=== PATIENT | female | born 1960 | race Caucasian/White ===

== ENCOUNTER 2016-07-17 07:23 | Inpatient (IN) ==
[2016-07-17] MEDS ORDERED: Ipratropium/Albuterol Neb 3 ML ONE (07:54)
[2016-07-17] MEDS ORDERED: Ipratropium/Albuterol Neb 3 ML IH ONE (07:55)
[2016-07-17 08:08] LABS: Basophils % 0.8 %; Eosinophils # 0.1 K/mcL (0.0-0.6); Hematocrit 41.3 % (35.3-44.9); Immature Granulocytes % 0.4 % (0-4); Lymphocytes # 1.1 K/mcL (0.6-4.6); Lymphocytes % 20.5 %; Mean Corpuscular HGB Conc 31.5 g/dL (31.6-35.5); Mean Corpuscular Volume 82.6 fL (83.0-100.0); Mean Platelet Volume 10.8 fL (9.4-12.4); Monocytes # 0.4 K/mcL (0.0-1.3); Monocytes % 8.4 %; Neutrophils # 3.6 K/mcL (1.6-8.9); Platelet Count 114 K/mcL (140-400); Red Cell Distribution Width 15.8 % (11.5-14.5); Segmented Neutrophils % 68.9 %
[2016-07-17] MEDS ORDERED: *HR* LORazepam 1 MG TABLET PO ONE (08:15)
--- NOTE | 2016-07-17 08:17 | Emergency Department Note ---
Disposition Clinical Impression: Acute exacerbation of chronic obstructive airways disease Disposition: Admitted As Inpatient Condition: Fair Prescriptions: LORazepam [Ativan] 1 mg PO TID PRN #6 tablet PRN Reason: Anxiety Referrals: Jona Back CNP [Primary Care Provider] - Forms: ED Satisfaction Letter Time of Disposition: 09:13 SOB HPI - General Chief Complaint: ED Shortness of Breath/Dyspnea Stated Complaint: short of breath Time Seen by Provider: 07/17/16 08:15 Source: patient Limitations: no limitations Nursing Notes Reviewed: Yes Vital Signs Reviewed: Yes - History of Present Illness 48-year-old female brought into the ED per EMS with progressive worsening of shortness of breath cough over the past week. This been ongoing for the past week. She has chronic COPD. She was given a breathing treatment in route which made her feel better. No chest pain. - Related Data Home Medications Medication Instructions Recorded Confirmed Albuterol Neb [Proventil Neb] 2.5 mg IH BID 03/31/15 07/17/16 Aspirin 325 mg PO DAILY 03/31/15 07/17/16 Buspirone [Buspar] 5 mg PO TID 03/31/15 07/17/16 Dicyclomine [Bentyl] 10 mg PO QID 03/31/15 07/17/16 Docusate [Colace] 100 mg PO DAILY 03/31/15 07/17/16 Multivitamin/Iron/Folic Acid 1 each PO DAILY 03/31/15 07/17/16 [Cerovite Advanced Form Tab] Sertraline [Zoloft] 100 mg PO BID 03/31/15 07/17/16 Simvastatin [Zocor] 10 mg PO HS 03/31/15 07/17/16 Tizanidine [Zanaflex] 4 mg PO Q8HR 03/31/15 07/17/16 Cholestyramine/Aspartame 4 gm PO DAILY 11/02/15 07/17/16 [Cholestyramine Light Packet] Ondansetron HCl [Zofran] 8 mg PO Q12H PRN 11/02/15 07/17/16 Pregabalin [Lyrica] 100 mg PO BID 11/02/15 07/17/16 Hydrocodone/Acetaminophen [[place] 1 each PO BID 11/30/15 07/17/16 5-325 Tablet] Acetaminophen [8 Hour] 650 mg PO Q6HR PRN 05/14/16 07/17/16 Esomeprazole Magnesium [Nexium] 40 mg PO DAILY 05/14/16 07/17/16 Lidocaine Patch [Lidoderm 5% patch] 1 each TP HS 05/14/16 07/17/16 Losartan Potassium [Cozaar] 100 mg PO DAILY 05/14/16 07/17/16 Metoprolol XL (24 HR) Succ [Toprol 25 mg PO DAILY 05/14/16 07/17/16 XL] Nitroglycerin [Nitrostat] 0.4 mg SL PRN PRN 05/14/16 07/17/16 Previous Rx's Medication Instructions Recorded LORazepam [Ativan] 1 mg PO TID PRN #6 tablet 07/17/16 Allergies Allergy/AdvReac Type Severity Reaction Status Date / Time Iodinated Contrast Media - Allergy Hives Verified 07/17/16 07:27 Oral and [Iodinated Contrast Media - IV Dye] Sulfa (Sulfonamide Allergy Hives Verified 07/17/16 07:27 Antibiotics) tetanus and diphtheria Allergy Hives Verified 07/17/16 07:27 toxoids [Tetanus&Diphtheria Toxoid] All systems ED: reviewed and negative except as stated. Constitutional: Denies: fever, chills, weakness, weight change ENT ED: Denies: ear pain, throat pain, dental pain, hearing loss, epistaxis, congestion, dysphagia Cardiovascular: Reports: dyspnea on exertion. Denies: chest pain, palpitations , edema, syncope Respiratory: Reports: cough, wheezes. Denies: dyspnea, hemoptysis, stridor Gastrointestinal: Denies: abdominal pain, nausea, vomiting, diarrhea, constipation, hematemesis, melena, hematochezia Genitourinary: Denies: dysuria, frequency, hematuria, discharge Musculoskeletal: Denies: back pain, neck pain, arthralgia, myalgia Integumentary: Denies: rash, abrasion, lesions Neurological: Denies: headache, weakness, numbness, paresthesias, confusion, abnormal gait, vertigo Past Medical History - Past Medical History Medical history: Reports: asthma, COPD, diabetes, GERD, hyperlipidemia, hypertension, other Surgical history: Reports: cholecystectomy, hysterectomy, knee replacement Psychiatric history: Reports: anxiety, depression FUNDER history: Reports: no FUNDER history - Social History Smoking Status: Never smoker Smokeless Tobacco Status: No Alcohol use: Reports: none Drug use: Reports: none Physical Exam - General Limitations: no limitations General appearance: alert, in no apparent distress - ENT ENT exam: normal exam, normal oropharynx, mucous membranes moist - Chest Chest inspection: Present: normal inspection, symmetric chest wall rise - Respiratory Respiratory exam: Present: wheezes - Abdominal Exam Abdominal exam: Present: soft, Non-Tender. Absent: tenderness, distention, guarding, rebound, rigidity - Extremities Exam Extremities exam: Present: normal inspection, full ROM. Absent: tenderness, pedal edema Course Vital Signs O2 Sat by Pulse Oximetry 91 L 07/17/16 07:25 Temperature 97.1 F L 07/17/16 07:34 Pulse Rate 72 07/17/16 08:32 Respiratory Rate 88 07/17/16 08:32 Blood Pressure 111/81 07/17/16 08:32 O2 Sat by Pulse Oximetry 88 L 07/17/16 08:32 Oxygen Delivery Oxygen Delivery Nasal Cannula Shortness of Breath/Dyspnea - [facility] Narrative Medical decision making narrative: copd plan admission - Lab Data Result diagrams: 07/17/16 07:50 07/17/16 07:50 Lab Results 07/17/16 07/17/16 07/17/16 Range/Units 07:50 07:50 07:50 WBC 5.2 (4.3-11.1) K/mcL RBC 5.00 H (3.82-4.97) M/mcL Hgb 13.0 (11.5-15.4) g/dL Hct 41.3 (35.3-44.9) % MCV 82.6 L (83.0-100.0) fL MCH 26.0 L (28.0-33.3) pg MCHC 31.5 L (31.6-35.5) g/dL RDW 15.8 H (11.5-14.5) % Plt Count 114 L (140-400) K/mcL MPV 10.8 (9.4-12.4) fL Immature Gran % 0.4 (0-4) % Seg Neutrophils % 68.9 % Lymphocytes % 20.5 % Monocytes % 8.4 % Eosinophils % 1.0 % Basophils % 0.8 % Neutrophils # 3.6 (1.6-8.9) K/mcL Lymphocytes # 1.1 (0.6-4.6) K/mcL Monocytes # 0.4 (0.0-1.3) K/mcL Eosinophils # 0.1 (0.0-0.6) K/mcL Basophils # 0.0 (0.0-0.2) K/mcL Sodium 142 (136-145) mEq/L Potassium 3.7 (3.5-4.5) mEq/L Chloride 105 (98-109) mEq/L Carbon Dioxide 26 (19-29) mEq/L BUN 15 (7-20) mg/dL Creatinine 0.78 (0.57-1.11) mg/dL Est GFR ( Amer) > 60 (> 60) Est GFR (Non-Af Amer) > 60 (> 60) BUN/Creatinine Ratio 19 (6-26) Glucose 124 H (70-99) mg/dL Calculated Osmolality 296 (280-300) Calcium 8.7 (8.6-10.8) mg/dL Troponin I 0.03 (0-0.03) ng/mL
[2016-07-17 08:26] LABS: BUN/Creatinine Ratio 19 (6-26); Blood Urea Nitrogen 15 mg/dL (7-20); Calcium 8.7 mg/dL (8.6-10.8); Carbon Dioxide 26 mEq/L (19-29); Chloride 105 mEq/L (98-109); Glucose 124 mg/dL (70-99); Osmolality,Calculated 296 (280-300); Potassium 3.7 mEq/L (3.5-4.5); Sodium 142 mEq/L (136-145); eGFR For African Americans > 60 (> 60); eGFR For Non-African Americans > 60 (> 60)
[2016-07-17] MEDS ORDERED: Acetaminophen 325 MG TABLET PO PRN (09:10)
--- NOTE | 2016-07-17 11:29 | Electrocardiograph Report ---
[facility] Test Date: 2016-07-17 Pat Name: Manuel Guzman Department: 2001 Room: 112 Gender: F Benzol Operator: Tlc : 1960 Requested By: Shaye Emmanuel Order Number: [id number] Reading MD: Micaela Beltran Measurements Intervals [place] Rate: 72 P: 56 OK: 166 QRS: 6 QRSD: 97 T: 56 QT: 393 QTc: 417 Interpretive Statements SINUS RHYTHM Electronically Signed On 07-17-16 11:28:45 EST by Micaela Beltran
[2016-07-17] MEDS: Levofloxacin 500 MG/100 ML 500 MG/100 ML BAG IVPB SCH (12:00)
[2016-07-17] MEDS: MethylPREDNISolone 40 MG/ML VIAL IVP SCH ×2 (15:19→23:13)
[2016-07-17 16:00] LABS: Bilirubin,Urine Negative (Negative); Blood,Urine Negative (Negative); Clarity,Urine Clear (Clear); Color,Urine Yellow (Yellow); Glucose,Urine (UA) Normal (Normal); Ketones,Urine Negative (Negative); Leukocyte Esterase,Urine Negative (Negative); Nitrite,Urine Negative (Negative); Protein,Urine 30 mg/dL (Neg-Trace); Specific Gravity,Urine >= 1.030 (1.010-1.025); Urobilinogen,Urine Normal (Normal)
[2016-07-17 16:16] LABS: WBC,Urine 0-3 per hpf (0-3)
[2016-07-17] MEDS ORDERED: Dextrose Gel 15 GM PO PRN ×2 (16:45)
[2016-07-17] MEDS ORDERED: *HR* Dextrose 50 % in Water (Syg) 50 ML SYRINGE IVP PRN (16:45)
[2016-07-17] MEDS ORDERED: D5% in Water 1,000 ML IV PRN (16:45)
[2016-07-17] MEDS: Insulin LISPRO 300 UNITS/3 ML VIAL SQ SCH ×2 (17:28→20:44)
[2016-07-17] MEDS ORDERED: *HR* HYDROcodone/Acet 5/325 mg TABLET PO SCH (21:00)
--- NOTE | 2016-07-17 21:27 | Internal Med History&Physical ---
Date of Encounter: 07/17/16 Time of Encounter: 22:02 Assessment and Plan (1) Acute exacerbation of chronic obstructive airways disease Current visit: Yes Status: Acute sHe is admitted for an acute exacerbation has smoke exposure in the home she is not a smoker. sHe also has sarcoidosis. She was hypoxic in the emergency room she is requiring 4 L for continue oxygen wean as tolerated. She is on Levaquin she is on albuterol nebs and Solu-Medrol 80 mg IV every 8 hours. We will continue to follow her she is not stable for discharge her oxygen saturation has to be improved and her breathing has improved. tHey tried To get her home in the emergency room with DuoNeb's and the Solu-Medrol but she was not stable for discharge due to her hypoxia. (2) Chronic back pain greater than 3 months duration Current visit: No Status: Acute She is on Lyrica and Zanaflex [place] at home we will continue to follow. (3) DVT prophylaxis Current visit: No Status: Acute sHe is on Lovenox for this (4) Hyperlipidemia Current visit: No Status: Acute Continue her home simvastatin. Qualifiers: Hyperlipidemia type: mixed hyperlipidemia Qualified Code(s): E78.2 - Mixed hyperlipidemia (5) Hypothyroidism Current visit: No Status: Acute She has not been on medication for this we will check a TSH in the a.m. this is on her old medical: History Qualifiers: Hypothyroidism type: acquired Qualified Code(s): E03.9 - Hypothyroidism, unspecified (6) Depression Current visit: No Status: Chronic Continue her home medications of BuSpar and Zoloft Qualifiers: Depression Type: other depression Qualified Code(s): F32.89 - Other specified depressive episodes (7) Diabetes mellitus type 2, diet-controlled Current visit: No Status: Chronic This is on her old chart will check hemoglobin A1c she is getting sliding scale and Accu-Cheks. (8) GERD (gastroesophageal reflux disease) Current visit: No Status: Chronic We will continue her home PPI. 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 Qualifiers: Irritable bowel syndrome type: with diarrhea Qualified Code(s): K58.0 - Irritable bowel syndrome with diarrhea Internal Medicine - H&P: HPI Chief complaint: can't breathe Admitted From: Home History of present illness: Ms. Guzman is a 56 year old female Past medical history of COPD and lung sarcoidosis present to the emergency room by squad after she was short of breath at home. sHe was given several duo nebs and Solu-Medrol with minimal improvement she still remained hypoxic requiring 4 L of oxygen per nasal cannula to keep her saturations in the 90s. Was not stable to go home she is admitted for further evaluation and treatment of her COPD. she started feeling sick on Saturday. It started with a cough and progressed to shortness of breath and wheezing. She has been having chills she does not have a known fever. She has been having night sweats she has been coughing up yellow sputum. She just got over having pneumonia last month. She was at home with her who is a smoker. He does smoke in the house. Her appetite has not been great but she has been drinking well. She is also complaining of some dysuria. Her urine has been sent for culture. Currently she is resting in the bed and comfortable she does have audible wheezing. Past Med Surg Social Fam HX - Past Medical History Source: patient Medical history: asthma, COPD, diabetes (with diabetic polyneuropathy), GERD, glaucoma, hyperlipidemia, hypertension, thyroid disease (hypothyroid), other ( sarcoidosis, RLS, fibromyalagia, lumbar spondylosis, chronic pain syndrome) Psychiatric history: anxiety, depression - Past Surgical History Surgical History: cholecystectomy (1996), hysterectomy (1994), knee replacement (right 2013, left 08/23/14), other (eye for glaucoma left 2010, dental extraction , eye lid 2010, EGD 11/10/15, colonoscopy polyps 2006, 2010) - Social History Smoking Status: Never smoker Smokeless Tobacco Status: No Alcohol use: none Drug use: none - Family History Mother Living Status: Still Living Hx Family Cardiac Disorders: Yes ("Heart problems", carotid artery disease) Hx Family Respiratory Disorders: Yes Hx Family Reproductive Disorders: Yes (ovarian cyst) Father Living Status: Age at : 67 Hx Family Cardiac Disorders: Yes (Some type of heart condition or CAD, CVA) Brother Hx Family Endocrine Disorder: Yes (dm2) Hx Family Neuromuscular Disorders: Yes (cva) Paternal Grandmother Living Status: Hx Family Cancer: Yes (eye) Maternal Grandfather Living Status: Hx Family Neuromuscular Disorders: Yes (cva) Internal Medicine - H&P: Meds Albuterol Neb [Proventil Neb] 2.5 mg IH BID 03/31/15 [History] Aspirin 325 mg PO DAILY 03/31/15 [History] Buspirone [Buspar] 5 mg PO TID 03/31/15 [History] Dicyclomine [Bentyl] 10 mg PO QID 03/31/15 [History] Docusate [Colace] 100 mg PO DAILY 03/31/15 [History] Multivitamin/Iron/Folic Acid [Cerovite Advanced Form Tab] 1 each PO DAILY [History] Sertraline [Zoloft] 100 mg PO BID 03/31/15 [History] Simvastatin [Zocor] 10 mg PO HS 03/31/15 [History] Tizanidine [Zanaflex] 4 mg PO Q8HR 03/31/15 [History] Cholestyramine/Aspartame [Cholestyramine Light Packet] 4 gm PO DAILY 11/02/15 [ History] Ondansetron HCl [Zofran] 8 mg PO Q12H PRN 11/02/15 [History] Pregabalin [Lyrica] 100 mg PO BID 11/02/15 [History] Acetaminophen [8 Hour] 650 mg PO Q6HR PRN 05/14/16 [History] Esomeprazole Magnesium [Nexium] 40 mg PO DAILY 05/14/16 [History] Lidocaine Patch [Lidoderm 5% patch] 1 each TP HS 05/14/16 [History] Losartan Potassium [Cozaar] 100 mg PO DAILY 05/14/16 [History] Metoprolol XL (24 HR) Succ [Toprol XL] 25 mg PO DAILY 05/14/16 [History] Nitroglycerin [Nitrostat] 0.4 mg SL PRN PRN 05/14/16 [History] Albuterol Neb [Proventil Neb] 2.5 mg IH Q4HR 07/17/16 [History] Furosemide [Lasix] 80 mg PO DAILY 07/17/16 [History] HYDROcodone/Acet 10/325 mg [[place] 10-325 mg] 1 tab PO BID PRN 07/17/16 [History] LORazepam [Ativan] 1 mg PO TID PRN #6 tablet 07/17/16 [Rx] Potassium Chloride [Klor-Con 10] 10 meq PO DAILY 07/17/16 [History] Allergies Iodinated Contrast Media - Oral and [Iodinated Contrast Media - IV Dye] Allergy (Verified 07/17/16 07:27) Hives Sulfa (Sulfonamide Antibiotics) Allergy (Verified 07/17/16 07:27) Hives tetanus and diphtheria toxoids [Tetanus&Diphtheria Toxoid] Allergy (Verified 07:27) Hives All Systems PM: A 10-system review of systems was performed and is negative for pertinent findings except as documented above in the HPI. - Constitutional Constitutional: chills, fatigue, night sweats, no fever(s) - EENT Eyes: loss of vision (She was supposed to have surgery on her right eye today.) Nose, mouth and throat: nasal discharge, post-nasal drip - Cardiovascular Cardiovascular ROS IM: dyspnea, no chest pain, no edema, no lightheadedness, no palpitations, no syncope - Respiratory Respiratory: cough, dyspnea, wheezing, chest congestion, excessive phlegm production (Yellow in color) - Gastrointestinal Gastrointestinal: diarrhea (This is chronic for her and has not changed), nausea , vomiting (She threw up once this morning and has not had any emesis since), no constipation, no hematochezia, no melena - Genitourinary Genitourinary: dysuria, urinary frequency - Musculoskeletal Musculoskeletal ROS IM: arthralgias (Chronic), myalgias (Chronic) - Integumentary Integumentary IM: no pruritus, no rash - Neurological Neurological ROS: headache(s) (She has a history of migraines), numbness - Constitutional Vitals: Temp Pulse Resp BP Pulse Ox 98.7 F 71 18 138/78 95 07/17/16 18:58 07/17/16 18:58 07/17/16 18:58 07/17/16 18:58 07/17/16 20:34 General appearance: Present: A&O X 3, no acute distress - Head Head exam: Present: atraumatic, normocephalic - Neck Neck exam general surgery: Present: normal inspection, supple, trachea midline. Absent: lymphadenopathy, tenderness, thyromegaly - Respiratory Respiratory exam: Present: decreased breath sounds, prolonged expiratory phase, wheezes. Absent: accessory muscle use - Cardiovascular Cardiovascular exam: Present: RRR, +S1, +S2 - GI/Abdominal GI/Abdominal exam: Present: normal bowel sounds, soft, no peritoneal signs. Absent: distended, guarding, tenderness - Extremities Exam Extremities exam: Present: normal capillary refill, warm. Absent: pedal edema - Skin Skin exam: Present: dry, warm. Absent: rash Internal Med - H&P Results - Labs CBC & Chem 7: 07/17/16 07:50 07/17/16 07:50 Labs: Urine 07/17/16 Range/Units 15:50 Urine Color Yellow (Yellow) Urine Clarity Clear (Clear) Urine pH 6.0 (5.0-8.0) pH Units Ur Specific [place] >= 1.030 H (1.010-1.025) Urine Protein 30 H (Neg-Trace) mg/dL Urine Glucose (UA) Normal (Normal) mg/dL
[2016-07-17] MEDS ORDERED: Albuterol 2.5 MG/3 ML NEBULIZER IH PRN (22:29)
[2016-07-17] MEDS: Ondansetron ODT 4 MG TAB.RAPDIS SL PRN (23:20)
[2016-07-18 05:35] LABS: Basophils % 0.2 %; Hematocrit 42.2 % (35.3-44.9); Hemoglobin 13.5 g/dL (11.5-15.4); Immature Granulocytes % 1.8 % (0-4); Lymphocytes # 0.6 K/mcL (0.6-4.6); Lymphocytes % 11.3 %; Mean Corpuscular Volume 81.2 fL (83.0-100.0); Mean Platelet Volume 10.7 fL (9.4-12.4); Monocytes # 0.2 K/mcL (0.0-1.3); Monocytes % 2.7 %; Neutrophils # 4.6 K/mcL (1.6-8.9); Platelet Count 134 K/mcL (140-400); Red Cell Distribution Width 15.2 % (11.5-14.5)
[2016-07-18 05:43] LABS: BUN/Creatinine Ratio 22 (6-26); Blood Urea Nitrogen 17 mg/dL (7-20); Calcium 9.2 mg/dL (8.6-10.8); Carbon Dioxide 24 mEq/L (19-29); Chloride 108 mEq/L (98-109); Glucose 167 mg/dL (70-99); Osmolality,Calculated 305 (280-300); Potassium 3.9 mEq/L (3.5-4.5); Sodium 145 mEq/L (136-145); eGFR For African Americans > 60 (> 60); eGFR For Non-African Americans > 60 (> 60)
[2016-07-18] MEDS: Albuterol 2.5 MG/3 ML NEBULIZER IH SCH ×2 (05:51→08:59)
[2016-07-18] MEDS: *HR* Enoxaparin 40 MG/0.4 ML SYRINGE SQ SCH (05:51)
[2016-07-18] MEDS: *HR* HYDROcodone/Acet 10/325 mg TABLET PO PRN ×2 (05:52→20:45)
[2016-07-18] MEDS: Aspirin 325 MG TABLET PO SCH (08:10)
[2016-07-18] MEDS: Metoprolol XL (24 HR) Succ 25 MG TAB.ER.24H PO SCH (08:10)
[2016-07-18] MEDS: Furosemide 40 MG TABLET PO SCH (08:10)
[2016-07-18] MEDS: MethylPREDNISolone 40 MG/ML VIAL IVP SCH ×2 (08:11→15:13)
[2016-07-18] MEDS: Insulin LISPRO 300 UNITS/3 ML VIAL SQ SCH ×4 (08:13→20:35)
[2016-07-18] MEDS: Levofloxacin 500 MG/100 ML 500 MG/100 ML BAG IVPB SCH (08:59)
[2016-07-18 10:53] LABS: Hemoglobin A1C 6.2 %
[2016-07-18] MEDS: Ondansetron ODT 4 MG TAB.RAPDIS SL PRN ×2 (10:56→17:34)
--- NOTE | 2016-07-18 13:13 | Internal Med Progress Note ---
Date of Encounter: 07/18/16 Time of Encounter: 13:43 - Assessment and plan (1) Acute exacerbation of chronic obstructive airways disease Current Visit: Yes Status: Acute Assessment and plan: will continue with the nebs, solumedrol, levaquin and oxygen. she is still having the high oxygen requirements (2) Chronic back pain greater than 3 months duration Current Visit: No Status: Acute Assessment and plan: will continue her home medication (3) DVT prophylaxis Current Visit: No Status: Acute Assessment and plan: lovenox (4) Hyperlipidemia Current Visit: No Status: Acute Assessment and plan: continue home medication Qualifiers: Hyperlipidemia type: mixed hyperlipidemia Qualified Code(s): E78.2 - Mixed hyperlipidemia (5) Hypothyroidism Current Visit: No Status: Acute Assessment and plan: she is not on medication and her tsh was normal Qualifiers: Hypothyroidism type: acquired Qualified Code(s): E03.9 - Hypothyroidism, unspecified (6) Depression Current Visit: No Status: Chronic Assessment and plan: continue home medication. stable Qualifiers: Depression Type: other depression Qualified Code(s): F32.89 - Other specified depressive episodes (7) Diabetes mellitus type 2, diet-controlled Current Visit: No Status: Chronic Assessment and plan: ssi and accuchecks. 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 she is still sob, not her usual self. pain is her normal. still with nausea, no emesis. - Constitutional Vitals: Temp Pulse Resp BP Pulse Ox 98.1 F 65 16 126/52 92 L 07/18/16 11:00 07/18/16 11:00 07/18/16 11:00 07/18/16 11:00 07/18/16 11:00 General appearance: Present: A&O X 3, no acute distress - Head Head exam: Present: atraumatic, normocephalic - Neck Neck exam general surgery: Present: supple, trachea midline. Absent: lymphadenopathy, tenderness - Respiratory Respiratory exam: Present: decreased breath sounds, prolonged expiratory phase, wheezes - Cardiovascular Cardiovascular exam: Present: RRR, +S1, +S2 - GI/Abdominal GI/Abdominal exam: Present: normal bowel sounds, soft, no peritoneal signs. Absent: guarding, tenderness - Extremities Exam Extremities exam: Present: normal capillary refill, warm. Absent: pedal edema - Skin Skin exam: Present: diaphoretic, warm. Absent: rash Internal Medicine: Result - Labs CBC & Chem 7: 07/18/16 05:15 07/18/16 05:15 Labs: Short CBC 07/18/16 Range/Units 05:15 WBC 5.5 (4.3-11.1) K/mcL Hgb 13.5 (11.5-15.4) g/dL Hct 42.2 (35.3-44.9) % Plt Count 134 L (140-400) K/mcL Neutrophils # 4.6 (1.6-8.9) K/mcL BMP 07/18/16 05:15 Sodium 145 Potassium 3.9 Chloride 108 Carbon Dioxide 24 BUN 17 Creatinine 0.76 Glucose 167 H Calcium 9.2 Urine 07/17/16 Range/Units 15:50 Urine Color Yellow (Yellow) Urine Clarity Clear (Clear) Urine pH 6.0 (5.0-8.0) pH Units Ur Specific [place] >= 1.030 H (1.010-1.025) Urine Protein 30 H (Neg-Trace) mg/dL Urine Glucose (UA) Normal (Normal) mg/dL Consult Discharge Plan - Plan Referrals: Jona Back CNP [Primary Care Provider] -
[2016-07-18] MEDS ORDERED: Albuterol 2.5 MG/3 ML NEBULIZER IH PRN (13:47)
[2016-07-18] MEDS: Ipratropium/Albuterol Neb 3 ML IH SCH ×3 (15:13→20:46)
[2016-07-19] MEDS: MethylPREDNISolone 40 MG/ML VIAL IVP SCH ×4 (00:05→23:11)
[2016-07-19] MEDS: Ipratropium/Albuterol Neb 3 ML IH SCH ×4 (04:52→23:10)
[2016-07-19] MEDS: *HR* Enoxaparin 40 MG/0.4 ML SYRINGE SQ SCH (05:58)
--- NOTE | 2016-07-19 08:29 | Internal Med Progress Note ---
Date of Encounter: 07/19/16 Time of Encounter: 08:28 - Assessment and plan (1) Acute exacerbation of chronic obstructive airways disease Current Visit: Yes Status: Acute Assessment and plan: will continue with the nebs, solumedrol, levaquin and oxygen. she is still having the high oxygen requirements. will have her try to wean the oxygen today. will likely still need several more days stay. changed to an admission yesterday. will likely need to go home on oxygen. It has been arranged but she will need to be requalified. (2) Chronic back pain greater than 3 months duration Current Visit: No Status: Acute Assessment and plan: will continue her home medication. it is at her baseline (3) DVT prophylaxis Current Visit: No Status: Acute Assessment and plan: lovenox. she is supposed to get up for a shower today (4) Hyperlipidemia Current Visit: No Status: Acute Assessment and plan: continue home medication Qualifiers: Hyperlipidemia type: mixed hyperlipidemia Qualified Code(s): E78.2 - Mixed hyperlipidemia (5) Hypothyroidism Current Visit: No Status: Acute Assessment and plan: she is not on medication and her tsh was normal. she is not hypothyroid Qualifiers: Hypothyroidism type: acquired Qualified Code(s): E03.9 - Hypothyroidism, unspecified (6) Depression Current Visit: No Status: Chronic Assessment and plan: continue home medication. stable Qualifiers: Depression Type: other depression Qualified Code(s): F32.89 - Other specified depressive episodes (7) Diabetes mellitus type 2, diet-controlled Current Visit: No Status: Chronic Assessment and plan: ssi and accuchecks. her hga1c was in range. she was not on medication prior to admission (8) GERD (gastroesophageal reflux disease) Current Visit: No Status: Chronic Assessment and plan: continue home medication. she had some nausea yesterday. we decreased the dose of the zofran to increase the frequency of it and it seems to be helping this am. 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 she often has diarrhea. she is suffering from constipation this visit. she took colace last night and will get another this am. Qualifiers: Irritable bowel syndrome type: with diarrhea Qualified Code(s): K58.0 - Irritable bowel syndrome with diarrhea - Subjective Interval history: she continues to require 3-4 l to keep her oxygen sats up. she is still sob, not her usual self. pain is her normal for her. still with nausea, but better today. ate a small amount of breakfast, no emesis. still no stool she took colace last night no result. will try again today. she is very tired. - Constitutional Vitals: Temp Pulse Resp BP Pulse Ox 98.5 F 71 18 158/71 94 L 07/19/16 07:22 07/19/16 07:22 07/19/16 07:22 07/19/16 07:22 07/19/16 07:22 General appearance: Present: A&O X 3, no acute distress - Head Head exam: Present: atraumatic, normocephalic - Neck Neck exam general surgery: Present: supple, trachea midline. Absent: lymphadenopathy, tenderness - Respiratory Respiratory exam: Present: decreased breath sounds, prolonged expiratory phase, wheezes - Cardiovascular Cardiovascular exam: Present: RRR, +S1, +S2 - GI/Abdominal GI/Abdominal exam: Present: normal bowel sounds, soft, no peritoneal signs. Absent: distended, guarding, tenderness - Extremities Exam Extremities exam: Present: normal capillary refill, warm. Absent: pedal edema - Skin Skin exam: Present: dry, warm. Absent: rash Internal Medicine: Result - Labs CBC & Chem 7: 07/18/16 05:15 07/18/16 05:15 Consult Discharge Plan - Plan Referrals: Jona Back CNP [Primary Care Provider] -
[2016-07-19] MEDS: *HR* HYDROcodone/Acet 10/325 mg TABLET PO PRN ×2 (08:43→23:10)
[2016-07-19] MEDS: Metoprolol XL (24 HR) Succ 25 MG TAB.ER.24H PO SCH (08:43)
[2016-07-19] MEDS: Ondansetron ODT 4 MG TAB.RAPDIS SL PRN ×2 (08:44→23:28)
[2016-07-19] MEDS: Aspirin 325 MG TABLET PO SCH (08:44)
[2016-07-19] MEDS: Levofloxacin 500 MG/100 ML 500 MG/100 ML BAG IVPB SCH (08:44)
[2016-07-19] MEDS: Furosemide 40 MG TABLET PO SCH (08:44)
[2016-07-19] MEDS: Insulin LISPRO 300 UNITS/3 ML VIAL SQ SCH ×4 (08:45→23:10)
[2016-07-20] MEDS: Ipratropium/Albuterol Neb 3 ML IH SCH ×4 (05:20→22:04)
[2016-07-20] MEDS: *HR* Enoxaparin 40 MG/0.4 ML SYRINGE SQ SCH (05:20)
[2016-07-20 05:43] LABS: Basophils % 0.2 %; Hematocrit 39.8 % (35.3-44.9); Hemoglobin 12.6 g/dL (11.5-15.4); Immature Granulocytes % 1.3 % (0-4); Lymphocytes # 0.9 K/mcL (0.6-4.6); Lymphocytes % 15.1 %; Mean Corpuscular HGB Conc 31.7 g/dL (31.6-35.5); Mean Corpuscular Hemoglobin 25.6 pg (28.0-33.3); Mean Corpuscular Volume 80.9 fL (83.0-100.0); Mean Platelet Volume 10.8 fL (9.4-12.4); Monocytes # 0.3 K/mcL (0.0-1.3); Monocytes % 4.8 %; Neutrophils # 4.7 K/mcL (1.6-8.9); Platelet Count 148 K/mcL (140-400); Red Blood Count 4.92 M/mcL (3.82-4.97); Red Cell Distribution Width 15.5 % (11.5-14.5); Segmented Neutrophils % 78.6 %
[2016-07-20 05:57] LABS: BUN/Creatinine Ratio 34 (6-26); Blood Urea Nitrogen 28 mg/dL (7-20); Calcium 9.1 mg/dL (8.6-10.8); Carbon Dioxide 30 mEq/L (19-29); Chloride 104 mEq/L (98-109); Glucose 151 mg/dL (70-99); Osmolality,Calculated 308 (280-300); Potassium 3.8 mEq/L (3.5-4.5); Sodium 145 mEq/L (136-145); eGFR For African Americans > 60 (> 60); eGFR For Non-African Americans > 60 (> 60)
--- NOTE | 2016-07-20 06:53 | Internal Med Progress Note ---
Date of Encounter: 07/20/16 Time of Encounter: 06:47 - Assessment and plan (1) Acute exacerbation of chronic obstructive airways disease Current Visit: Yes Status: Acute Assessment and plan: She is still requiring oxygen at 2 L to maintain saturations at 92%. She still is getting dyspneic with minimal exertion. Continue with oxygen, steroids and try to increase activity level. (2) IBS (irritable bowel syndrome) Current Visit: Yes Status: Acute Assessment and plan: No new complaints. She said she had nausea and required Zofran at bedtime and this is a frequent occurrence. Qualifiers: Irritable bowel syndrome type: with diarrhea Qualified Code(s): K58.0 - Irritable bowel syndrome with diarrhea (3) Chronic back pain greater than 3 months duration Current Visit: No Status: Acute Assessment and plan: She had no complaints of back pain. (4) Diabetes mellitus type 2, diet-controlled Current Visit: No Status: Chronic Assessment and plan: Will continue to monitor her blood sugars. Her glycohemoglobin was 6.2%. Sugars elevated due to her steroids. Typically she has diet controlled. (5) GERD (gastroesophageal reflux disease) Current Visit: No Status: Chronic Assessment and plan: Continue with her chronic medication. No new symptoms. Qualifiers: Esophagitis presence: esophagitis presence not specified Qualified Code(s) : K21.9 - Gastro-esophageal reflux disease without esophagitis (6) Hypertension Current Visit: No Status: Chronic Assessment and plan: Blood pressures are mildly increase intermittently. We will continue to monitor. Continue her current medication. Qualifiers: Hypertension type: essential hypertension Qualified Code(s): I10 - Essential (primary) hypertension (7) DVT prophylaxis Current Visit: No Status: Acute Assessment and plan: Continue with Lovenox for DVT prophylaxis and increase her activity. - Subjective Interval history: Patient states she is still coughing, but improved and it is not productive. She still gets short of breath when walking or in the shower and recuperating after the shower. She denies any cardiac type chest pain. Her bowels have moved and no abdominal pain. No tenderness or swelling and lower extremities. She is able to walk about 10 feet to the toilet but she becomes dyspneic doing so. - Constitutional Vitals: Temp Pulse Resp BP Pulse Ox 98.7 F 70 16 147/65 92 L 07/20/16 04:00 07/20/16 04:00 07/20/16 04:00 07/20/16 04:00 07/20/16 04:00 General appearance: Present: A&O X 3, no acute distress - Respiratory Additional comments: Diminished breath sounds and has end expiratory wheezes. No respiratory distress. - Cardiovascular Cardiovascular exam: Present: RRR, +S1, +S2. Absent: systolic murmur - GI/Abdominal GI/Abdominal exam: Present: soft. Absent: mass, tenderness - Extremities Exam Extremities exam: Absent: calf tenderness, pedal edema, tenderness Internal Medicine: Result - Labs CBC & Chem 7: 07/20/16 05:05 07/20/16 05:05 Labs: Short CBC 07/20/16 Range/Units 05:05 WBC 6.0 (4.3-11.1) K/mcL Hgb 12.6 (11.5-15.4) g/dL Hct 39.8 (35.3-44.9) % Plt Count 148 (140-400) K/mcL Neutrophils # 4.7 (1.6-8.9) K/mcL BMP 07/20/16 05:05 Sodium 145 Potassium 3.8 Chloride 104 Carbon Dioxide 30 H BUN 28 H D Creatinine 0.82 Glucose 151 H Calcium 9.1 Labs have been reviewed. Mildly elevated glucose from the steroids, glycohemoglobin is 6.2%. She takes no medication. May need to consider sliding scale insulin. Consult Discharge Plan - Plan Referrals: Jona Back CNP [Primary Care Provider] -
[2016-07-20] MEDS: MethylPREDNISolone 40 MG/ML VIAL IVP SCH ×2 (09:12→16:53)
[2016-07-20] MEDS: Aspirin 325 MG TABLET PO SCH (09:12)
[2016-07-20] MEDS: *HR* HYDROcodone/Acet 10/325 mg TABLET PO PRN ×2 (09:12→22:03)
[2016-07-20] MEDS: Levofloxacin 500 MG/100 ML 500 MG/100 ML BAG IVPB SCH (09:13)
[2016-07-20] MEDS: Metoprolol XL (24 HR) Succ 25 MG TAB.ER.24H PO SCH (09:13)
[2016-07-20] MEDS: Furosemide 40 MG TABLET PO SCH (09:13)
[2016-07-20] MEDS: Insulin LISPRO 300 UNITS/3 ML VIAL SQ SCH ×4 (09:14→22:03)
[2016-07-20] MEDS: Ondansetron ODT 4 MG TAB.RAPDIS SL PRN (22:02)
[2016-07-21] MEDS: MethylPREDNISolone 40 MG/ML VIAL IVP SCH ×2 (00:34→09:25)
[2016-07-21] MEDS: Ipratropium/Albuterol Neb 3 ML IH SCH ×4 (04:06→20:56)
[2016-07-21] MEDS: *HR* Enoxaparin 40 MG/0.4 ML SYRINGE SQ SCH (04:07)
[2016-07-21] MEDS: Ondansetron ODT 4 MG TAB.RAPDIS SL PRN ×3 (09:23→20:56)
[2016-07-21] MEDS: Metoprolol XL (24 HR) Succ 25 MG TAB.ER.24H PO SCH (09:23)
[2016-07-21] MEDS: Furosemide 40 MG TABLET PO SCH (09:24)
[2016-07-21] MEDS: Insulin LISPRO 300 UNITS/3 ML VIAL SQ SCH ×4 (09:25→20:56)
[2016-07-21] MEDS: Aspirin 325 MG TABLET PO SCH (09:25)
--- NOTE | 2016-07-21 14:39 | Internal Med Progress Note ---
Date of Encounter: 07/21/16 Time of Encounter: 14:34 - Assessment and plan (1) Acute exacerbation of chronic obstructive airways disease Current Visit: Yes Status: Acute Assessment and plan: She is improving from her acute exacerbation of chronic COPD/acute respiratory failure. We have been able to wean her oxygen from 4 L down to 1 L. I will decrease her Solu-Medrol. Continue with their nebulizer treatments. Try to increase your activity level and see how her respiratory symptoms do. (2) IBS (irritable bowel syndrome) Current Visit: Yes Status: Acute Assessment and plan: History of irritable bowel syndrome takes numerous medications. Some were cut back on admission, now she is having nausea. I am not sure if this is from irritable bowel or not. She does not have an acute abdomen. She has no abnormal findings on examination. Could she be having withdrawal from the Lyrica? I will restart her usual medications including cholestyramine and Bentyl and see what happens. Qualifiers: Irritable bowel syndrome type: with diarrhea Qualified Code(s): K58.0 - Irritable bowel syndrome with diarrhea (3) Chronic back pain greater than 3 months duration Current Visit: No Status: Acute Assessment and plan: She has chronic back pain. It is hard to gauge how much pain she is having compared to her baseline. Her Lidoderm patch and Lyrica were held. I will restart those and see how she does. (4) Diabetes mellitus type 2, diet-controlled Current Visit: No Status: Chronic Assessment and plan: Sugars are under reasonable control despite the IV steroid use. Her glycohemoglobin is good. We will continue to monitor. (5) GERD (gastroesophageal reflux disease) Current Visit: No Status: Chronic Assessment and plan: Seems to be under reasonable control unless this is the source of her nausea. Will continue PPI and we have restarted her irritable bowel medications. Qualifiers: Esophagitis presence: esophagitis presence not specified Qualified Code(s) : K21.9 - Gastro-esophageal reflux disease without esophagitis (6) Hypertension Current Visit: No Status: Chronic Assessment and plan: Blood pressure is under reasonable control. We will continue to monitor. Qualifiers: Hypertension type: essential hypertension Qualified Code(s): I10 - Essential (primary) hypertension (7) Morbid obesity with BMI of 40.0-44.9, adult Current Visit: Yes Status: Acute Assessment and plan: She is morbid obesity with a BMI of 42. This is likely of exogenous etiology. She is unlikely to be able to exercise this away. This likely contributes to some of her lassitude and respiratory symptoms. (8) DVT prophylaxis Current Visit: No Status: Acute - Subjective Interval history: Patient states that she slept well last night and also cat naps. She denies any cardiac type chest pain. She told me she feels "tired" and nauseated. She denies any sputum production. She thinks her breathing is better. The nurses report that without oxygen her saturations are in the mid to high 80s, with 1 L she is in the 90s. She complains of nausea. She points to the mid-abdominal area. She has had no vomiting. Does not correlate it with her meals, medications, position etc. She did not have much if any lunch today. According to the chart, she has not been getting cholestyramine nor Bentyl that she takes it home. Possibly that is why she is having some G.I. symptoms. At first I asked how her pain control was, and she said it was about the same as at home. Then when I told her that Lidoderm patch and Lyrica were not on her inpatient med list she thought she needed those back again. I wonder if she may be having some nausea from withdrawal from the Lyrica? Sometimes it is hard to know what she is thinking. She said she was tired and not feeling well and nauseated, and then in the next breath she is asking if she can go home tomorrow. It is sometimes hard to figure out her symptoms - Constitutional Vitals: Temp Pulse Resp BP Pulse Ox 97.9 F 64 16 145/84 94 L 07/21/16 11:37 07/21/16 11:37 07/21/16 11:37 07/21/16 11:37 07/21/16 11:37 General appearance: Present: A&O X 3, no acute distress, obese - Respiratory Additional comments: Mild end expiratory wheezes in all lung islas. No crackles. No respiratory distress. She can lie flat and have no breathing problems. - GI/Abdominal GI/Abdominal exam: Present: normal bowel sounds, soft, no peritoneal signs. Absent: firm, guarding, pulsatile mass, rebound, rigid, splenomegaly, tenderness - Extremities Exam Extremities exam: Absent: calf tenderness, pedal edema, tenderness Internal Medicine: Result - Labs CBC & Chem 7: 07/20/16 05:05 07/20/16 05:05 Consult Discharge Plan - Plan Referrals: Jona Back CNP [Primary Care Provider] -
[2016-07-21] MEDS: Pregabalin 75 MG CAPSULE PO SCH ×2 (16:52→20:55)
[2016-07-21] MEDS: *HR* HYDROcodone/Acet 10/325 mg TABLET PO PRN (20:56)
[2016-07-22] MEDS: *HR* Enoxaparin 40 MG/0.4 ML SYRINGE SQ SCH (05:31)
[2016-07-22] MEDS: Ipratropium/Albuterol Neb 3 ML IH SCH ×2 (05:32→08:39)
[2016-07-22] MEDS: Ondansetron ODT 4 MG TAB.RAPDIS SL PRN ×2 (06:51→11:18)
[2016-07-22] MEDS ORDERED: Cholestyramine 4 GM POWD.PACK PO SCH (07:00)
[2016-07-22] MEDS: Metoprolol XL (24 HR) Succ 25 MG TAB.ER.24H PO SCH (08:37)
[2016-07-22] MEDS: Furosemide 40 MG TABLET PO SCH (08:37)
[2016-07-22] MEDS: Pregabalin 75 MG CAPSULE PO SCH (08:38)
[2016-07-22] MEDS: Aspirin 325 MG TABLET PO SCH (08:38)
[2016-07-22] MEDS: Insulin LISPRO 300 UNITS/3 ML VIAL SQ SCH ×2 (08:39→12:20)
[2016-07-22] MEDS: *HR* HYDROcodone/Acet 10/325 mg TABLET PO PRN (11:18)
[2016-07-22 12:14] VITALS: BP 130/82
--- NOTE | 2016-07-22 13:58 | Internal Med Progress Note ---
Date of Encounter: 07/22/16 Time of Encounter: 13:55 - Assessment and plan (1) Acute exacerbation of chronic obstructive airways disease Current Visit: Yes Status: Acute Assessment and plan: She is feeling better, but saturations dropped while on room air when out of bed /walking and she became dizzy and had to return via wheelchair. Her lungs sound better today though. Will continue with the nebulizer treatments, will continue IV steroids taper, oxygen PRN. I have requested evaluation for swing bed. (2) IBS (irritable bowel syndrome) Current Visit: Yes Status: Acute Assessment and plan: She thinks her stomach is doing better. Her exam is normal. Qualifiers: Irritable bowel syndrome type: with diarrhea Qualified Code(s): K58.0 - Irritable bowel syndrome with diarrhea (3) Chronic back pain greater than 3 months duration Current Visit: No Status: Acute Assessment and plan: She feels better having restarted the Lidoderm patch and Lyrica (4) Diabetes mellitus type 2, diet-controlled Current Visit: No Status: Chronic Assessment and plan: Minimally elevated glucose because of her IV steroids. (5) GERD (gastroesophageal reflux disease) Current Visit: No Status: Chronic Qualifiers: Esophagitis presence: esophagitis presence not specified Qualified Code(s) : K21.9 - Gastro-esophageal reflux disease without esophagitis (6) Hypertension Current Visit: No Status: Chronic Assessment and plan: Blood pressure adequately controlled. Qualifiers: Hypertension type: essential hypertension Qualified Code(s): I10 - Essential (primary) hypertension (7) Morbid obesity with BMI of 40.0-44.9, adult Current Visit: Yes Status: Acute (8) DVT prophylaxis Current Visit: No Status: Acute - Subjective Interval history: Patient states that she was feeling really good today and wanted to try to go home. She had taken a walk earlier today down to the lobby and back and did fairly well, with oxygen. We took her off of the oxygen in bed and she was 94% . I reevaluated her about an hour later and when she had been out of bed without oxygen saturation dropped 84%, she developed a headache and dizziness and had to be brought back to the room in a wheelchair. She feels better now with oxygen in place and sats are now in the mid-90s again. Prior to this, she said she was feeling good. She denies any new chest pain, she states she always gets an ache in the left side of her chest which is stable. She said she was getting some green sputum production now. No fever or chills. Her abdomen feels better with her chronic medications restarted and the use of Zofran. She thinks her pain is under better control with restarting her Lyrica and her Lidoderm. She denies any calf pain or swelling. - Constitutional Vitals: Temp Pulse Resp BP Pulse Ox 97.6 F 64 18 130/82 93 L 07/22/16 12:00 07/22/16 12:00 07/22/16 12:00 07/22/16 12:07/22/16 12:00 General appearance: Present: A&O X 3, no acute distress, obese - Respiratory Additional comments: Slightly diminished breath sounds but clear today. No wheezing heard. Last treatment was about 4 hours ago. - Cardiovascular Cardiovascular exam: Present: RRR, +S1, +S2. Absent: systolic murmur - GI/Abdominal GI/Abdominal exam: Present: soft, no peritoneal signs. Absent: tenderness - Extremities Exam Extremities exam: Absent: calf tenderness, pedal edema Internal Medicine: Result - Labs CBC & Chem 7: 07/20/16 05:05 07/20/16 05:05 Consult Discharge Plan - Plan Referrals: Jona Back CNP [Primary Care Provider] -
--- NOTE | 2016-07-22 15:36 | Discharge Summary ---
Date of Encounter: 07/22/16 Time of Encounter: 15:33 - Discharge Diagnosis (1) Acute exacerbation of chronic obstructive airways disease Priority: Primary Status: Acute Comments: She was admitted with exacerbation of COPD, hypoxia that could not be improved in the ER. She was placed on Levaquin, aggressive aerosol treatments, IV steroids. She was required 4 L per nasal cannula and is now weaned down to 1/2 to 1 L per nasal cannula. We tried to wean her to room air today, but when she was out of bed her saturations dropp84%, she became dizzy and had to be brought back to her room via wheelchair. She improved/recuperated with oxygen per nasal cannula. At that point we decided she would be continued hospitalization/shelter care and she was transferred to a swing bed. Current medications were continued. (2) IBS (irritable bowel syndrome) Priority: Secondary Status: Acute Comments: She had acute flareup of her abdominal symptoms with nausea and cramping. These were improved after restarting Bentyl and cholestyramine. Occasionally she will have some right-sided abdominal discomfort, not unusual for her. She is also had nausea is required Zofran. There is been no vomiting. Her abdominal examination today was normal. Qualifiers: Irritable bowel syndrome type: with diarrhea Qualified Code(s): K58.0 - Irritable bowel syndrome with diarrhea (3) Chronic back pain greater than 3 months duration Priority: Secondary Status: Chronic Comments: She has a chronic history of back pain. I restarted her Lidoderm patch and Lyrica and she states that has been helpful. We will continue the same. (4) Diabetes mellitus type 2, diet-controlled Priority: Secondary Status: Chronic Comments: Her sugars have been a bit elevated with the IV steroids, there are now improving. She did not need extra coverage. (5) GERD (gastroesophageal reflux disease) Priority: Secondary Status: Chronic Qualifiers: Esophagitis presence: esophagitis presence not specified Qualified Code(s) : K21.9 - Gastro-esophageal reflux disease without esophagitis (6) Hypertension Priority: Secondary Status: Chronic Comments: Her blood pressure is under good control currently, no change in her medication. Qualifiers: Hypertension type: essential hypertension Qualified Code(s): I10 - Essential (primary) hypertension (7) Morbid obesity with BMI of 40.0-44.9, adult Priority: Secondary Status: Acute (8) DVT prophylaxis Priority: Secondary Status: Acute - Discharge Medications Home Medications: Aspirin 325 mg PO DAILY 03/31/15 [History] Buspirone [Buspar] 5 mg PO TID 03/31/15 [History] Dicyclomine [Bentyl] 10 mg PO QID 03/31/15 [History] Docusate [Colace] 100 mg PO DAILY PRN 03/31/15 [History] Cholestyramine/Aspartame [Cholestyramine Light Packet] 4 gm PO DAILY 11/02/15 [ History] Ondansetron HCl [Zofran] 4 mg SL Q4HR PRN 11/02/15 [History] Pregabalin [Lyrica] 150 mg PO BID 11/02/15 [History] Acetaminophen [8 Hour] 650 mg PO Q6HR PRN 05/14/16 [History] Esomeprazole Magnesium [Nexium] 40 mg PO DAILY 05/14/16 [History] Lidocaine Patch [Lidoderm 5% patch] 1 each TP DAILY 05/14/16 [History] Losartan Potassium [Cozaar] 100 mg PO DAILY 05/14/16 [History] Metoprolol XL (24 HR) Succ [Toprol Xl] 25 mg PO DAILY 05/14/16 [History] Albuterol Neb [Proventil Neb] 2.5 mg IH Q2HR PRN 07/17/16 [History] Furosemide [Lasix] 80 mg PO DAILY 07/17/16 [History] HYDROcodone/Acet 10/325 mg [Sachse 10-325 mg] 1 tab PO BID PRN 07/17/16 [History] Potassium Chloride [Klor-Con 10] 10 meq PO DAILY 07/17/16 [History] Albuterol Neb [Proventil Neb] 2.5 mg IH Q2H PRN #0 inhsol 07/22/16 [Rx] Cholestyramine 4 gm PO 0700 powd.pack 07/22/16 [Rx] Dextrose 50 % in Water (Syg) [Dextrose 50% (Syg)] 25 ml IVP AD PRN #0 syringe [Rx] Dextrose Gel [Gluctose] 15 gm PO ONCE PRN #0 gel..gram. 07/22/16 [Rx] Dextrose Gel [Gluctose] 30 gm PO ONCE PRN #0 gel..gram. 07/22/16 [Rx] Dicyclomine [Bentyl] 10 mg PO QID capsule 07/22/16 [Rx] Docusate [Colace] 100 mg PO BID PRN 07/22/16 [History] Docusate [Colace] 100 mg PO BID PRN #0 capsule 07/22/16 [Rx] Furosemide [Lasix] 80 mg PO DAILY tablet 07/22/16 [Rx] Glucagon, Human Recombinant [Glucagen] 1 mg IM ONCE PRN #0 vial 07/22/16 [Rx] GuaiFENesin/Dextromethorphan [Robitussin/Dm] 10 ml PO Q6HR PRN 07/22/16 [History ] GuaiFENesin/Dextromethorphan [Robitussin/Dm] 10 ml PO Q6HR PRN #0 udc 07/22/16 [ Rx] HYDROcodone/Acet 10/325 mg [Sachse 10-325 mg] 1 each PO BID PRN #0 tablet [Rx] Insulin LISPRO [HumaLOG] 0 units SQ HS vial 07/22/16 [Rx] Insulin LISPRO [HumaLOG] 0 units SQ TIDAC vial 07/22/16 [Rx] Ipratropium/Albuterol Neb [Duoneb] 3 ml IH Q6HR 07/22/16 [History] Ipratropium/Albuterol Neb [Duoneb] 3 ml IH [id number] inhsol 07/22/16 [Rx] Levofloxacin [Levaquin] 500 mg PO DAILY tablet 07/22/16 [Rx] Lidocaine Patch [Lidoderm 5% patch] 1 each TP DAILY adh..patch 07/22/16 [Rx] MethylPREDNISolone [Solu-MEDROL] 80 mg IVP DAILY vial 07/22/16 [Rx] MethylPREDNISolone [Solu-MEDROL] 80 mg IVP Q12HR vial 07/22/16 [Rx] MethylPREDNISolone [Solu-MEDROL] 80 mg IVP Q8HR vial 07/22/16 [Rx] Ondansetron ODT [Zofran ODT] 4 mg SL Q4HR PRN #0 tab.rapdis 07/22/16 [Rx] Potassium Chloride 10 meq PO DAILY tab.er.prt 07/22/16 [Rx] Pregabalin [Lyrica] 150 mg PO BID capsule 07/22/16 [Rx] Allergies/Adverse Reactions: Allergies Iodinated Contrast Media - Oral and [Iodinated Contrast Media - IV Dye] Allergy (Verified 07/17/16 07:27) Hives Sulfa (Sulfonamide Antibiotics) Allergy (Verified 07/17/16 07:27) Hives tetanus and diphtheria toxoids [Tetanus&Diphtheria Toxoid] Allergy (Verified 07:27) Hives Date of admission: 07/18/16 18:17 Primary care physician: Jona Back CNP Discharging clinician: Kael Liu Anticipated date of discharge: 07/22/16 - Patient Status Disposition: Transfer Hospital Swing Bed Condition: Fair Functional capacity at discharge: independent ambulation Overall status at discharge: patient is not back to baseline - Discharge Instructions Follow Up With: Jona Back CNP [Primary Care Provider] - - Diet and Activity Activity: increase activity as tolerated Diet: diabetic diet Interval History: Patient was seen earlier today. Please see the progress note. After decision made that the patient could not go home, swing bed evaluation was made. She is eligible for swing bed and will be transferred today. Hospital course: Ms. Guzman is a 56 year old female emitted with exacerbation of COPD. Please see the above diagnoses and hospital course. - Time Spent with Patient Total time spent providing and/or coordinating discharge services: - Constitutional Vitals: Temp Pulse Resp BP Pulse Ox 97.6 F 64 18 130/82 93 L 07/22/16 12:00 07/22/16 12:00 07/22/16 12:00 07/22/16 12:00 07/22/16 12:00 General appearance: Present: A&O X 3, no acute distress, obese - Respiratory Additional comments: Diminished but clear breath sounds. No respiratory distress. - Cardiovascular Cardiovascular exam: Present: RRR, +S1, +S2. Absent: systolic murmur - GI/Abdominal GI/Abdominal exam: Present: soft. Absent: tenderness - Extremities Exam Extremities exam: Absent: calf tenderness, pedal edema, tenderness, warm
== END 2016-07-22 15:18 | disposition other institution (70) ==
LOC: INPGRE 07:23 → EMEROOGRE 07:23 → INPGRE 09:19
PROVIDERS: ADMIT Family Medicine; ATTEND Family Medicine

== ENCOUNTER 2016-07-22 15:27 | Inpatient (IN) ==
[2016-07-22] MEDS ORDERED: Ipratropium/Albuterol Neb 3 ML IH SCH (16:00)
[2016-07-22] MEDS ORDERED: Albuterol 2.5 MG/3 ML NEBULIZER IH PRN (16:17)
[2016-07-22] MEDS ORDERED: Acetaminophen 325 MG TABLET PO PRN (16:17)
[2016-07-22] MEDS ORDERED: Ondansetron ODT 4 MG TAB.RAPDIS SL PRN (16:19)
[2016-07-22] MEDS ORDERED: Dextrose Gel 15 GM PO PRN ×2 (16:27)
[2016-07-22] MEDS ORDERED: *HR* Dextrose 50 % in Water (Syg) 50 ML SYRINGE IVP PRN (16:27)
[2016-07-22] MEDS ORDERED: D5% in Water 1,000 ML IV PRN (16:27)
[2016-07-22] MEDS: *HR* HYDROcodone/Acet 10/325 mg TABLET PO PRN ×2 (16:48→23:07)
[2016-07-22] MEDS: Insulin LISPRO 300 UNITS/3 ML VIAL SQ SCH (16:54)
[2016-07-22] MEDS: Pregabalin 75 MG CAPSULE PO SCH (21:46)
[2016-07-22] MEDS: Ipratropium/Albuterol Neb 3 ML IH SCH (21:46)
[2016-07-23] MEDS: Ipratropium/Albuterol Neb 3 ML IH SCH ×2 (04:59→09:55)
[2016-07-23] MEDS: *HR* HYDROcodone/Acet 10/325 mg TABLET PO PRN (05:08)
[2016-07-23 06:31] LABS: Basophils % 0.1 %; Eosinophils % 0.1 %; Hematocrit 42.5 % (35.3-44.9); Hemoglobin 13.2 g/dL (11.5-15.4); Immature Granulocytes % 1.3 % (0-4); Lymphocytes # 2.5 K/mcL (0.6-4.6); Lymphocytes % 29.4 %; Mean Corpuscular HGB Conc 31.1 g/dL (31.6-35.5); Mean Corpuscular Hemoglobin 25.4 pg (28.0-33.3); Mean Corpuscular Volume 81.7 fL (83.0-100.0); Mean Platelet Volume 10.2 fL (9.4-12.4); Monocytes # 0.6 K/mcL (0.0-1.3); Monocytes % 6.7 %; Neutrophils # 5.4 K/mcL (1.6-8.9); Platelet Count 141 K/mcL (140-400); Red Cell Distribution Width 15.5 % (11.5-14.5); Segmented Neutrophils % 62.4 %
[2016-07-23 06:33] LABS: INR 1.1; Prothrombin Time 12.4 Seconds (9.4-12.1)
[2016-07-23] MEDS ORDERED: *HR* Enoxaparin 40 MG/0.4 ML SYRINGE SQ SCH (07:00)
[2016-07-23] MEDS ORDERED: Cholestyramine 4 GM POWD.PACK PO SCH (07:00)
[2016-07-23] MEDS ORDERED: Aspirin 325 MG TABLET PO SCH (09:00)
[2016-07-23] MEDS ORDERED: Metoprolol XL (24 HR) Succ 25 MG TAB.ER.24H PO SCH (09:00)
[2016-07-23] MEDS ORDERED: Furosemide 40 MG TABLET PO SCH (09:00)
--- NOTE | 2016-07-23 09:11 | Discharge Summary ---
Date of Encounter: 07/23/16 Time of Encounter: 08:20 - Discharge Diagnosis (1) Acute exacerbation of chronic obstructive airways disease Priority: Primary Status: Acute Comments: she presented from home by squad for acute sob. she was admitted for hypoxia that initially required 4 l to keep her sats up. she was placed on duonebs. solumedrol, oxygen. eventually she was weaned down to 1 liter but she could not ambulate in the [place] without getting winded and needing to be wheeled back to her room. she will be sent home on oxygen and prednisone and nebs. she was d/c home in a stable condition (2) DVT prophylaxis Priority: Secondary Status: Acute Comments: lovenox (3) Hyperlipidemia Priority: Secondary Status: Acute Comments: stable on home medication Qualifiers: Hyperlipidemia type: mixed hyperlipidemia Qualified Code(s): E78.2 - Mixed hyperlipidemia (4) IBS (irritable bowel syndrome) Priority: Secondary Status: Acute Comments: she often has diarrhea but was more constipated here. her home medications were continued Qualifiers: Irritable bowel syndrome type: with diarrhea Qualified Code(s): K58.0 - Irritable bowel syndrome with diarrhea (5) Chronic back pain greater than 3 months duration Priority: Secondary Status: Chronic Comments: her home medication except the lidocaine patch were continued (6) Depression Priority: Secondary Status: Chronic Comments: stable on home medication Qualifiers: Depression Type: dysthymia Qualified Code(s): F34.1 - Dysthymic disorder (7) Diabetes mellitus type 2, diet-controlled Priority: Secondary Status: Chronic Comments: her hga1c was in range. she did get ssi here with some elevated sugars with the steroids will have her watch her diet as an outpt (8) GERD (gastroesophageal reflux disease) Priority: Secondary Status: Chronic Comments: she was on her ppi Qualifiers: Esophagitis presence: esophagitis presence not specified Qualified Code(s) : K21.9 - Gastro-esophageal reflux disease without esophagitis (9) Hypertension Priority: Secondary Status: Chronic Comments: stable on her home medications. occ it did get elevated Qualifiers: Hypertension type: essential hypertension Qualified Code(s): I10 - Essential (primary) hypertension (10) Sarcoidosis of lung Priority: Secondary Status: Chronic - Discharge Medications Prescriptions: PredniSONE [Deltasone] 20 mg PO DAILY #26 tablet Home Medications: Aspirin 325 mg PO DAILY 03/31/15 [History] Buspirone [Buspar] 5 mg PO TID 03/31/15 [History] Dicyclomine [Bentyl] 10 mg PO QID 03/31/15 [History] Docusate [Colace] 100 mg PO DAILY PRN 03/31/15 [History] Cholestyramine/Aspartame [Cholestyramine Light Packet] 4 gm PO DAILY 11/02/15 [ History] Ondansetron HCl [Zofran] 4 mg SL Q4HR PRN 11/02/15 [History] Pregabalin [Lyrica] 150 mg PO BID 11/02/15 [History] Acetaminophen [8 Hour] 650 mg PO Q6HR PRN 05/14/16 [History] Esomeprazole Magnesium [Nexium] 40 mg PO DAILY 05/14/16 [History] Lidocaine Patch [Lidoderm 5% patch] 1 each TP DAILY 05/14/16 [History] Losartan Potassium [Cozaar] 100 mg PO DAILY 05/14/16 [History] Metoprolol XL (24 HR) Succ [Toprol Xl] 25 mg PO DAILY 05/14/16 [History] Albuterol Neb [Proventil Neb] 2.5 mg IH Q2HR PRN 07/17/16 [History] Furosemide [Lasix] 80 mg PO DAILY 07/17/16 [History] HYDROcodone/Acet 10/325 mg [[place] 10-325 mg] 1 tab PO BID PRN 07/17/16 [History] Potassium Chloride [Klor-Con 10] 10 meq PO DAILY 07/17/16 [History] Albuterol Neb [Proventil Neb] 2.5 mg IH Q2H PRN #0 inhsol 07/22/16 [Rx] Cholestyramine 4 gm PO 0700 powd.pack 07/22/16 [Rx] Dicyclomine [Bentyl] 10 mg PO QID capsule 07/22/16 [Rx] Docusate [Colace] 100 mg PO BID PRN 07/22/16 [History] Docusate [Colace] 100 mg PO BID PRN #0 capsule 07/22/16 [Rx] Furosemide [Lasix] 80 mg PO DAILY tablet 07/22/16 [Rx] HYDROcodone/Acet 10/325 mg [[place] 10-325 mg] 1 each PO BID PRN #0 tablet [Rx] Ipratropium/Albuterol Neb [Duoneb] 3 ml IH Q6HR 07/22/16 [History] Ipratropium/Albuterol Neb [Duoneb] 3 ml IH [id number] inhsol 07/22/16 [Rx] Lidocaine Patch [Lidoderm 5% patch] 1 each TP DAILY adh..patch 07/22/16 [Rx] Ondansetron ODT [Zofran ODT] 4 mg SL Q4HR PRN #0 tab.rapdis 07/22/16 [Rx] Potassium Chloride 10 meq PO DAILY tab.er.prt 07/22/16 [Rx] Pregabalin [Lyrica] 150 mg PO BID capsule 07/22/16 [Rx] Ipratropium/Albuterol Neb [Duoneb] 3 ml IH [id number] inhsol 07/23/16 [Rx] PredniSONE [Deltasone] 20 mg PO DAILY #26 tablet 07/23/16 [Rx] Allergies/Adverse Reactions: Allergies Iodinated Contrast Media - Oral and [Iodinated Contrast Media - IV Dye] Allergy (Verified 07/17/16 07:27) Hives Sulfa (Sulfonamide Antibiotics) Allergy (Verified 07/17/16 07:27) Hives tetanus and diphtheria toxoids [Tetanus&Diphtheria Toxoid] Allergy (Verified 07:27) Hives Date of admission: 07/22/16 15:32 Primary care physician: Jona Back CNP Anticipated date of discharge: 07/23/16 - Patient Status Disposition: Home, Self-Care Condition: Good Functional capacity at discharge: independent ambulation Overall status at discharge: patient is progressing back to baseline - Discharge Instructions Instructions: Pneumonia (DC) Follow Up With: Jona Back CNP [Primary Care Provider] - 07/31/16 1:30 pm - Diet and Activity Activity: increase activity as tolerated, wear oxygen at all times Diet: diabetic diet, low fat, low cholesterol, low salt diet Interval History: she presented from home with sob. she was hypoxic in the ER needing 4 l to maintain her oxygen sat. she was given solumedrol, nebs, oxygen and levaquin after a week were still not able to get her off oxygen but she was down to 1 l. she was sent home with the oxygen. she was stable. she did have some elevated sugars with the soulumedrol that did require ssi. i will not send her home on medication for as her hga1c was in range. she is too watch her diet and be active. her htn, ibs depression were stable on her home medication for the stay Hospital course: Ms. Guzman is a 56 year old female - Time Spent with Patient Total time spent providing and/or coordinating discharge services: - Constitutional Vitals: Temp Pulse Resp BP Pulse Ox 97.2 F L 62 16 155/70 94 L 07/23/16 04:00 07/23/16 04:00 07/23/16 04:00 07/23/16 04:00 07/23/16 04:00 General appearance: Present: A&O X 3, no acute distress - Head Head exam: Present: atraumatic, normocephalic - Respiratory Respiratory exam: Present: CTAB - Cardiovascular Cardiovascular exam: Present: RRR, +S1, +S2 - GI/Abdominal GI/Abdominal exam: Present: normal bowel sounds, soft, no peritoneal signs. Absent: guarding, rebound, tenderness - Extremities Exam Extremities exam: Present: normal capillary refill, warm. Absent: pedal edema - Skin Skin exam: Present: dry, warm. Absent: rash
[2016-07-23] MEDS: Pregabalin 75 MG CAPSULE PO SCH (09:54)
[2016-07-23] MEDS: Insulin LISPRO 300 UNITS/3 ML VIAL SQ SCH ×2 (09:55→12:19)
[2016-07-23 12:02] VITALS: BP 136/91
== END 2016-07-23 16:30 | disposition home or self-care (01) | DRG 948 ==
LOC: INPGRE 15:32
PROVIDERS: ADMIT Family Medicine; ATTEND Family Medicine

== ENCOUNTER 2018-03-26 03:38 | Inpatient (IN) ==
[2018-03-26] MEDS ORDERED: 0.9 % Sodium Chloride 1,000 ML IVC ONE (03:55)
[2018-03-26] MEDS ORDERED: Ipratropium/Albuterol Neb 3 ML IH ONE (03:55)
[2018-03-26] MEDS ORDERED: methylPREDNISolone 125 MG/2 ML VIAL IVP ONE (03:55)
[2018-03-26] MEDS ORDERED: Ketorolac 30 MG/ML VIAL IVP ONE (03:56)
--- NOTE | 2018-03-26 04:00 | Emergency Department Note ---
Disposition Clinical Impression: COPD with exacerbation Chest pain Qualifiers: Chest pain type: unspecified Qualified Code(s): R07.9 - Chest pain, unspecified Disposition: Admitted As Inpatient Condition: Fair SOB HPI - General Chief Complaint: ED Shortness of Breath/Dyspnea Stated Complaint: sob Source: patient, EMS Mode of arrival: EMS Limitations: no limitations Nursing Notes Reviewed: Yes Vital Signs Reviewed: Yes - History of Present Illness Patient presents to the ED via EMS complaining of chest pain, nausea, vomiting and shortness of breath. She states the chest pain and dyspnea started approximately 1 hour prior to arrival when she was getting ready for bed. She describes her pain as substernal in location and states it radiates to her left arm. She reports that it is a 10 out of 10. She also reports feeling short of breath and wheezing. She is nauseous and has had 4 episodes of emesis. She reports chills and diarrhea as well as a cold with productive cough and congestion. She was in the ER 2 days ago for nausea and vomiting and crampy abdominal pain for 3 days and was diagnosed with gastroenteritis. She was prescribed Zofran which she has been taking without relief. Regarding her shortness of breath patient has a history of COPD, asthma and sarcoidosis. She has been on home oxygen at 2 L/m for 3 years. As for her chest pain she states that she did have an episode of similar pain a year ago. She was admitted to the hospital and reports a heart catheterization that was normal and did not require any stent placement. She has never had a heart attack. They did diagnose her CHF at that time as well as angina. Per EMS patient had diffuse wheezing and she was started on a neb treatment in route to the ED. She was also given 325 mg of aspirin. Patient took 2 nitroglycerin at home before EMS arrival with no change in her pain. She denies any leg swelling. No numbness, tingling or weakness. - Related Data Home Medications Medication Instructions Recorded Confirmed Buspirone [Buspar] 5 mg PO BID 03/31/15 03/26/18 Esomeprazole Magnesium [Nexium] 40 mg PO BID 05/14/16 03/26/18 Potassium Chloride [Klor-Con 10] 10 meq PO BID 07/17/16 03/26/18 Isosorbide MONOnitrate (24 HR) 15 mg PO DAILY 08/21/16 03/26/18 [Imdur] Losartan Potassium [Cozaar] 50 mg PO DAILY 08/21/16 03/26/18 Sertraline [Zoloft] 100 mg PO BID 08/21/16 03/26/18 Simvastatin [Zocor] 10 mg PO HS 08/21/16 03/26/18 Tizanidine HCl 4 mg PO TID PRN 08/21/16 03/26/18 Albuterol Neb [Proventil Neb] 2.5 mg IH Q4H PRN 10/29/16 03/26/18 Oxygen 2 l NS AD 10/29/16 03/26/18 HYDROcodone/Acet 10/325 mg [[place] 1 tab PO BID PRN 07/25/17 03/26/18 10-325 mg] Dicyclomine [Bentyl] 10 mg PO BID 10/01/17 03/26/18 Docusate Sodium [Dok] 100 mg PO BID PRN 10/01/17 03/26/18 Budesonide/Formoterol 160/4.5 2 puff IH BIDR 01/20/18 03/26/18 [Symbicort 160/4.5] Nitroglycerin [Nitrostat] 0.4 mg SL PRN PRN 01/20/18 03/26/18 Albuterol Sulfate [Albuterol 2 puff IH Q4H PRN 02/05/18 03/26/18 Inhaler] Bumetanide [Bumex] 0.5 mg PO DAILY 02/05/18 03/26/18 Ipratropium/Albuterol Neb [Duoneb] 3 ml IH QID 02/05/18 03/26/18 Metoprolol Succinate [Toprol Xl] 25 mg PO DAILY 02/05/18 03/26/18 Multivitamin/Iron/Folic Acid 1 each PO BID 02/05/18 03/26/18 [Cerovite Advanced Form Tab] Previous Rx's Medication Instructions Recorded Pregabalin [Lyrica] 150 mg PO BID capsule 07/22/16 Allergies Allergy/AdvReac Type Severity Reaction Status Date / Time Iodinated Contrast- Oral and Allergy Hives Verified 03/26/18 03:46 IV Dye [Iodinated Contrast Media - IV Dye] Sulfa (Sulfonamide Allergy Hives Verified 03/26/18 03:46 Antibiotics) tetanus and diphtheria Allergy Hives Verified 03/26/18 03:46 toxoids [Tetanus&Diphtheria Toxoid] Constitutional: Reports: chills. Denies: fever, weakness, weight change Eyes: Denies: eye pain, eye discharge, vision change ENT ED: Reports: congestion. Denies: ear pain, throat pain, dental pain, hearing loss, epistaxis, dysphagia Cardiovascular: Reports: chest pain. Denies: palpitations, dyspnea on exertion , edema, syncope Respiratory: Reports: cough, dyspnea, wheezes. Denies: hemoptysis, stridor Gastrointestinal: Reports: abdominal pain, nausea, vomiting, diarrhea Genitourinary: Denies: dysuria, frequency, hematuria, discharge Musculoskeletal: Denies: back pain, neck pain, arthralgia, myalgia Integumentary: Denies: rash, abrasion, lesions Neurological: Denies: headache, weakness, numbness, paresthesias, confusion, abnormal gait, vertigo Psychiatric: Denies: anxiety, depression, suicidal thoughts, homicidal thoughts , auditory hallucinations, visual hallucinations Endocrine: Denies: fatigue Hematological/Lymphatic: Denies: easy bleeding, easy bruising Allergic/Immunologic: Denies: facial swelling, urticaria Past Medical History - Past Medical History Medical history: Reports: arthritis, asthma, COPD, CVA, diabetes, fibromyalgia, GERD, glaucoma, hyperlipidemia, hypertension, renal disease, thyroid disease, other Surgical history: Reports: cholecystectomy (1996), knee replacement (right 2013 , left 08/23/14), orthopedic, other (09/21/15 left knee arthroscopymedial meniscus) , ZHENG/BSO (1994), other (left glaucoma 2010, dental extraction, eye lid 2010, EGD 11/10/15, colonoscopy polyps 2006,2010, cath o stent 08/2016) Psychiatric history: Reports: anxiety, depression MANAGEMENT ADVISOR history: Reports: no MANAGEMENT ADVISOR history - Social History Smoking Status: Never smoker Smokeless Tobacco Status: No Alcohol use: Reports: none Drug use: Reports: none Physical Exam - General Limitations: no limitations General appearance: alert, in no apparent distress - Head Head exam: atraumatic, normocephalic, normal inspection - Eye Eye exam: Present: normal appearance, PERRL, EOMI - ENT ENT exam: normal exam, normal oropharynx, mucous membranes moist - Neck Neck exam: Present: normal inspection, full ROM, trachea midline - Chest Chest inspection: Present: normal inspection, symmetric chest wall rise, tenderness (over entire anterior chest wall) - Expanded Respiratory Exam Location: wheezes: Left, Right, Upper, Lower (scattered), rhonchi: Left, Right, Upper, Lower (scattered) - Cardiovascular Cardiovascular exam: Present: regular rate, normal rhythm, normal heart sounds - Abdominal Exam Abdominal exam: Present: soft, tenderness, normal bowel sounds. Absent: distention, guarding, rebound, rigidity Abdominal tenderness: Present: diffuse, mild - Extremities Exam Extremities exam: Present: normal inspection, full ROM. Absent: tenderness, pedal edema - Back Exam Back exam: Present: normal inspection, full ROM. Absent: tenderness, CVA tenderness (R), CVA tenderness (L) - Neurological Exam Neurological exam: Present: alert, oriented X3 - Psychiatric Psychiatric exam: Present: normal affect, normal mood - Skin Skin exam: Present: warm, dry, intact, normal color Course Course Narrative: Patient presents to the ED with chest pain, shortness of breath, abdominal pain , nausea and vomiting. GI symptoms been going on for a few days with the recent diagnosis of gastroenteritis. Chest pain or shortness of breath or new with history of COPD, CHF and sarcoidosis. On arrival patient is hypertensive but afebrile and nontoxic in appearance. She still has diffuse wheezing and rhonchi with no treatment progress. Will obtain EKG, chest x-ray and lab work. We will give an additional nebulizer treatment and steroids. We will give Toradol for pain. Symptoms may be related to her CHF, COPD, angina or possibility of pneumonia or other viral illness. Review of records shows that she had x-ray of the chest and abdomen when she was here 2 days ago for her GI symptoms which were unremarkable. Laboratory studies also did not show any acute abnormalities at that time. - Reevaluation(s) Reevaluation #1: On reassessment patient has improved aeration but is still wheezing. She states she does still feel short of breath and is still having discomfort in her chest. Will continue with an additional nebulizer treatment. She states her cold symptoms started 5 days ago at the same time as her GI symptoms. The chest pain and shortness of breath just started early this morning. States she gets sick like this typically once a year and it usually develops into pneumonia. She complains of feeling generally weak and achy as well. She has asked multiple times if she is going to need to stay in the hospital. Time: 04:37 Reevaluation #2: Chest discomfort and shortness of breath are improving. Patient still has scattered wheezing on exam. Chest x-ray does not show any pulmonary edema, pneumonia or other acute abnormalities. Laboratory studies showed no leukocytosis. Fluctuates a normal other than a mildly low potassium at 3.3, likely due to her vomiting. She just gave a urine sample and these results are not yet available. Given patient's overall clinical picture will check flu swab as another cause for her multiple symptoms. Time: 05:19 Reevaluation #3: Flu swab is negative. Urinalysis does show evidence of a possible UTI. Will start on Levaquin to cover both UTI and her COPD exacerbation. Given her chest pain and shortness of breath I have low suspicion for cardiac pathology but at the very least patient is having a COPD exacerbation. I feel that she would benefit from a brief hospitalization and continued treatment. Discussed this plan with the patient and she is in agreement. Will contact Dr. Liu. Time: 06:02 Additional Reevaluation(s): 634 - I spoke to Dr. Liu who has agreed to accept the patient. Vital Signs Temperature 98.7 F 03/26/18 03:40 Pulse Rate 75 03/26/18 03:40 Respiratory Rate 24 03/26/18 03:40 Blood Pressure 160/96 03/26/18 03:40 O2 Sat by Pulse Oximetry 99 03/26/18 03:40 Temperature 98.7 F 03/26/18 03:40 Pulse Rate 80 03/26/18 05:57 Respiratory Rate 24 03/26/18 03:40 Blood Pressure 157/61 03/26/18 05:57 O2 Sat by Pulse Oximetry 92 03/26/18 05:57 Oxygen Delivery Oxygen Delivery Nasal Cannula Shortness of Breath/Dyspnea - Differential Diagnosis Likely: acute exacerbation of chronic obstructive airways disease, congestive heart failure, pneumonia, asthma with exacerbation - Medical Records Medical records reviewed: Yes I reviewed the patient's medical records. - Lab Data Lab results reviewed: Yes I reviewed the patient's lab results. Result diagrams: 03/26/18 04:20 03/26/18 04:20 Lab Results 03/26/18 03/26/18 03/26/18 Range/Units 04:20 04:20 04:20 WBC 10.5 (4.3-11.1) K/mcL RBC 5.21 H (3.82-4.97) M/mcL Hgb 13.8 (11.5-15.4) g/dL Hct 43.1 (35.3-44.9) % MCV 82.7 L (83.0-100.0) fL MCH 26.5 L (28.0-33.3) pg MCHC 32.0 (31.6-35.5) g/dL RDW 15.0 H (11.5-14.5) % Plt Count 153 (140-400) K/mcL MPV 10.3 (9.4-12.4) fL Immature Gran % 0.5 (0-4) % Seg Neutrophils % 73.0 % Lymphocytes % 18.7 % Monocytes % 7.3 % Eosinophils % 0.3 % Basophils % 0.2 % Neutrophils # 7.6 (1.6-8.9) K/mcL Lymphocytes # 2.0 (0.6-4.6) K/mcL Monocytes # 0.8 (0.0-1.3) K/mcL Eosinophils # 0.0 (0.0-0.6) K/mcL Basophils # 0.0 (0.0-0.2) K/mcL Sodium 141 (136-145) mEq/L Potassium 3.3 L (3.5-5.1) mEq/L Chloride 106 (98-107) mEq/L Carbon Dioxide 27 (23-29) mEq/L BUN 22 H (6-20) mg/dL Creatinine 0.88 (0.60-1.20) mg/dL Est GFR ( Amer) > 60 (> 60) Est GFR (Non-Af Amer) > 60 (> 60) BUN/Creatinine Ratio 25 (6-26) Glucose 118 H (70-105) mg/dL Calculated Osmolality 296 (280-300) Lactic Acid 1.5 (0.5-2.2) mmol/L Calcium 9.0 (8.6-10.3) mg/dL Total Bilirubin (0.3-1.0) mg/dL Direct Bilirubin (0.0-0.2) mg/dL Indirect Bilirubin (0.0-1.2) mg/dL AST (13-39) Units/L ALT (7-52) Units/L Alkaline Phosphatase (34-104) Units/L Troponin I < 0.03 (< 0.04) ng/mL B-Natriuretic Peptide (Less than 100) pg/mL Serum Total Protein (6.4-8.9) g/dL Albumin (3.5-5.7) g/dL Globulin (2.4-3.5) g/dL Albumin/Globulin Ratio (1.1-2.2) Urine Color (Yellow) Urine Clarity (Clear) Urine pH (5.0-8.0) pH Units Ur Specific [place] (1.010-1.025) Urine Protein (Neg-Trace) mg/dL Urine Glucose (UA) (Normal) mg/dL Urine Ketones (Negative) mg/dL Urine Blood (Negative) Urine Nitrite (Negative) Urine Bilirubin (Negative) Urine Urobilinogen (Normal) mg/dL Ur Leukocyte Esterase (Negative) Urine Microscopic RBC (0-3) per hpf Urine Microscopic WBC (0-3) per hpf Ur Squamous Epith Cells (None-Few) per lpf Urine Bacteria (None-Few) per hpf Ur Culture Indicated? (NO) 03/26/18 03/26/18 03/26/18 Range/Units 04:20 04:20 05:05 WBC (4.3-11.1) K/mcL RBC (3.82-4.97) M/mcL Hgb (11.5-15.4) g/dL Hct (35.3-44.9) % MCV (83.0-100.0) fL MCH (28.0-33.3) pg MCHC (31.6-35.5) g/dL RDW (11.5-14.5) % Plt Count (140-400) K/mcL MPV (9.4-12.4) fL Immature Gran % (0-4) % Seg Neutrophils % % Lymphocytes % % Monocytes % % Eosinophils % % Basophils % % Neutrophils # (1.6-8.9) K/mcL Lymphocytes # (0.6-4.6) K/mcL Monocytes # (0.0-1.3) K/mcL Eosinophils # (0.0-0.6) K/mcL Basophils # (0.0-0.2) K/mcL Sodium (136-145) mEq/L Potassium (3.5-5.1) mEq/L Chloride (98-107) mEq/L Carbon Dioxide (23-29) mEq/L BUN (6-20) mg/dL Creatinine (0.60-1.20) mg/dL Est GFR ( Amer) (> 60) Est GFR (Non-Af Amer) (> 60) BUN/Creatinine Ratio (6-26) Glucose (70-105) mg/dL Calculated Osmolality (280-300) Lactic Acid (0.5-2.2) mmol/L Calcium (8.6-10.3) mg/dL Total Bilirubin 0.2 L (0.3-1.0) mg/dL Direct Bilirubin 0.0 (0.0-0.2) mg/dL Indirect Bilirubin 0.2 (0.0-1.2) mg/dL AST 11 L (13-39) Units/L ALT 13 (7-52) Units/L Alkaline Phosphatase 82 (34-104) Units/L Troponin I (< 0.04) ng/mL B-Natriuretic Peptide 68 (Less than 100) pg/mL Serum Total Protein 6.8 (6.4-8.9) g/dL Albumin 4.0 (3.5-5.7) g/dL Globulin 2.8 (2.4-3.5) g/dL Albumin/Globulin Ratio 1.4 (1.1-2.2) Urine Color Yellow (Yellow) Urine Clarity Slightly Cloudy A (Clear) Urine pH 6.0 (5.0-8.0) pH Units Ur Specific [place] 1.015 (1.010-1.025) Urine Protein Negative (Neg-Trace) mg/dL Urine Glucose (UA) Normal (Normal) mg/dL Urine Ketones Negative (Negative) mg/dL Urine Blood Small H (Negative) Urine Nitrite Negative (Negative) Urine Bilirubin Negative (Negative) Urine Urobilinogen Normal (Normal) mg/dL Ur Leukocyte Esterase Trace H (Negative) Urine Microscopic RBC 3-5 H (0-3) per hpf Urine Microscopic WBC 0-3 (0-3) per hpf Ur Squamous Epith Cells Few (None-Few) per lpf Urine Bacteria Few (None-Few) per hpf Ur Culture Indicated? YES A (NO) - Radiology Data Radiology results reviewed: Yes I reviewed the patient's radiology results. ITS Impressions Chest X-Ray 03/26/18 03:55 IMPRESSION: No acute disease. D/ / Edwin Neely MD / Edwin Neely MD Interpreting Provider: Edwin Neely MD - EKG Data EKG attestation: Yes I reviewed and interpreted this EKG. EKG shows normal: Reports: sinus rhythm Rate: Reports: normal Rhythm: Reports: NSR [place]/QRS: Reports: normal Interpretation: Reports: no acute changes, normal EKG
[2018-03-26 04:30] LABS: Basophils % 0.2 %; Eosinophils % 0.3 %; Hematocrit 43.1 % (35.3-44.9); Hemoglobin 13.8 g/dL (11.5-15.4); Immature Granulocytes % 0.5 % (0-4); Lymphocytes % 18.7 %; Mean Corpuscular Hemoglobin 26.5 pg (28.0-33.3); Mean Corpuscular Volume 82.7 fL (83.0-100.0); Mean Platelet Volume 10.3 fL (9.4-12.4); Monocytes # 0.8 K/mcL (0.0-1.3); Monocytes % 7.3 %; Neutrophils # 7.6 K/mcL (1.6-8.9); Platelet Count 153 K/mcL (140-400); Red Blood Count 5.21 M/mcL (3.82-4.97)
[2018-03-26 04:42] LABS: Troponin I < 0.03 ng/mL (< 0.04)
[2018-03-26 04:43] LABS: BUN/Creatinine Ratio 25 (6-26); Blood Urea Nitrogen 22 mg/dL (6-20); Carbon Dioxide 27 mEq/L (23-29); Chloride 106 mEq/L (98-107); Glucose 118 mg/dL (70-105); Osmolality,Calculated 296 (280-300); Potassium 3.3 mEq/L (3.5-5.1); Sodium 141 mEq/L (136-145); eGFR For Non-African Americans > 60 (> 60)
[2018-03-26 04:44] LABS: Albumin/Globulin Ratio 1.4 (1.1-2.2); Bilirubin,Indirect 0.2 mg/dL (0.0-1.2); Bilirubin,Total 0.2 mg/dL (0.3-1.0); Globulin 2.8 g/dL (2.4-3.5); Total Protein 6.8 g/dL (6.4-8.9)
[2018-03-26 05:10] LABS: Bilirubin,Urine Negative (Negative); Blood,Urine Small (Negative); Clarity,Urine Slightly Cloudy (Clear); Glucose,Urine (UA) Normal (Normal); Ketones,Urine Negative (Negative); Leukocyte Esterase,Urine Trace (Negative); Nitrite,Urine Negative (Negative); Protein,Urine Negative (Neg-Trace); Specific Gravity,Urine 1.015 (1.010-1.025); Urobilinogen,Urine Normal (Normal)
[2018-03-26 05:11] LABS: Color,Urine Yellow (Yellow)
[2018-03-26 05:12] LABS: Bacteria,Urine Few per hpf (None-Few); Squamous Epithelial Cell,Urine Few per lpf (None-Few); WBC,Urine 0-3 per hpf (0-3)
[2018-03-26] MEDS ORDERED: Ondansetron 4 MG/2 ML VIAL IVP ONE (05:20)
[2018-03-26] MEDS ORDERED: Levofloxacin 750 MG/150 ML 750 MG/150 ML BAG IVPB ONE (05:22)
[2018-03-26] MEDS ORDERED: *HR* HYDROcodone/Acet 10/325 mg TABLET PO ONE (05:55)
[2018-03-26] MEDS ORDERED: Naloxone 0.4 MG/ML INJ IVP PRN ×2 (06:37→07:28)
[2018-03-26] MEDS ORDERED: *HR* Dextrose 50 % in Water (Syg) 50 ML SYRINGE IVP PRN ×2 (06:42→07:28)
[2018-03-26] MEDS ORDERED: D5% in Water 1,000 ML IVC PRN ×2 (06:42→07:28)
[2018-03-26] MEDS ORDERED: Dextrose Gel 15 GM/37.5 ML TUBE PO PRN ×4 (06:42→07:28)
[2018-03-26] MEDS ORDERED: Nitroglycerin 0.4 MG TAB.SUBL SL PRN (07:28)
[2018-03-26] MEDS ORDERED: Insulin LISPRO 300 UNITS/3 ML VIAL SQ SCH ×2 (07:30→21:00)
[2018-03-26] MEDS: Bumetanide 1 MG TABLET PO SCH (08:41)
[2018-03-26] MEDS: Pregabalin 75 MG CAPSULE PO SCH ×2 (08:41→19:59)
[2018-03-26] MEDS: Isosorbide MONOnitrate (24 HR) 30 MG TAB.ER.24H PO SCH (08:42)
[2018-03-26] MEDS: *HR* HYDROcodone/Acet 10/325 mg TABLET PO PRN ×2 (08:42→16:57)
[2018-03-26] MEDS: Metoprolol XL (24 HR) Succ 25 MG TAB.ER.24H PO SCH (08:42)
[2018-03-26] MEDS: Multivit/Ca/Min/Fe/FA 1 TAB TABLET PO SCH ×2 (08:44→19:58)
[2018-03-26] MEDS: Insulin LISPRO 300 UNITS/3 ML VIAL SQ SCH ×4 (08:55→20:00)
--- NOTE | 2018-03-26 09:03 | Internal Med History&Physical ---
Date of Encounter: 03/28/18 Time of Encounter: 09:00 Assessment and Plan (1) Acute exacerbation of chronic obstructive airways disease Current visit: Yes Status: Acute Acute exacerbation of chronic oxygen dependent COPD and asthma. She failed treatment in the emergency room today. She was in the emergency room a few days ago with illness as well. I recommend that she be admitted to the hospital and have intravenous steroids, aggressive nebulizer treatment, oxygen per nasal cannula, bedside commode and supportive care. She should also avoid cigarette smoke exposure at home in the future. The present, do not feel that she has pneumonia. I suspect her "chest pain" with more respiratory than cardiac. The ER physician has ordered Levaquin for possible pulmonary infection in addition to possible UTI. We will continue that for now. Having been in the ER twice this week, now acute exacerbation of COPD requiring IV fluids and steroids and aggressive treatment, I suspect she is going to be here at least 2 midnights or more. I recommended that she be admitted. (2) Chest pain Current visit: Yes Status: Acute Left-sided stabbing chest pain and left arm pain. Currently she appears to be quite comfortable. I suspect this was more ulnar in chest wall than cardiac. Troponin, EKG, monitor creatinine been reassuring. She has had a known 30 normal heart catheterization just a year ago. I need to review her office records regarding tongue lining stitcher stating that she has history of congestive heart failure and using Bumex. Her last echocardiogram showed 60-65% ejection fraction. Qualifiers: Chest pain type: unspecified Qualified Code(s): R07.9 - Chest pain, unspecified (3) Gastroenteritis Current visit: Yes Status: Acute She has been in the ER twice now with acute gastroenteritis nausea and vomiting. Currently things are quieted down and I suspect at the tail end of that problem. She has started to eat some food today. I believe she would benefit from continued IV fluids. (4) Diabetes mellitus type 2, diet-controlled Current visit: No Status: Chronic Currently diet controlled diabetes. We will do diabetic diet. Anticipate sugars to go up with IV steroids but will follow. Her last glycohemoglobin was normal. (5) Chronic back pain greater than 3 months duration Current visit: No Status: Chronic Chronic lumbar disc disease and myofascial pain. Followed by Dr. Spaulding. We will continue her current regimen of [place] 10/325 twice a day and Lyrica twice a day. (6) Hypertension Current visit: No Status: Chronic Chronic hypertension. On admission her pressures were elevated, now improving. We will follow. Continue her current medical regimen. Qualifiers: Hypertension type: essential hypertension Qualified Code(s): I10 - Essential (primary) hypertension (7) Depression Current visit: No Status: Chronic History depression, recently exacerbated with the of her mother. She is tearful today. We will continue with her antidepressant. She is not suicidal. 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 No specific intervention at this point. (9) Hypokalemia Current visit: Yes Status: Acute Mild hypokalemia likely due to her acute gastroenteritis. I think she would benefit from IV fluids including potassium. (10) DVT prophylaxis Current visit: Yes Status: Acute We will start Lovenox as she is at risk of DVT because of being at bed rest at home. Internal Medicine - H&P: HPI Chief complaint: I had chest pain and now shortness of breath Admitted From: Emergency Dept Plans for Post Hospital Care: Home History of present illness: Ms. Guzman is a 57 year old female with known history of multiple medical problems including oxygen dependent COPD, asthma, sarcoidosis, chronic lumbar degenerative disc disease was admitted from the emergency room with exacerbation of COPD. She first became ill last Saturday, 5 days ago with nausea and vomiting and diarrhea. I continued to the weekend. On Saturday she went to the emergency room and was treated for "acute gastroenteritis" and was given IV fluids and symptomatically she felt better. She took her Zofran last night. However 3:00 in the morning "it hit me" with stabbing left-sided chest pain. She took 2 nitroglycerin without relief and called the life squad. She has had pain down the left arm as well. She states she has had a fever 100.4 and has had chills. Last episode of vomiting was last night. She has had no more diarrhea since Saturday. In the emergency room she was evaluated and had diffuse wheezing that did not clear with 2 nebulizer treatments. Her cardiac workup was negative including EKG, troponin, chest x-ray etc. Since admission she states her biggest symptom is being wheezing and shortness of breath. She states she gets very dyspneic and weak walking a few feet to the bathroom with assistance. She does not smoke, but her smokes 2-3 packs of cigarettes per day and he smokes indoors. She has constant exposure to that. She had a cardiac catheter August 2016 which showed minimal disease and not needing intervention. However, she says that her tongue lining stitcher has been treating her for CHF and she is on a diuretic. Past Med Surg Social Fam HX - Past Medical History Medical history: arthritis, asthma, COPD, diabetes (Diet controlled diabetes), fibromyalgia, GERD, glaucoma, hyperlipidemia, hypertension, renal disease, thyroid disease, other (Sarcoidosis affecting eyes and lungs. 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 Chronic back pain. Glaucoma. IBS, Psychiatric history: anxiety, depression - Past Surgical History Surgical History: cholecystectomy (1996), knee replacement (right 2013, left 08/23), orthopedic, other (09/21/15 left knee arthroscopymedial meniscus), ZHENG/BSO (1994), other (left glaucoma 2010, dental extraction, eye lid 2010, EGD 11/10/15 , colonoscopy polyps 2006,2010, cath o stent 08/2016) Additional surgical history: left eye surgery, dental extraction, coronary cath- no stents - Social History Smoking Status: Never smoker Smokeless Tobacco Status: No Alcohol use: none Drug use: none - Family History Brother Adopted: No Family Member Ethnicity: Non- Living Status: Still Living Cause of : in her 80s with cardiovascular and respiratory problems Hx Family Cardiac Disorders: Yes Hx Family Respiratory Disorders: Yes Hx Family Cancer: No Hx Family GI Disorders: No Hx Family Endocrine Disorder: Yes (dm2) Hx Family Neuromuscular Disorders: Yes (cva) Paternal Grandmother Living Status: Hx Family Cancer: Yes (eye) Maternal Grandfather Living Status: Hx Family Neuromuscular Disorders: Yes (cva) Mother Living Status: Hx Family Cardiac Disorders: Yes ("Heart problems", carotid artery disease) Hx Family Respiratory Disorders: Yes Hx Family GI Disorders: Yes (GERD) Father Adopted: No Living Status: Hx Family Cardiac Disorders: Yes (Some type of heart condition or CAD, CVA) Internal Medicine - H&P: Meds Buspirone [Buspar] 5 mg PO TID 03/31/15 [History] Esomeprazole Magnesium [Nexium] 40 mg PO HS 05/14/16 [History] Potassium Chloride [Klor-Con 10] 10 meq PO BID 07/17/16 [History] Pregabalin [Lyrica] 150 mg PO BID capsule 07/22/16 [Rx] Isosorbide MONOnitrate (24 HR) [Imdur] 15 mg PO DAILY 08/21/16 [History] Losartan Potassium [Cozaar] 50 mg PO DAILY 08/21/16 [History] Sertraline [Zoloft] 100 mg PO BID 08/21/16 [History] Simvastatin [Zocor] 10 mg PO HS 08/21/16 [History] Tizanidine HCl 4 mg PO TID PRN 08/21/16 [History] Albuterol Neb [Proventil Neb] 2.5 mg IH Q4H PRN 10/29/16 [History] Oxygen 2 l NS AD 10/29/16 [History] HYDROcodone/Acet 10/325 mg [[place] 10-325 mg] 1 tab PO BID PRN 07/25/17 [History] Dicyclomine [Bentyl] 10 mg PO TID 10/01/17 [History] Docusate Sodium [Dok] 100 mg PO BID PRN 10/01/17 [History] Budesonide/Formoterol 160/4.5 [Symbicort 160/4.5] 2 puff IH BIDR 01/20/18 [ History] Nitroglycerin [Nitrostat] 0.4 mg SL PRN PRN 01/20/18 [History] Albuterol Sulfate [Albuterol Inhaler] 2 puff IH Q4H PRN 02/05/18 [History] Bumetanide [Bumex] 0.5 mg PO DAILY 02/05/18 [History] Ipratropium/Albuterol Neb [Duoneb] 3 ml IH QID 02/05/18 [History] Metoprolol Succinate [Toprol Xl] 25 mg PO DAILY 02/05/18 [History] Multivitamin/Iron/Folic Acid [Cerovite Advanced Form Tab] 1 each PO DAILY [History] 3 Allergy/AdvReac Type Severity Reaction Status Date / Time Iodinated Contrast- Oral and Allergy Hives Verified 03/26/18 03:46 IV Dye [Iodinated Contrast Media - IV Dye] Sulfa (Sulfonamide Allergy Hives Verified 03/26/18 03:46 Antibiotics) tetanus and diphtheria Allergy Hives Verified 03/26/18 03:46 toxoids [Tetanus&Diphtheria Toxoid] - Constitutional Constitutional: fever(s) (Temperature up to 100.4), lethargy, malaise, weakness - EENT Eyes: no change in vision Ears: ear pain (Right-sided ear pain. No drainage) Nose, mouth and throat: sore throat, no neck mass, no neck pain, no sinus pain - Cardiovascular Cardiovascular ROS IM: as per HPI, chest pain, diaphoresis, dyspnea, dyspnea on exertion, no edema, no irregular heart rhythm, no palpitations, no syncope - Respiratory Respiratory: cough (Dry cough), dyspnea, dyspnea on exertion, wheezing, pain on inspiration, pain with cough, no hemoptysis, no chest congestion - Gastrointestinal Gastrointestinal: nausea, vomiting (Vomiting has subsided since last night), no hematemesis, no hematochezia - Genitourinary Genitourinary: dysuria, no hematuria - Musculoskeletal Musculoskeletal ROS IM: muscle weakness (Generalized muscle weakness, difficulties walking to and from the bathroom) Additional comments: Patient has a history of lumbar degenerative disc disease and myofascial pain. She is undergone injections as well as nerve ablation by Dr. Spaulding. She takes [place] 10/325 twice a day and Lyrica 150 mg twice a day per Nneka Parker. Currently the pain is localizing to the low back area. - Neurological Neurological ROS: weakness (Generalized weakness and difficulty walking.), no focal weakness, no frequent falls, no radicular pain - Psychiatric Psychiatric: depression (She is tearful as she remembers the of her mother here at the hospital a few months ago. She states she misses her mother greatly) - Constitutional Vitals: Temp Pulse Resp BP Pulse Ox 99.2 F 82 18 157/76 91 03/26/18 06:37 03/26/18 06:37 03/26/18 07:01 03/26/18 07:01 03/26/18 06:37 General appearance: Present: mild distress (She has mild hoarseness. She was dyspneic getting in and out of bed. She has perspiration noted throughout.), A& O X 3, morbidly obese, answers questions appropriately - ENT ENT exam: Present: normal oropharynx, TM's normal bilaterally - Neck Neck exam general surgery: Present: tenderness (Mildly tender in the anterior neck area without masses or meningeal signs). Absent: lymphadenopathy, thyromegaly - Respiratory Additional comments: Diffuse scattered wheezes in all lung islas and moderately tight. No air hunger. Able to speak in full sentences. A few scattered crackles heard throughout. - Cardiovascular Cardiovascular exam: Present: RRR, +S1, +S2, systolic murmur (1 to 2/6 systolic murmur heard best at the left sternal border) - GI/Abdominal Additional comments: Mild suprapubic tenderness. No guarding or rebound or rigidity. No obvious masses. No pulsatile masses. - Extremities Exam Extremities exam: Present: normal capillary refill. Absent: calf tenderness, mottling, pedal edema, tenderness - Back Exam Additional comments: Mild to moderate tenderness in the low lumbar area. - Neurological Exam Neurological exam: Present: oriented X3, no focal deficits, strengths equal and symetr throughout - Psychiatric Psychiatric exam: Present: depressed (She became tearful when talking about her mother). Absent: suicidal ideation - Skin Skin exam: Absent: rash, urticaria Internal Med - H&P Results - Labs CBC & Chem 7: 03/27/18 06:49 03/27/18 06:49 Labs: Labs have been reviewed. Mild hypokalemia. Minimal hyperglycemia. White blood cell count is not elevated. - Diagnostic Studies Chest x-ray Additional comments: Chest x-ray showed no focal infiltrate or signs of CHF. - VTE Reasons for not Prescribing Prophylaxis: Treatment not Indicated - Low risk for VTE
[2018-03-26] MEDS ORDERED: Ondansetron ODT 4 MG TAB.RAPDIS SL STA (11:00)
[2018-03-26] MEDS: 0.9 % Sodium Chloride w KCl 20 MEQ/1,000 ML MLS IVC SCH ×2 (11:33→23:06)
[2018-03-26] MEDS: Budesonide/Formoterol 160/4.5 1 PUFF INH IH SCH ×2 (11:36→19:59)
[2018-03-26] MEDS: Ipratropium/Albuterol Neb 3 ML IH SCH ×3 (11:37→23:40)
[2018-03-26] MEDS: methylPREDNISolone 125 MG/2 ML VIAL IVP SCH ×2 (16:55→23:40)
[2018-03-27] MEDS: *HR* Enoxaparin 40 MG/0.4 ML SYRINGE SQ SCH (04:41)
[2018-03-27] MEDS: *HR* HYDROcodone/Acet 10/325 mg TABLET PO PRN ×2 (04:41→20:55)
[2018-03-27] MEDS: Ipratropium/Albuterol Neb 3 ML IH SCH ×3 (04:41→16:22)
[2018-03-27 06:59] LABS: Basophils % 0.3 %; Hematocrit 38.9 % (35.3-44.9); Hemoglobin 12.5 g/dL (11.5-15.4); Immature Granulocytes % 1.7 % (0-4); Lymphocytes # 0.7 K/mcL (0.6-4.6); Lymphocytes % 9.1 %; Mean Corpuscular HGB Conc 32.1 g/dL (31.6-35.5); Mean Corpuscular Hemoglobin 26.7 pg (28.0-33.3); Mean Corpuscular Volume 82.9 fL (83.0-100.0); Mean Platelet Volume 10.3 fL (9.4-12.4); Monocytes # 0.2 K/mcL (0.0-1.3); Monocytes % 2.6 %; Neutrophils # 6.5 K/mcL (1.6-8.9); Platelet Count 143 K/mcL (140-400); Red Blood Count 4.69 M/mcL (3.82-4.97); Segmented Neutrophils % 86.3 %
[2018-03-27 07:24] LABS: BUN/Creatinine Ratio 20 (6-26); Blood Urea Nitrogen 16 mg/dL (6-20); Calcium 8.9 mg/dL (8.6-10.3); Carbon Dioxide 27 mEq/L (23-29); Chloride 107 mEq/L (98-107); Glucose 166 mg/dL (70-105); Osmolality,Calculated 293 (280-300); Potassium 4.2 mEq/L (3.5-5.1); Sodium 139 mEq/L (136-145); eGFR For Non-African Americans > 60 (> 60)
[2018-03-27] MEDS: Multivit/Ca/Min/Fe/FA 1 TAB TABLET PO SCH ×2 (09:28→20:55)
[2018-03-27] MEDS: Bumetanide 1 MG TABLET PO SCH (09:34)
[2018-03-27] MEDS: Pregabalin 75 MG CAPSULE PO SCH ×2 (09:35→20:54)
[2018-03-27] MEDS: Isosorbide MONOnitrate (24 HR) 30 MG TAB.ER.24H PO SCH (09:35)
[2018-03-27] MEDS: Metoprolol XL (24 HR) Succ 25 MG TAB.ER.24H PO SCH (09:35)
[2018-03-27] MEDS: Levofloxacin 500 MG/100 ML 500 MG/100 ML BAG IVPB SCH (09:36)
[2018-03-27] MEDS: methylPREDNISolone 125 MG/2 ML VIAL IVP SCH ×2 (09:36→16:56)
[2018-03-27] MEDS: Budesonide/Formoterol 160/4.5 1 PUFF INH IH SCH ×2 (09:37→20:56)
[2018-03-27] MEDS: Insulin LISPRO 300 UNITS/3 ML VIAL SQ SCH ×4 (09:38→20:54)
[2018-03-27] MEDS: tiZANidine 4 MG TABLET PO PRN ×2 (09:40→16:56)
[2018-03-27] MEDS: 0.9 % Sodium Chloride w KCl 20 MEQ/1,000 ML MLS IVC SCH (10:05)
[2018-03-27] MEDS ORDERED: 0.9 % Sodium Chloride 1,000 ML IVC SCH (10:15)
--- NOTE | 2018-03-27 11:52 | Internal Med Progress Note ---
Date of Encounter: 03/28/18 Time of Encounter: 11:52 - Assessment and plan (1) Acute exacerbation of chronic obstructive airways disease Current Visit: Yes Status: Acute Assessment and plan: Her breathing seems to be easier today. Less wheezing. Still needs aggressive nebulizer treatments and IV steroids. She still feels short of breath with just going a few feet to the toilet. Currently she is on room air. IV encouraged her to try to increase her activity in the room or even walk in the hallway if stable to get an idea of her improvement and ADLs (2) Chest pain Current Visit: Yes Status: Acute Assessment and plan: Chest pain appears be noncardiac. Tried to reassure patient. Qualifiers: Chest pain type: unspecified Qualified Code(s): R07.9 - Chest pain, unspecified (3) Gastroenteritis Current Visit: Yes Status: Acute Assessment and plan: No GI symptoms currently. She states the Phenergan has been helpful. (4) Diabetes mellitus type 2, diet-controlled Current Visit: No Status: Chronic Assessment and plan: Sugars are under relatively good control. (5) Chronic back pain greater than 3 months duration Current Visit: No Status: Chronic Assessment and plan: She did not have complaints of back pain today. (6) Hypertension Current Visit: No Status: Chronic Assessment and plan: Blood pressure was moderately elevated this morning. Her losartan was increased. Qualifiers: Hypertension type: essential hypertension Qualified Code(s): I10 - Essential (primary) hypertension (7) Depression Current Visit: No Status: Chronic Qualifiers: Depression Type: dysthymia Qualified Code(s): F34.1 - Dysthymic disorder (8) Sarcoidosis Current Visit: No Status: Chronic (9) Hypokalemia Current Visit: Yes Status: Acute Assessment and plan: Hypokalemia is resolved. IV fluids will be discontinued (10) DVT prophylaxis Current Visit: Yes Status: Acute - Subjective Interval history: Patient thinks that she may be getting a bit better. She still gets short of breath easily. She is really not done or been able to do much more than go to the toilet and back. She has been weaned to room air today though. She denies any sputum production. No cardiac type chest pain. She does get some chest discomfort based on her positioning in bed. When asked, she said her bowels have not moved for a few days and we talked about options. - Constitutional Vitals: Temp Pulse Resp BP Pulse Ox 98.4 F 74 16 152/76 93 03/27/18 11:06 03/27/18 11:06 03/27/18 11:06 03/27/18 11:06 03/27/18 11:06 General appearance: Present: A&O X 3, morbidly obese, answers questions appropriately - Respiratory Additional comments: Lungs show diminished breath sounds and scattered and expiratory wheezes. - Cardiovascular Cardiovascular exam: Present: RRR, +S1, +S2 - GI/Abdominal GI/Abdominal exam: Present: soft. Absent: tenderness - Extremities Exam Extremities exam: Absent: calf tenderness, pedal edema, tenderness Internal Medicine: Result - Labs CBC & Chem 7: 03/27/18 06:49 03/27/18 06:49 Labs: Labs are stable or reassuring. Short CBC 03/27/18 Range/Units 06:49 WBC 7.6 (4.3-11.1) K/mcL Hgb 12.5 (11.5-15.4) g/dL Hct 38.9 (35.3-44.9) % Plt Count 143 (140-400) K/mcL Neutrophils # 6.5 (1.6-8.9) K/mcL BMP 03/27/18 06:49 Sodium 139 Potassium 4.2 Chloride 107 Carbon Dioxide 27 BUN 16 Creatinine 0.79 Glucose 166 H Calcium 8.9 - VTE Reasons for not Prescribing Prophylaxis: Treatment not Indicated - Low risk for VTE Consult Discharge Plan - Plan Referrals: Vaishali Zhu SYSTEM DEVELOPER ASSOCIATE MANAGER [Primary Care Provider] -
[2018-03-27 13:49] LABS: Estimated Average Glucose 146 mg/dl; Hemoglobin A1C 6.7 %
--- NOTE | 2018-03-27 14:26 | Electrocardiograph Report ---
[place] [id number] Test Date: 2018-03-26 Pat Name: Manuel Guzman Department: 2001 Room: 113 Gender: F Director Communications: Jose : 1960 Requested By: Cindy Hanna Order Number: [id number] Reading MD: Jovanna Bautista Measurements Intervals [place] Rate: 65 P: 133 [place]: 141 QRS: 181 QRSD: 94 T: 146 QT: 376 QTc: 388 Interpretive Statements ARM LEADS REVERSED [INVERTED P AND QRS IN I] SINUS RHYTHM Electronically Signed On 03-27-2018 14:24:37 EDT by Jovanna Bautista
--- NOTE | 2018-03-27 14:28 | Electrocardiograph Report ---
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
[2018-03-27] MEDS: Psyllium 1 PACKET POWD.PACK PO SCH ×2 (16:56→20:54)
[2018-03-28] MEDS: methylPREDNISolone 125 MG/2 ML VIAL IVP SCH ×2 (00:09→09:50)
[2018-03-28] MEDS: Ipratropium/Albuterol Neb 3 ML IH SCH ×5 (00:10→22:13)
[2018-03-28] MEDS: *HR* Enoxaparin 40 MG/0.4 ML SYRINGE SQ SCH (06:16)
--- NOTE | 2018-03-28 07:45 | Internal Med Progress Note ---
Date of Encounter: 03/28/18 Time of Encounter: 07:43 - Assessment and plan (1) Acute exacerbation of chronic obstructive airways disease Current Visit: Yes Status: Acute Assessment and plan: She still has enough and expiratory wheezing and diminished breath sounds toward continued IV Solu-Medrol but I will cut this back from every 8 hours to once a day. I would like to see how she does with less IV Solu-Medrol. There is a good possibility she may be stable enough to discharge to home tomorrow on tapering dose of prednisone. She is spending more time without her oxygen. (2) Chest pain Current Visit: Yes Status: Acute Assessment and plan: This is noncardiac chest pain. I tried to reassure her. She has had a previous catheter with minimal coronary changes. She has had normal EKGs and negative troponins. Qualifiers: Chest pain type: unspecified Qualified Code(s): R07.9 - Chest pain, unspecified (3) Gastroenteritis Current Visit: Yes Status: Resolved Assessment and plan: She no longer has acute gastroenteritis type symptoms at sent her to the emergency room the first time. In fact she has not had a bowel movement in the past few days and is now taking stool softener and Metamucil. (4) Diabetes mellitus type 2, diet-controlled Current Visit: No Status: Chronic Assessment and plan: She is "diet controlled diabetes". Her glycohemoglobin is only minimally elevated at 6.7%. I have not initiated any oral agents at this time. This can be followed as an outpatient as well. (5) Chronic back pain greater than 3 months duration Current Visit: No Status: Chronic Assessment and plan: She has not had any complaints of back pain recently, and I did not ask her about it as she always complains of pain if I ask her (6) Hypertension Current Visit: Yes Status: Chronic Assessment and plan: Her blood pressure stays moderately elevated. In addition to her beta carlene and ARB I am going to add low-dose amlodipine for better control particularly in light of her diabetes diagnosis. Qualifiers: Hypertension type: essential hypertension Qualified Code(s): I10 - Essential (primary) hypertension (7) Depression Current Visit: No Status: Chronic Qualifiers: Depression Type: dysthymia Qualified Code(s): F34.1 - Dysthymic disorder (8) Sarcoidosis Current Visit: No Status: Chronic (9) Hypokalemia Current Visit: Yes Status: Inactive (10) DVT prophylaxis Current Visit: Yes Status: Acute - Subjective Interval history: Patient thinks they she is getting better but not back to her baseline. She states she still gets short of breath. She denies any cardiac type chest pain, but she still has chest pain sometimes with coughing or deep breathing or and she rolls over in bed. It seems to be very positional. No sputum production. She denies any nausea or vomiting or diarrhea at this point. She has been getting food out of the vending machine, and occasionally she still asks for Phenergan. She has not had a bowel movement yet despite her stool softener and Metamucil. No abdominal pain. She has been able to go without her oxygen some of the time - Constitutional Vitals: Temp Pulse Resp BP Pulse Ox 98.6 F 59 18 174/83 91 03/28/18 04:36 03/28/18 04:36 03/28/18 04:36 03/28/18 04:36 03/28/18 04:36 General appearance: Present: A&O X 3, morbidly obese, answers questions appropriately - Respiratory Additional comments: End expiratory wheezes heard throughout. Diminished breath sounds throughout. - Cardiovascular Cardiovascular exam: Present: RRR, +S1, +S2, systolic murmur (2/6 systolic murmur) - GI/Abdominal GI/Abdominal exam: Present: soft. Absent: tenderness - Extremities Exam Extremities exam: Absent: calf tenderness, pedal edema Internal Medicine: Result - Labs CBC & Chem 7: 03/27/18 06:49 03/27/18 06:49 Labs: Lab work was reviewed yesterday. Glycohemoglobin has now come back at 6.7%. She is "diet controlled diabetes" - VTE Reasons for not Prescribing Prophylaxis: Treatment not Indicated - Low risk for VTE Consult Discharge Plan - Plan Referrals: Vaishali Zhu CNP [Primary Care Provider] -
[2018-03-28] MEDS: Insulin LISPRO 300 UNITS/3 ML VIAL SQ SCH ×4 (08:02→22:11)
[2018-03-28] MEDS: Metoprolol XL (24 HR) Succ 25 MG TAB.ER.24H PO SCH (09:02)
[2018-03-28] MEDS: Bumetanide 1 MG TABLET PO SCH (09:02)
[2018-03-28] MEDS: Levofloxacin 500 MG/100 ML 500 MG/100 ML BAG IVPB SCH (09:03)
[2018-03-28] MEDS: Multivit/Ca/Min/Fe/FA 1 TAB TABLET PO SCH ×2 (09:03→22:12)
[2018-03-28] MEDS: Psyllium 1 PACKET POWD.PACK PO SCH ×3 (09:03→22:12)
[2018-03-28] MEDS: Pregabalin 75 MG CAPSULE PO SCH ×2 (09:03→22:12)
[2018-03-28] MEDS: Isosorbide MONOnitrate (24 HR) 30 MG TAB.ER.24H PO SCH (09:03)
[2018-03-28] MEDS: amLODIPine 5 MG TABLET PO SCH (09:50)
[2018-03-28] MEDS: Budesonide/Formoterol 160/4.5 1 PUFF INH IH SCH ×2 (09:55→22:14)
[2018-03-28] MEDS: *HR* HYDROcodone/Acet 10/325 mg TABLET PO PRN ×2 (09:57→22:13)
[2018-03-28] MEDS: tiZANidine 4 MG TABLET PO PRN ×2 (15:15→23:54)
[2018-03-29] MEDS: *HR* Enoxaparin 40 MG/0.4 ML SYRINGE SQ SCH (06:18)
[2018-03-29] MEDS: Ipratropium/Albuterol Neb 3 ML IH SCH ×2 (06:18→10:00)
[2018-03-29] MEDS: *HR* HYDROcodone/Acet 10/325 mg TABLET PO PRN ×2 (06:18→10:22)
[2018-03-29] MEDS: Insulin LISPRO 300 UNITS/3 ML VIAL SQ SCH ×2 (07:53→12:10)
[2018-03-29] MEDS: Multivit/Ca/Min/Fe/FA 1 TAB TABLET PO SCH (09:58)
[2018-03-29] MEDS: Isosorbide MONOnitrate (24 HR) 30 MG TAB.ER.24H PO SCH (09:58)
[2018-03-29] MEDS: Bumetanide 1 MG TABLET PO SCH (09:59)
[2018-03-29] MEDS: amLODIPine 5 MG TABLET PO SCH (09:59)
[2018-03-29] MEDS: Pregabalin 75 MG CAPSULE PO SCH (09:59)
[2018-03-29] MEDS: Metoprolol XL (24 HR) Succ 25 MG TAB.ER.24H PO SCH (10:00)
[2018-03-29] MEDS: Budesonide/Formoterol 160/4.5 1 PUFF INH IH SCH (10:01)
[2018-03-29] MEDS: methylPREDNISolone 125 MG/2 ML VIAL IVP SCH (10:09)
[2018-03-29] MEDS: tiZANidine 4 MG TABLET PO PRN (10:22)
[2018-03-29] MEDS: Psyllium 1 PACKET POWD.PACK PO SCH (10:34)
[2018-03-29 11:55] VITALS: BP 111/69
--- NOTE | 2018-03-29 13:24 | Discharge Summary ---
- NOTES TO OUTPATIENT PROVIDER Notes to Outpatient Provider: Patient is onburst steroids and further steroids tp be managed by you. Date of Encounter: 03/29/18 Time of Encounter: 13:22 - Discharge Diagnosis (1) Asthma exacerbation with COPD (chronic obstructive pulmonary disease) Priority: Primary Status: Acute Comments: Patient is doing much better than a couple of days ago. She has only minimal weakness. Instructed to follow-up with primary care provider within 5-7 days. (2) Diabetes mellitus type 2, diet-controlled Priority: Secondary Status: Chronic Comments: This is been under reasonable control even with high-dose steroids. (3) Lumbar back pain Priority: Secondary Status: Chronic Comments: Per Dr. Liu this is an ongoing complaint and will follow up with primary provider. Qualifiers: Chronicity: chronic Back pain laterality: midline Sciatica presence: unspecified whether sciatica present Qualified Code(s): M54.5 - Low back pain ; G89.29 - Other chronic pain Hospital course: Ms. Guzman is a 57 year old female who was admitted with shortness of breath. She is multiply complaining of other problems and states that study is not a very good day. However, when she was told she go home she brightened up and was pleased to be able to go. She notes lower abdominal tenderness which she says is because of emesis several days ago. She has been moving bowels normally without diarrhea, even today. She denies melena or hematochezia. Low back pain is not really any different. Patient has no complaint of chest discomfort, dyspnea, orthopnea, palpitations, nausea or vomiting, constipation or diarrhea, other changes in bowel habits, difficulty with urination, rash or itching, or other new complaints, except as mentioned above. Review of systems is otherwise negative. I discussed management of her care with nursing staff. Discharge discussed with: patient - Time Spent with Patient Total time spent providing and/or coordinating discharge services: - Discharge Medications Prescriptions: PredniSONE [Deltasone] 40 mg PO DAILY #7 tablet Home Medications: Buspirone [Buspar] 5 mg PO TID 03/31/15 [History] Esomeprazole Magnesium [Nexium] 40 mg PO HS 05/14/16 [History] Potassium Chloride [Klor-Con 10] 10 meq PO BID 07/17/16 [History] Pregabalin [Lyrica] 150 mg PO BID capsule 07/22/16 [Rx] Isosorbide MONOnitrate (24 HR) [Imdur] 15 mg PO DAILY 08/21/16 [History] Losartan Potassium [Cozaar] 50 mg PO DAILY 08/21/16 [History] Sertraline [Zoloft] 100 mg PO BID 08/21/16 [History] Simvastatin [Zocor] 10 mg PO HS 08/21/16 [History] Tizanidine HCl 4 mg PO TID PRN 08/21/16 [History] Albuterol Neb [Proventil Neb] 2.5 mg IH Q4H PRN 10/29/16 [History] Oxygen 2 l NS AD 10/29/16 [History] HYDROcodone/Acet 10/325 mg [[place] 10-325 mg] 1 tab PO BID PRN 07/25/17 [History] Dicyclomine [Bentyl] 10 mg PO TID 10/01/17 [History] Docusate Sodium [Dok] 100 mg PO BID PRN 10/01/17 [History] Budesonide/Formoterol 160/4.5 [Symbicort 160/4.5] 2 puff IH BIDR 01/20/18 [ History] Nitroglycerin [Nitrostat] 0.4 mg SL PRN PRN 01/20/18 [History] Albuterol Sulfate [Albuterol Inhaler] 2 puff IH Q4H PRN 02/05/18 [History] Bumetanide [Bumex] 0.5 mg PO DAILY 02/05/18 [History] Ipratropium/Albuterol Neb [Duoneb] 3 ml IH QID 02/05/18 [History] Metoprolol Succinate [Toprol Xl] 25 mg PO DAILY 02/05/18 [History] Multivitamin/Iron/Folic Acid [Cerovite Advanced Form Tab] 1 each PO DAILY [History] PredniSONE [Deltasone] 40 mg PO DAILY #7 tablet 03/29/18 [Rx] Allergies/Adverse Reactions: 3 Allergy/AdvReac Type Severity Reaction Status Date / Time Iodinated Contrast- Oral and Allergy Hives Verified 03/26/18 03:46 IV Dye [Iodinated Contrast Media - IV Dye] Sulfa (Sulfonamide Allergy Hives Verified 03/26/18 03:46 Antibiotics) tetanus and diphtheria Allergy Hives Verified 03/26/18 03:46 toxoids [Tetanus&Diphtheria Toxoid] Date of admission: 03/26/18 10:21 Primary care physician: Vaisahli Zhu CNP Consults: 03/26/18 13:26 Consult to Nutrition [CONS] Routine Comment: Consulting Provider: NUTRITION Reason for Dietary Consult: MST Score Consult to Pastoral Services [CONS] Routine Comment: Discharging clinician: Hamzah Dillon Anticipated date of discharge: 03/29/18 - Constitutional Vitals: Temp Pulse Resp BP Pulse Ox 97.9 F 70 16 111/69 94 03/29/18 11:00 03/29/18 11:00 03/29/18 11:00 03/29/18 11:00 03/29/18 11:00 General appearance: Present: morbidly obese Exam: Examination: (Except as mentioned above): General: In no apparent distress. Alert and oriented 3. Nondiaphoretic. Head: Atraumatic and normocephalic. Respiratory: No use of accessory muscles. Lungs have scattered mild wheezes, throughout. Airflow is good. Cardiovascular: Regular rate and rhythm without murmur appreciated. Abdomen: Bowel sounds are normal. No hepatosplenomegaly mass or tenderness appreciated. Obese and therefore difficult to palpate deeply. Extremities: No cyanosis clubbing or edema. Skin: Warm and non-diaphoretic with no new lesions noted. - Patient Status Disposition: Home, Self-Care Condition: Fair Functional capacity at discharge: independent ambulation Overall status at discharge: patient is progressing back to baseline - Discharge Instructions Instructions: Chronic Obstructive Pulmonary Disease (DC) Follow Up With: Vaishali Zhu CNP [Primary Care Provider] - - Diet and Activity Activity: wear oxygen at night Diet: advance to your usual diet, diabetic diet - VTE Reasons for not Prescribing Prophylaxis: Treatment not Indicated - Low risk for VTE
== END 2018-03-29 16:30 | disposition home or self-care (01) | DRG 202 ==
LOC: INPGRE 03:38 → EMEROOGRE 03:38 → INPGRE 06:55
PROVIDERS: ADMIT Family Medicine; ATTEND Family Medicine

== ENCOUNTER 2018-09-09 16:23 | Observation (INO) ==
[2018-09-09] MEDS ORDERED: Ipratropium/Albuterol Neb 3 ML IH ONE ×2 (16:48)
[2018-09-09] MEDS ORDERED: Ondansetron ODT 4 MG TAB.RAPDIS SL ONE (17:39)
[2018-09-09] MEDS ORDERED: Ondansetron 4 MG/2 ML VIAL IVP ONE (18:32)
[2018-09-09] MEDS ORDERED: 0.9 % Sodium Chloride 1,000 ML IVC ONE (18:32)
--- NOTE | 2018-09-09 18:34 | Emergency Department Note ---
Disposition Clinical Impression: Viral infection Disposition: Admitted As Inpatient Condition: Fair Referrals: Vaishali Zhu CNP [Primary Care Provider] - Forms: ED Satisfaction Letter Time of Disposition: 18:34 URI/Sore Throat HPI - General Chief Complaint: ED Upper Respiratory Infection Stated Complaint: coughing, wheezing, chills, headache Time Seen by Provider: 09/09/18 16:35 Source: patient Limitations: no limitations Nursing Notes Reviewed: Yes Vital Signs Reviewed: Yes - History of Present Illness HPI Narrative: 3 days ago Miss Guzman had the relatively sudden onset of headache muscle aches and a cough with increased shortness of breath. She has been using her DuoNeb at home with only some relief. At her normal baseline she typically needs to use this once a day and her albuterol at least 3 times a day and if she does not she feels somewhat tight in the chest and short of breath. 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 She had 104 fever at the time of the onset of symptoms and 104 earlier this morning as well. She did take some Tylenol just before coming here today to the emergency department. She is also had some vomiting and has done so for times today most recently about an hour before coming to the ER today. She still feeling nauseated. Is worse her stools go she has frequent loose stools and this pattern has not changed for many years. No blood in the stool. She is not dizzy or lightheaded. She has had a runny nose but no ear pain or throat pain. - Related Data Home Medications Medication Instructions Recorded Confirmed Buspirone [Buspar] 5 mg PO TID 03/31/15 09/09/18 Esomeprazole Magnesium [Nexium] 40 mg PO HS 05/14/16 09/09/18 Potassium Chloride [Klor-Con 10] 10 meq PO BIDWM 07/17/16 09/09/18 Isosorbide MONOnitrate (24 HR) 15 mg PO DAILY 08/21/16 09/09/18 [Imdur] Losartan Potassium [Cozaar] 50 mg PO DAILY 08/21/16 09/09/18 Sertraline [Zoloft] 100 mg PO BID 08/21/16 09/09/18 Simvastatin [Zocor] 10 mg PO HS 08/21/16 09/09/18 Albuterol Neb [Proventil Neb] 2.5 mg IH Q4H PRN 10/29/16 09/09/18 Oxygen 2 l NS AD 10/29/16 09/09/18 HYDROcodone/Acet 10/325 mg [[place] 1 tab PO BID PRN 07/25/17 09/09/18 10-325 mg] Dicyclomine [Bentyl] 10 mg PO QID 10/01/17 09/09/18 Docusate Sodium [Dok] 100 mg PO DAILY PRN 10/01/17 09/09/18 Budesonide/Formoterol 160/4.5 2 puff IH BIDR 01/20/18 09/09/18 [Symbicort 160/4.5] Nitroglycerin [Nitrostat] 0.4 mg SL PRN PRN 01/20/18 09/09/18 Albuterol Sulfate [Albuterol 2 puff IH Q4H PRN 02/05/18 09/09/18 Inhaler] Ipratropium/Albuterol Neb [Duoneb] 3 ml IH QID 02/05/18 09/09/18 Metoprolol Succinate [Toprol Xl] 25 mg PO DAILY 02/05/18 09/09/18 Cholecalciferol (Vitamin D3) 50,000 unit PO QWEEK 04/28/18 09/09/18 [Vitamin D] Furosemide [Lasix] 40 mg PO DAILY 04/28/18 09/09/18 Montelukast [Singulair] 10 mg PO HS 04/28/18 09/09/18 Ondansetron [Zofran] 8 mg PO BID 04/28/18 09/09/18 Ranitidine HCl [Acid Animal Care Assistant] 150 mg PO DAILY 04/28/18 09/09/18 Bumetanide 0.5 mg PO DAILY 05/28/18 09/09/18 Multivitamin/Iron/Folic Acid 1 each PO DAILY 05/28/18 09/09/18 [Cerovite Advanced Form Tab] Cyclobenzaprine [Flexeril] 10 mg PO DAILY 09/09/18 09/09/18 Previous Rx's Medication Instructions Recorded Pregabalin [Lyrica] 150 mg PO BID capsule 07/22/16 Promethazine [Phenergan] 25 mg PO Q6HR PRN #12 tablet 06/05/18 Nitrofurantoin (BID) [Macrobid] 100 mg PO BID #10 capsule 06/25/18 Allergies Allergy/AdvReac Type Severity Reaction Status Date / Time Iodinated Contrast- Oral and Allergy Hives Verified 09/09/18 20:10 IV Dye [Iodinated Contrast Media - IV Dye] Sulfa (Sulfonamide Allergy Hives Verified 09/09/18 20:10 Antibiotics) tetanus and diphtheria Allergy Hives Verified 09/09/18 20:10 toxoids [Tetanus&Diphtheria Toxoid] Constitutional: Reports: fever Eyes: Reports: eye pain (On direct questioning eyes hurt to move them around). Denies: vision change ENT ED: Reports: congestion. Denies: ear pain, throat pain Cardiovascular: Reports: dyspnea on exertion. Denies: chest pain Respiratory: Reports: cough. Denies: sputum production Gastrointestinal: Reports: nausea, vomiting, diarrhea Genitourinary: Reports: other (Decreased frequency of urination the last couple of days) Musculoskeletal: Reports: myalgia Integumentary: Denies: rash Neurological: Reports: headache Endocrine: Reports: fatigue URI PMH - Past Medical History Medical history: Reports: arthritis, asthma, COPD, DVT, diabetes, fibromyalgia, GERD, glaucoma, hyperlipidemia, hypertension, migraine, renal disease, thyroid disease, other Surgical history: Reports: cholecystectomy, hysterectomy, knee replacement, or thopedic, other, ZHENG/BSO, other Psychiatric history: Reports: anxiety, ADHD, bipolar, depression STOCK CONTROLLER history: Reports: no STOCK CONTROLLER history - Social History Smoking Status: 2nd Hand Smoke Exposure Alcohol use: Reports: none Drug use: Reports: none Physical Exam - General Limitations: no limitations General appearance: alert, in no apparent distress - Head Head exam: atraumatic, normocephalic - Eye Eye exam: Present: normal appearance. Absent: scleral icterus - ENT ENT exam: normal oropharynx, mucous membranes dry, TM's normal bilaterally - Neck Neck exam: Present: normal inspection. Absent: lymphadenopathy - Chest Chest inspection: Present: normal inspection, symmetric chest wall rise - Respiratory Respiratory exam: Present: wheezes (Bilateral symmetric and expiratory wheezes with fair air exchange), other (Able to speak in full sentences). Absent: respiratory distress, accessory muscle use - Cardiovascular Cardiovascular exam: Present: regular rate, normal rhythm, normal heart sounds - Abdominal Exam Abdominal exam: Present: soft, Non-Tender - Extremities Exam Extremities exam: Present: normal inspection. Absent: pedal edema - Neurological Exam Neurological exam: Present: alert - Psychiatric Psychiatric exam: Present: normal affect, normal mood - Skin Skin exam: Present: warm, dry Course Vital Signs Temperature 98.1 F 09/09/18 16:28 Pulse Rate 93 09/09/18 16:28 Respiratory Rate 18 09/09/18 16:28 Blood Pressure 183/92 09/09/18 16:28 O2 Sat by Pulse Oximetry 92 09/09/18 16:28 Temperature 98.2 F 09/09/18 21:17 Pulse Rate 75 09/09/18 21:17 Respiratory Rate 17 09/09/18 21:17 Blood Pressure 163/82 09/09/18 21:17 O2 Sat by Pulse Oximetry 92 09/09/18 21:17 Oxygen Delivery Oxygen Delivery Room Air Upper Respiratory Infection - MDM Narrative Medical decision making narrative: Influenza. Ms. Guzman describes a fairly typical case onset 3 days ago. Her asthma is already very poorly controlled you before the onset of this respiratory infection. After 2 DuoNeb she reported mild symptomatic relief. On repeat exam wheezes still are present bilaterally and expiratory. Pulse ox room air 94%. She appears well but does tell me that she continues to be nauseated and has had very little by mouth intake. 4 mg sublingual Zofran and 30 minutes later she tells me that she continues to be nauseated and does not have confidence that she will be able to drink a lot of fluids when she gets home which I do believe is very important for fighting off this infection. At this point decision was made to admit based on decreased by mouth intake secondary to vomiting and persistent nausea. I spoke with her family doctor that a proximally 7 PM and presented the case. She accepted admission. Ms. Guzman is in stable condition as she is transferred to the floor. Even though she is 3 days out she is a high risk patient with a clinical diagnosis of influenza. She was given empiric Tamiflu. We will also use Solu-Medrol but it reduced doses so that we do not immunocompromised her but hopefully will get the benefit for her reactive airways. Nausea vomiting as above. IV fluids IV Zofran clear liquid diet advanced as tolerated Hypokalemia. Probably secondary to vomiting. Terry coreas as an inpatient. - Lab Data Lab results reviewed: Yes I reviewed the patient's lab results. Result diagrams: 09/09/18 18:40 09/09/18 18:40 Lab Results 09/09/18 09/09/18 09/09/18 Range/Units 18:40 18:40 20:05 WBC 7.9 (4.3-11.1) K/mcL RBC 5.38 H (3.82-4.97) M/mcL Hgb 14.5 (11.5-15.4) g/dL Hct 45.6 H (35.3-44.9) % MCV 84.8 (83.0-100.0) fL MCH 27.0 L (28.0-33.3) pg MCHC 31.8 (31.6-35.5) g/dL RDW 15.4 H (11.5-14.5) % Plt Count 150 (140-400) K/mcL MPV 10.9 (9.4-12.4) fL Immature Gran % 0.4 (0-4) % Seg Neutrophils % 73.3 % Lymphocytes % 18.1 % Monocytes % 6.3 % Eosinophils % 1.3 % Basophils % 0.6 % Neutrophils # 5.8 (1.6-8.9) K/mcL Lymphocytes # 1.4 (0.6-4.6) K/mcL Monocytes # 0.5 (0.0-1.3) K/mcL Eosinophils # 0.1 (0.0-0.6) K/mcL Basophils # 0.1 (0.0-0.2) K/mcL PT 11.7 (9.4-12.1) Seconds INR 1.0 APTT 37.5 H (26.0-36.0) Seconds Sodium 142 (136-145) mEq/L Potassium 3.2 L (3.5-5.1) mEq/L Chloride 104 (98-107) mEq/L Carbon Dioxide 30 H (23-29) mEq/L BUN 12 (8-23) mg/dL Creatinine 0.82 (0.60-1.20) mg/dL Est GFR ( Amer) > 60 (> 60) Est GFR (Non-Af Amer) > 60 (> 60) BUN/Creatinine Ratio 15 (6-26) Glucose 148 H (70-105) mg/dL Calculated Osmolality 297 (280-300) Calcium 9.0 (8.6-10.3) mg/dL Magnesium 1.8 (1.6-2.6) mg/dL Total Bilirubin 0.3 (0.3-1.0) mg/dL AST 13 (13-39) Units/L ALT 13 (7-52) Units/L Alkaline Phosphatase 94 (34-104) Units/L Creatine Kinase 36 (30-223) Units/L Serum Total Protein 7.1 (6.4-8.9) g/dL Albumin 4.2 (3.5-5.7) g/dL Globulin 2.9 (2.4-3.5) g/dL Albumin/Globulin Ratio 1.4 (1.1-2.2) - Radiology Data Radiology results reviewed: Yes I reviewed the patient's radiology results.
[2018-09-09 18:47] LABS: Basophils # 0.1 K/mcL (0.0-0.2); Basophils % 0.6 %; Eosinophils # 0.1 K/mcL (0.0-0.6); Eosinophils % 1.3 %; Hematocrit 45.6 % (35.3-44.9); Hemoglobin 14.5 g/dL (11.5-15.4); Immature Granulocytes % 0.4 % (0-4); Lymphocytes # 1.4 K/mcL (0.6-4.6); Lymphocytes % 18.1 %; Mean Corpuscular HGB Conc 31.8 g/dL (31.6-35.5); Mean Corpuscular Volume 84.8 fL (83.0-100.0); Mean Platelet Volume 10.9 fL (9.4-12.4); Monocytes # 0.5 K/mcL (0.0-1.3); Monocytes % 6.3 %; Neutrophils # 5.8 K/mcL (1.6-8.9); Platelet Count 150 K/mcL (140-400); Red Blood Count 5.38 M/mcL (3.82-4.97); Red Cell Distribution Width 15.4 % (11.5-14.5); Segmented Neutrophils % 73.3 %
[2018-09-09 19:00] LABS: Alanine Aminotransferase 13 Units/L (7-52); Albumin 4.2 g/dL (3.5-5.7); Albumin/Globulin Ratio 1.4 (1.1-2.2); Alkaline Phosphatase 94 Units/L (34-104); Aspartate Amino Transferase 13 Units/L (13-39); BUN/Creatinine Ratio 15 (6-26); Bilirubin,Total 0.3 mg/dL (0.3-1.0); Blood Urea Nitrogen 12 mg/dL (8-23); Carbon Dioxide 30 mEq/L (23-29); Chloride 104 mEq/L (98-107); Creatine Kinase 36 Units/L (30-223); Globulin 2.9 g/dL (2.4-3.5); Glucose 148 mg/dL (70-105); Magnesium 1.8 mg/dL (1.6-2.6); Osmolality,Calculated 297 (280-300); Potassium 3.2 mEq/L (3.5-5.1); Sodium 142 mEq/L (136-145); Total Protein 7.1 g/dL (6.4-8.9); eGFR For Non-African Americans > 60 (> 60)
[2018-09-09] MEDS ORDERED: MethylPREDNISolone 40 MG/ML VIAL IVP ONE (19:39)
[2018-09-09 20:13] LABS: Prothrombin Time 11.7 Seconds (9.4-12.1)
[2018-09-09 20:15] LABS: Activated Partial Thrombo Time 37.5 Seconds (26.0-36.0)
--- NOTE | 2018-09-09 20:52 | Internal Med History&Physical ---
Date of Encounter: 09/09/18 Time of Encounter: 21:47 Assessment and Plan (1) Acute exacerbation of chronic obstructive airways disease Current visit: Yes Status: Acute She was in the ER where she received Solu-Medrol duo nebs. She had an influenza swab that was negative. But symptoms were felt consistent with an influenza- like illness so she was also given Tamiflu as well. She does have long-standing COPD she is on oxygen at home she was satting 97% on room air here. But she does have oxygen at home will put her in overnight for obs (2) DVT prophylaxis Current visit: Yes Status: Acute Lovenox and ambulation (3) Influenza-like illness Current visit: Yes Status: Acute (4) Depression Current visit: Yes Status: Chronic Will continue her home medication that does play a role in her health significantly. During times of stress she does not do as well. Qualifiers: Depression Type: unspecified Qualified Code(s): F32.9 - Major depressive disorder, single episode, unspecified (5) Diabetes mellitus type 2, diet-controlled Current visit: Yes Status: Chronic Accu-Cheks and home medicine. This will likely be elevated due to Solu-Medrol will do sliding scale medium. (6) GERD (gastroesophageal reflux disease) Current visit: Yes Status: Chronic Will continue a PPI on her. Qualifiers: Esophagitis presence: esophagitis presence not specified Qualified Code(s): K21.9 - Gastro-esophageal reflux disease without esophagitis (7) Hyperlipidemia Current visit: Yes Status: Chronic Will continue home medication Qualifiers: Hyperlipidemia type: mixed hyperlipidemia Qualified Code(s): E78.2 - Mixed hyperlipidemia (8) Hypertension Current visit: Yes Status: Chronic Her blood pressure was elevated in the ER we will continue home medication and keep an eye on that medication may need to be adjusted. Qualifiers: Hypertension type: essential hypertension Qualified Code(s): I10 - Essential (primary) hypertension (9) Hypothyroidism Current visit: Yes Status: Chronic Will continue home medication Qualifiers: Hypothyroidism type: acquired Qualified Code(s): E03.9 - Hypothyroidism, unspecified (10) IBS (irritable bowel syndrome) Current visit: No Status: Chronic Qualifiers: Irritable bowel syndrome type: unspecified Qualified Code(s): K58.9 - Irritable bowel syndrome without diarrhea (11) Lumbar back pain Current visit: No Status: Chronic Will continue her home medication on a when necessary not scheduled basis. She does take Fulton and Phenergan at home. And Flexeril and Lyrica Qualifiers: Chronicity: unspecified Back pain laterality: unspecified Sciatica presence: unspecified whether sciatica present Qualified Code(s): M54.5 - Low back pain (12) Emesis Current visit: Yes Status: Acute She has a history of nausea. She does take Phenergan on a regular basis. She did get 2 doses of Zofran in the ER. sHe still felt nauseated the ER started IV fluids on her. We will obs her and hopefully this emesis will not occur again she is currently hungry so we will go ahead and start clear diet as it is been over 6 a half hour since her last emesis. Qualifiers: Vomiting type: unspecified Vomiting Intractability: non-intractable Nausea presence: with nausea Qualified Code(s): R11.2 - Nausea with vomiting, unspecified Internal Medicine - H&P: HPI Chief complaint: cough,nausea Admitted From: Home History of present illness: Ms. Guzman is a 58 year old female Who presented to the emergency room with coughing wheezing and short of breath. She did receive Solu-Medrol she received a DuoNeb. She was satting 97% on room air here felt she was stable for discharge when she reported that she had had emesis several times of the day. She was given a dose of Zofran she still felt nauseated she was given a second dose of Zofran. She does have chronic nausea she takes promethazine at home. ER was concerned and started her on IV fluids. She does have a history of COPD with COPD exacerbations. Her felt her symptoms were consistent with influenza her flu swab was negative but they did go ahead and start Tamiflu on her since her symptoms were consistent with it. She says that she got sick 4 days ago. 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 Today she started throwing up she says she been throwing up all day has not stopped her last episode of emesis was 6-1/2 hours ago she did have some diarrhea all day last episode was 3 PM 6-1/2 hours ago. She currently is resting comfortable in the bed. She has not had any travel she has not had any ill contacts she does have significant secondhand smoke belligerence her smokes in the home. Her last nebulizer treatment was this morning her last dose of Fulton was last p.m. the last dose of Flexeril calling to her was last night as well. Past Med Surg Social Fam HX - Past Medical History Medical history: arthritis, asthma, COPD, DVT, diabetes, fibromyalgia, GERD, glaucoma, hyperlipidemia, hypertension, migraine, renal disease, thyroid disease (hypo), other (sarcoid,glaucoma,ibs, chronic back pain) Additional medical history: IBS, sarcoidosis Psychiatric history: anxiety, ADHD, depression - Past Surgical History Surgical History: cholecystectomy (1996), hysterectomy, knee replacement (right 2013, right #2 08/23/14), orthopedic, other, ZHENG/BSO, other (eye lid, dental, cath no stents,08/25/15 left knee arthroscopy, colonoscopy polyps 2006,2010, egd11/10/15) Additional surgical history: eye surgery, heart cath - Social History Smoking Status: 2nd Hand Smoke Exposure () Smokeless Tobacco Status: No Alcohol use: none Drug use: none - Family History Brother Adopted: No Family Member Ethnicity: Non- Living Status: Still Living Hx Family Cardiac Disorders: Yes Hx Family Respiratory Disorders: Yes Hx Family Cancer: No Hx Family GI Disorders: No Hx Family Endocrine Disorder: Yes (dm2) Hx Family Neuromuscular Disorders: Yes (cva) Paternal Grandmother Living Status: Hx Family Cancer: Yes (eye) Maternal Grandfather Living Status: Hx Family Neuromuscular Disorders: Yes (cva) Mother Living Status: Hx Family Cardiac Disorders: Yes ("Heart problems", carotid artery disease) Hx Family Respiratory Disorders: Yes Hx Family GI Disorders: Yes (GERD) Father Adopted: No Living Status: Hx Family Cardiac Disorders: Yes (Some type of heart condition or CAD, CVA) Internal Medicine - H&P: Meds Buspirone [Buspar] 5 mg PO TID 03/31/15 [History] Esomeprazole Magnesium [Nexium] 40 mg PO HS 05/14/16 [History] Potassium Chloride [Klor-Con 10] 10 meq PO BIDWM 07/17/16 [History] Pregabalin [Lyrica] 150 mg PO BID capsule 07/22/16 [Rx] Isosorbide MONOnitrate (24 HR) [Imdur] 15 mg PO DAILY 08/21/16 [History] Losartan Potassium [Cozaar] 50 mg PO DAILY 08/21/16 [History] Sertraline [Zoloft] 100 mg PO BID 08/21/16 [History] Simvastatin [Zocor] 10 mg PO HS 08/21/16 [History] Albuterol Neb [Proventil Neb] 2.5 mg IH Q4H PRN 10/29/16 [History] Oxygen 2 l NS AD 10/29/16 [History] HYDROcodone/Acet 10/325 mg [[place] 10-325 mg] 1 tab PO BID PRN 07/25/17 [History] Dicyclomine [Bentyl] 10 mg PO QID 10/01/17 [History] Docusate Sodium [Dok] 100 mg PO DAILY PRN 10/01/17 [History] Budesonide/Formoterol 160/4.5 [Symbicort 160/4.5] 2 puff IH BIDR 01/20/18 [History] Nitroglycerin [Nitrostat] 0.4 mg SL PRN PRN 01/20/18 [History] Albuterol Sulfate [Albuterol Inhaler] 2 puff IH Q4H PRN 02/05/18 [History] Ipratropium/Albuterol Neb [Duoneb] 3 ml IH QID 02/05/18 [History] Metoprolol Succinate [Toprol Xl] 25 mg PO DAILY 02/05/18 [History] Cholecalciferol (Vitamin D3) [Vitamin D] 50,000 unit PO QWEEK 04/28/18 [History] Furosemide [Lasix] 40 mg PO DAILY 04/28/18 [History] Montelukast [Singulair] 10 mg PO HS 04/28/18 [History] Ondansetron [Zofran] 8 mg PO BID 04/28/18 [History] Ranitidine HCl [Acid Messenger Floorperson] 150 mg PO DAILY 04/28/18 [History] Bumetanide 0.5 mg PO DAILY 05/28/18 [History] Multivitamin/Iron/Folic Acid [Cerovite Advanced Form Tab] 1 each PO DAILY 05/28/18 [History] Promethazine [Phenergan] 25 mg PO Q6HR PRN #12 tablet 06/05/18 [Rx] Nitrofurantoin (BID) [Macrobid] 100 mg PO BID #10 capsule 06/25/18 [Rx] Cyclobenzaprine [Flexeril] 10 mg PO DAILY 09/09/18 [History] Allergy/AdvReac Type Severity Reaction Status Date / Time Iodinated Contrast- Oral and Allergy Hives Verified 09/09/18 20:10 IV Dye [Iodinated Contrast Media - IV Dye] Sulfa (Sulfonamide Allergy Hives Verified 09/09/18 20:10 Antibiotics) tetanus and diphtheria Allergy Hives Verified 09/09/18 20:10 toxoids [Tetanus&Diphtheria Toxoid] All Systems PM: A 10-system review of systems was performed and is negative for pertinent findings except as documented above in the HPI. - Constitutional Constitutional: fatigue, malaise, weakness, no fever(s) (100.4) - EENT Eyes: no change in vision Nose, mouth and throat: nasal congestion, post-nasal drip, no hoarseness, no sore throat - Cardiovascular Cardiovascular ROS IM: dyspnea, lightheadedness, no chest pain, no edema, no palpitations, no syncope - Respiratory Respiratory: cough, dyspnea, wheezing, no hemoptysis - Gastrointestinal Gastrointestinal: cramping, diarrhea, nausea, vomiting, no abdominal pain, no constipation, no hematemesis, no hematochezia, no melena - Musculoskeletal Musculoskeletal ROS IM: back pain (Chronic), myalgias, no numbness, no stiffness - Integumentary Integumentary IM: no pruritus, no rash - Neurological Neurological ROS: no loss of vision - Endocrine Endocrine IM: fatigue - Constitutional Vitals: Temp Pulse Resp BP Pulse Ox 98.1 F 93 19 183/92 97 09/09/18 16:28 09/09/18 16:28 09/09/18 16:56 09/09/18 16:28 09/09/18 16:56 General appearance: Present: A&O X 3, pleasant, obese, answers questions appropriately. Absent: no acute distress - Head Head exam: Present: atraumatic, normocephalic - ENT ENT exam: Present: mucous membranes moist - Expanded ENT Exam Mouth exam: Present: moist Throat exam: Present: normal inspection - Respiratory Respiratory exam: Present: CTAB. Absent: accessory muscle use, respiratory distress, tachypnea - Cardiovascular Cardiovascular exam: Present: RRR, +S1, +S2 - GI/Abdominal GI/Abdominal exam: Present: normal bowel sounds, soft, no peritoneal signs. Absent: distended, guarding, hepatomegaly, mass (But obese limiting exam), rebound, splenomegaly, tenderness - Extremities Exam Extremities exam: Present: normal capillary refill, warm. Absent: pedal edema - Skin Skin exam: Present: dry, warm. Absent: rash Internal Med - H&P Results - Labs CBC & Chem 7: 09/09/18 18:40 09/09/18 18:40 Labs: Short CBC 09/09/18 Range/Units 18:40 WBC 7.9 (4.3-11.1) K/mcL Hgb 14.5 (11.5-15.4) g/dL Hct 45.6 H (35.3-44.9) % Plt Count 150 (140-400) K/mcL Neutrophils # 5.8 (1.6-8.9) K/mcL BMP 09/09/18 18:40 Sodium 142 Potassium 3.2 L Chloride 104 Carbon Dioxide 30 H BUN 12 Creatinine 0.82 Glucose 148 H Calcium 9.0 Liver Function 09/09/18 Range/Units 18:40 Total Bilirubin 0.3 (0.3-1.0) mg/dL AST 13 (13-39) Units/L ALT 13 (7-52) Units/L Alkaline Phosphatase 94 (34-104) Units/L Albumin 4.2 (3.5-5.7) g/dL - Impressions ITS Impressions Chest X-Ray 09/09/18 18:32 IMPRESSION: No acute abnormality identified. D/ / Srinivasa Edmond MD / Srinivasa Edmond MD Interpreting Provider: Srinivasa Edmond MD
[2018-09-09] MEDS ORDERED: Ipratropium/Albuterol Neb 3 ML IH PRN (20:53)
[2018-09-09] MEDS ORDERED: Naloxone 0.4 MG/ML INJ IVP PRN (20:53)
[2018-09-09] MEDS ORDERED: D5% in Water 1,000 ML IVC PRN ×2 (21:40→23:08)
[2018-09-09] MEDS ORDERED: *HR* Dextrose 50 % in Water (Syg) 50 ML SYRINGE IVP PRN ×2 (21:40→23:08)
[2018-09-09] MEDS ORDERED: Dextrose Gel 15 GM/37.5 ML TUBE PO PRN ×4 (21:40→23:08)
[2018-09-09] MEDS ORDERED: Insulin LISPRO 300 UNITS/3 ML VIAL SQ SCH (21:45)
[2018-09-09] MEDS: 0.9 % Sodium Chloride 1,000 ML IVC SCH (22:54)
[2018-09-09] MEDS: MethylPREDNISolone 40 MG/ML VIAL IVP SCH (22:59)
[2018-09-09] MEDS ORDERED: NON-FORMULARY MEDICATION 1 EACH EACH (Oxygen [Oxygen] 2 L) NS SCH (23:08)
[2018-09-09] MEDS: Ondansetron 4 MG/2 ML VIAL IVP SCH (23:11)
[2018-09-09] MEDS: *HR* HYDROcodone/Acet 10/325 mg TABLET PO PRN (23:44)
[2018-09-09] MEDS: Pregabalin 75 MG CAPSULE PO SCH (23:44)
[2018-09-09] MEDS: Nitrofurantoin (BID) 100 MG CAPSULE PO SCH (23:44)
[2018-09-10 00:30] LABS: Bilirubin,Urine Negative (Negative); Blood,Urine Trace-intact (Negative); Clarity,Urine Slightly Cloudy (Clear); Glucose,Urine (UA) Normal (Normal); Ketones,Urine Negative (Negative); Leukocyte Esterase,Urine Negative (Negative); Nitrite,Urine Negative (Negative); Protein,Urine Negative (Neg-Trace); Urobilinogen,Urine Normal (Normal)
[2018-09-10 00:31] LABS: Color,Urine Yellow (Yellow)
[2018-09-10 00:52] LABS: RBC,Urine 0-3 per hpf (0-3); Squamous Epithelial Cell,Urine Few per lpf (None-Few)
[2018-09-10] MEDS: Ondansetron 4 MG/2 ML VIAL IVP SCH ×3 (04:00→12:32)
[2018-09-10 06:15] LABS: BUN/Creatinine Ratio 13 (6-26); Blood Urea Nitrogen 10 mg/dL (8-23); Calcium 8.6 mg/dL (8.6-10.3); Carbon Dioxide 28 mEq/L (23-29); Chloride 107 mEq/L (98-107); Glucose 220 mg/dL (70-105); Osmolality,Calculated 298 (280-300); Sodium 141 mEq/L (136-145); eGFR For Non-African Americans > 60 (> 60)
[2018-09-10 06:21] LABS: Potassium 4.8 mEq/L (3.5-5.1)
[2018-09-10] MEDS: 0.9 % Sodium Chloride 1,000 ML IVC SCH (06:25)
[2018-09-10] MEDS: MethylPREDNISolone 40 MG/ML VIAL IVP SCH ×2 (06:26→12:31)
[2018-09-10] MEDS ORDERED: *HR* Enoxaparin 40 MG/0.4 ML SYRINGE SQ SCH (07:00)
[2018-09-10] MEDS ORDERED: Isosorbide MONOnitrate (24 HR) 30 MG TAB.ER.24H PO SCH (09:00)
[2018-09-10] MEDS ORDERED: Metoprolol XL (24 HR) Succ 25 MG TAB.ER.24H PO SCH (09:00)
[2018-09-10] MEDS ORDERED: Furosemide 40 MG TABLET PO SCH (09:00)
[2018-09-10] MEDS: Pregabalin 75 MG CAPSULE PO SCH (09:38)
[2018-09-10] MEDS: Nitrofurantoin (BID) 100 MG CAPSULE PO SCH (09:38)
[2018-09-10] MEDS: *HR* HYDROcodone/Acet 10/325 mg TABLET PO PRN (12:31)
[2018-09-10 13:22] VITALS: BP 178/93
--- NOTE | 2018-09-10 13:42 | Discharge Summary ---
Date of Encounter: 09/10/18 Time of Encounter: 14:14 - Discharge Diagnosis (1) Acute exacerbation of chronic obstructive airways disease Priority: Primary Status: Acute Comments: She was negative for influenza. She did get 2 doses of Tamiflu. She has not had fevers she is outside the window treatment we will not continue the Tamiflu as an outpatient we will give her steroids to go home with. She has not had a fever we will not send her on antibiotic she has nebulizers at home she also has oxygen at home but she has not required that except when she slipped at night. She is in a stable condition when she was discharged home. (2) DVT prophylaxis Priority: Secondary Status: Acute Comments: She was on Lovenox for she was here she also was ambulated in the [place]. She participated in the [employer] drill and did well. (3) Influenza-like illness Priority: Secondary Status: Acute Comments: She was negative for influenza she did receive several doses of Tamiflu given the fact she has no fever she is outside the window of treatment will not center home on this. (4) Depression Priority: Secondary Status: Chronic Comments: Continue on her home medications no changes were made to this Qualifiers: Depression Type: unspecified Qualified Code(s): F32.9 - Major depressive disorder, single episode, unspecified (5) Diabetes mellitus type 2, diet-controlled Priority: Secondary Status: Chronic Comments: She was not changed on a for home medications (6) GERD (gastroesophageal reflux disease) Priority: Secondary Status: Chronic Comments: Did not change any of her home medications. Qualifiers: Esophagitis presence: esophagitis presence not specified Qualified Code(s): K21.9 - Gastro-esophageal reflux disease without esophagitis (7) Hyperlipidemia Priority: Secondary Status: Chronic Comments: Did not change any of her home medications Qualifiers: Hyperlipidemia type: mixed hyperlipidemia Qualified Code(s): E78.2 - Mixed hyperlipidemia (8) Hypertension Priority: Secondary Status: Chronic Comments: Her on her same home medication Qualifiers: Hypertension type: essential hypertension Qualified Code(s): I10 - Essential (primary) hypertension (9) Hypothyroidism Priority: Secondary Status: Chronic Comments: No changes were made her home medication Qualifiers: Hypothyroidism type: acquired Qualified Code(s): E03.9 - Hypothyroidism, unspecified (10) IBS (irritable bowel syndrome) Priority: Secondary Status: Chronic Comments: Is a chronic ongoing issue for her. She has not had any stools and she has been here she has not had any emesis since she has been here she has been tolerating oral food Qualifiers: Irritable bowel syndrome type: unspecified Qualified Code(s): K58.9 - Irritable bowel syndrome without diarrhea (11) Lumbar back pain Priority: Secondary Status: Chronic Comments: No changes were made to her home medication Qualifiers: Chronicity: unspecified Back pain laterality: unspecified Sciatica presence: unspecified whether sciatica present Qualified Code(s): M54.5 - Low back pain (12) Emesis Priority: Secondary Status: Acute Comments: Has not had any emesis since prior to coming into the emergency room she has eaten Jell-O cheese and crackers a coffee lunch Qualifiers: Vomiting type: unspecified Vomiting Intractability: non-intractable Nausea presence: with nausea Qualified Code(s): R11.2 - Nausea with vomiting, unspecified Hospital course: Ms. Guzman is a 58 year old female She came in the hospital last night with coughing wheezing shortness of breath. She also stated that she had nausea vomiting and diarrhea. She has been on room air she did go on oxygen last night but she is normally on 2 L at home. She has been satting okay on room air today. She did ambulate out to the [place] for our [employer] drills she did fine she was not coughing wheezing or short of breath with this. She has been running a fever. She ate all throughout the night several times jello cheese and crackers she ate eggs for breakfast she also kept her lunch down. She states she still has a sore throat and she is tired. Her flu swab was negative except for feeling tired and sore throat she is back to her baseline. I explained to her that this would not be cured overnight she can expect 2 weeks of runny nose and sore throat. Her hypokalemia is corrected this morning after she had her K rider. She has not had in the arms on telemetry she has been in sinus rhythm. We will go ahead and discharge her home and see her back in the office tomorrow - Time Spent with Patient Total time spent providing and/or coordinating discharge services: - Discharge Medications Prescriptions: New Ondansetron [Zofran] 4 mg IVP Q4HR vial predniSONE [PredniSONE] 60 mg PO DAILY 4 Days #12 tablet Continue Sertraline [Zoloft] 100 mg PO BID Losartan Potassium [Cozaar] 50 mg PO DAILY Isosorbide MONOnitrate (24 HR) [Imdur] 15 mg PO DAILY Simvastatin [Zocor] 10 mg PO HS Oxygen 2 l NS AD Albuterol Neb [Proventil Neb] 2.5 mg IH Q4H PRN PRN Reason: Shortness Of Breath/Wheezing Buspirone [Buspar] 5 mg PO TID Esomeprazole Magnesium [Nexium] 40 mg PO HS Potassium Chloride [Klor-Con 10] 10 meq PO BIDWM Pregabalin [Lyrica] 150 mg PO BID capsule HYDROcodone/Acet 10/325 mg [[place] 10-325 mg] 1 tab PO BID PRN PRN Reason: Pain Docusate Sodium [Dok] 100 mg PO DAILY PRN PRN Reason: Constipation Dicyclomine [Bentyl] 10 mg PO QID Nitroglycerin [Nitrostat] 0.4 mg SL PRN PRN PRN Reason: Chest Pain Budesonide/Formoterol 160/4.5 [Symbicort 160/4.5] 2 puff IH BIDR Ipratropium/Albuterol Neb [Duoneb] 3 ml IH QID Albuterol Sulfate [Albuterol Inhaler] 2 puff IH Q4H PRN PRN Reason: Shortness Of Breath Metoprolol Succinate [Toprol Xl] 25 mg PO DAILY Furosemide [Lasix] 40 mg PO DAILY Montelukast [Singulair] 10 mg PO HS Ranitidine HCl [Acid Horse Rider] 150 mg PO DAILY Cholecalciferol (Vitamin D3) [Vitamin D3] 50,000 unit PO QWEEK Multivitamin/Iron/Folic Acid [Cerovite Advanced Form Tab] 1 each PO DAILY Promethazine [Phenergan] 25 mg PO Q6HR PRN #12 tablet PRN Reason: Nausea Nitrofurantoin (BID) [Macrobid] 100 mg PO BID #10 capsule Cyclobenzaprine [Flexeril] 10 mg PO DAILY Discontinued Ondansetron [Zofran] 8 mg PO BID Bumetanide 0.5 mg PO DAILY Home Medications: Buspirone [Buspar] 5 mg PO TID 03/31/15 [History] Esomeprazole Magnesium [Nexium] 40 mg PO HS 05/14/16 [History] Potassium Chloride [Klor-Con 10] 10 meq PO BIDWM 07/17/16 [History] Pregabalin [Lyrica] 150 mg PO BID capsule 07/22/16 [Rx] Isosorbide MONOnitrate (24 HR) [Imdur] 15 mg PO DAILY 08/21/16 [History] Losartan Potassium [Cozaar] 50 mg PO DAILY 08/21/16 [History] Sertraline [Zoloft] 100 mg PO BID 08/21/16 [History] Simvastatin [Zocor] 10 mg PO HS 08/21/16 [History] Albuterol Neb [Proventil Neb] 2.5 mg IH Q4H PRN 10/29/16 [History] Oxygen 2 l NS AD 10/29/16 [History] HYDROcodone/Acet 10/325 mg [[place] 10-325 mg] 1 tab PO BID PRN 07/25/17 [History] Dicyclomine [Bentyl] 10 mg PO QID 10/01/17 [History] Docusate Sodium [Dok] 100 mg PO DAILY PRN 10/01/17 [History] Budesonide/Formoterol 160/4.5 [Symbicort 160/4.5] 2 puff IH BIDR 01/20/18 [History] Nitroglycerin [Nitrostat] 0.4 mg SL PRN PRN 01/20/18 [History] Albuterol Sulfate [Albuterol Inhaler] 2 puff IH Q4H PRN 02/05/18 [History] Ipratropium/Albuterol Neb [Duoneb] 3 ml IH QID 02/05/18 [History] Metoprolol Succinate [Toprol Xl] 25 mg PO DAILY 02/05/18 [History] Cholecalciferol (Vitamin D3) [Vitamin D3] 50,000 unit PO QWEEK 04/28/18 [History] Furosemide [Lasix] 40 mg PO DAILY 04/28/18 [History] Montelukast [Singulair] 10 mg PO HS 04/28/18 [History] Ranitidine HCl [Acid Horse Rider] 150 mg PO DAILY 04/28/18 [History] Multivitamin/Iron/Folic Acid [Cerovite Advanced Form Tab] 1 each PO DAILY 05/28/18 [History] Promethazine [Phenergan] 25 mg PO Q6HR PRN #12 tablet 06/05/18 [Rx] Nitrofurantoin (BID) [Macrobid] 100 mg PO BID #10 capsule 06/25/18 [Rx] Cyclobenzaprine [Flexeril] 10 mg PO DAILY 09/09/18 [History] Ondansetron [Zofran] 4 mg IVP Q4HR vial 09/10/18 [Rx] predniSONE [PredniSONE] 60 mg PO DAILY 4 Days #12 tablet 09/10/18 [Rx] Allergies/Adverse Reactions: Allergy/AdvReac Type Severity Reaction Status Date / Time Iodinated Contrast- Oral and Allergy Hives Verified 09/09/18 20:10 IV Dye [Iodinated Contrast Media - IV Dye] Sulfa (Sulfonamide Allergy Hives Verified 09/09/18 20:10 Antibiotics) tetanus and diphtheria Allergy Hives Verified 09/09/18 20:10 toxoids [Tetanus&Diphtheria Toxoid] Date of admission: 09/09/18 21:02 Primary care physician: Vaishali Zhu CNP - Constitutional Vitals: Temp Pulse Resp BP Pulse Ox 98.2 F 60 15 178/93 92 09/10/18 13:21 09/10/18 13:21 09/10/18 13:21 09/10/18 13:21 09/10/18 13:21 General appearance: Present: A&O X 3, pleasant, obese, answers questions appropriately. Absent: no acute distress - Head Head exam: Present: atraumatic, normocephalic - Neck Neck exam general surgery: Present: supple, trachea midline. Absent: tenderness - Respiratory Respiratory exam: Present: wheezes (1 expiratory cleared with cough) - Cardiovascular Cardiovascular exam: Present: RRR, +S1, +S2 - GI/Abdominal GI/Abdominal exam: Present: normal bowel sounds, soft, no peritoneal signs. Absent: distended, guarding, mass, tenderness - Extremities Exam Extremities exam: Present: normal capillary refill, warm. Absent: pedal edema - Skin Skin exam: Present: dry, warm. Absent: rash - Patient Status Disposition: Home, Self-Care Condition: Fair Overall status at discharge: patient is progressing back to baseline - Discharge Instructions Follow Up With: Vaishali Zhu CNP [Primary Care Provider] - Kirti Vargas MD [Partnered Physician] - 09/11/18 10:30 am
[2018-09-10] MEDS ORDERED: Insulin LISPRO 300 UNITS/3 ML VIAL SQ SCH (21:00)
== END 2018-09-10 16:05 | disposition home or self-care (01) ==
LOC: INPGRE 16:23 → EMEROOGRE 16:23 → INPGRE 21:14
PROVIDERS: ADMIT Family Medicine; ATTEND Family Medicine

== ENCOUNTER 2020-06-27 14:20 | Observation (INO) ==
[2020-06-27] MEDS ORDERED: methylPREDNISolone 125 MG/2 ML VIAL IVP ONE (14:57)
[2020-06-27] MEDS ORDERED: Ipratropium/Albuterol Neb 3 ML IH ONE (14:57)
[2020-06-27] MEDS ORDERED: Albuterol 2.5 MG/3 ML NEBULIZER IH ONE (14:57)
[2020-06-27 15:42] LABS: Basophils # 0.1 K/mcL (0.0-0.2); Basophils % 0.8 %; Eosinophils # 0.1 K/mcL (0.0-0.6); Eosinophils % 1.5 %; Hematocrit 46.6 % (35.3-44.9); Hemoglobin 14.3 g/dL (11.5-15.4); Immature Granulocytes % 0.2 % (0-4); Lymphocytes # 1.6 K/mcL (0.6-4.6); Lymphocytes % 17.7 %; Mean Corpuscular HGB Conc 30.7 g/dL (31.6-35.5); Mean Corpuscular Hemoglobin 25.1 pg (28.0-33.3); Mean Corpuscular Volume 81.8 fL (83.0-100.0); Mean Platelet Volume 10.9 fL (9.4-12.4); Monocytes # 0.5 K/mcL (0.0-1.3); Neutrophils # 6.6 K/mcL (1.6-8.9); Platelet Count 155 K/mcL (140-400); Red Cell Distribution Width 16.9 % (11.5-14.5); Segmented Neutrophils % 73.8 %; White Blood Count 8.9 K/mcL (4.3-11.1)
[2020-06-27 15:47] LABS: INR 1.2; Prothrombin Time 13.3 Seconds (9.4-12.1)
[2020-06-27 15:48] LABS: VBG HCO3 28 mEq/L (21-27); VBG PCO2 49 mmHg (41-51); VBG PH 7.37 pH Units (7.32-7.42); VBG PO2 66 mmHg (25-50)
[2020-06-27 15:50] LABS: Activated Partial Thrombo Time 25.3 Seconds (26.0-36.0)
[2020-06-27 15:51] LABS: Troponin I < 0.03 ng/mL (< 0.04)
[2020-06-27 15:55] LABS: Alanine Aminotransferase 10 Units/L (7-52); Albumin 4.2 g/dL (3.5-5.7); Albumin/Globulin Ratio 1.5 (1.1-2.2); Alkaline Phosphatase 87 Units/L (34-104); Aspartate Amino Transferase 16 Units/L (13-39); BUN/Creatinine Ratio 23 (6-26); Bilirubin,Direct 0.1 mg/dL (0.0-0.2); Bilirubin,Indirect 0.3 mg/dL (0.0-1.0); Bilirubin,Total 0.4 mg/dL (0.3-1.0); Blood Urea Nitrogen 18 mg/dL (8-23); Calcium 9.1 mg/dL (8.6-10.3); Carbon Dioxide 30 mEq/L (23-29); Chloride 101 mEq/L (98-107); Globulin 2.8 g/dL (2.4-3.5); Glucose 109 mg/dL (70-105); Osmolality,Calculated 290 (280-300); Sodium 139 mEq/L (136-145); eGFR For African Americans > 60 (> 60); eGFR For Non-African Americans > 60 (> 60)
[2020-06-27] MEDS ORDERED: Ondansetron ODT 4 MG TAB.RAPDIS SL PRN ×2 (16:35→16:42)
[2020-06-27] MEDS ORDERED: Naloxone 0.4 MG/ML INJ IVP PRN ×2 (16:35→16:42)
[2020-06-27] MEDS ORDERED: NON-FORMULARY MEDICATION 1 EACH EACH (Oxygen 2 L) NS PRN (16:44)
[2020-06-27] MEDS ORDERED: Nitroglycerin 0.4 MG TAB.SUBL SL PRN (16:44)
[2020-06-27] MEDS ORDERED: Azithromycin 250 MG TABLET PO SCH (16:45)
[2020-06-27] MEDS: Potassium Chloride Elixir 20 MEQ/15 ML UDC PO SCH (19:47)
[2020-06-27] MEDS: Azithromycin 250 MG TABLET PO SCH (19:47)
[2020-06-27] MEDS ORDERED: Ipratropium/Albuterol Neb 3 ML IH SCH ×2 (20:00→21:00)
[2020-06-27 20:03] LABS: Bilirubin,Urine Negative (Negative); Blood,Urine Trace-intact (Negative); Clarity,Urine Slightly Cloudy (Clear); Color,Urine Dark Yellow (Yellow); Glucose,Urine (UA) Normal (Normal); Ketones,Urine Trace mg/dL (Negative); Leukocyte Esterase,Urine Trace (Negative); Nitrite,Urine Negative (Negative); PH,Urine 5.5 pH Units (5.0-8.0); Protein,Urine Negative (Neg-Trace); Specific Gravity,Urine 1.025 (1.010-1.025); Urobilinogen,Urine Normal (Normal)
[2020-06-27 20:07] LABS: Bacteria,Urine Few per hpf (None-Few); RBC,Urine 0-3 per hpf (0-3); Squamous Epithelial Cell,Urine Few per hpf (None-Few)
[2020-06-27] MEDS: Budesonide/Formoterol 160/4.5 1 PUFF INH IH SCH (21:16)
[2020-06-27] MEDS: Ipratropium/Albuterol Neb 3 ML IH SCH (21:21)
[2020-06-27] MEDS: Pregabalin 75 MG CAPSULE PO SCH (21:48)
[2020-06-27] MEDS: *HR* HYDROcodone/Acet 7.5/325 mg TABLET PO PRN (21:49)
[2020-06-27] MEDS: *HR* Labetalol 20 MG/4 ML SYRINGE IVP PRN ×2 (22:09→23:25)
[2020-06-28] MEDS: Ondansetron ODT 4 MG TAB.RAPDIS SL PRN (01:46)
[2020-06-28] MEDS: *HR* Enoxaparin 40 MG/0.4 ML SYRINGE SQ SCH (05:12)
[2020-06-28] MEDS ORDERED: Ipratropium/Albuterol Neb 3 ML IH PRN (06:19)
[2020-06-28] MEDS: Budesonide/Formoterol 160/4.5 1 PUFF INH IH SCH ×2 (07:45→20:11)
[2020-06-28] MEDS: Ipratropium/Albuterol Neb 3 ML IH SCH ×4 (07:45→20:11)
[2020-06-28] MEDS: Tiotropium 10 INH DOSE IH SCH (07:46)
[2020-06-28] MEDS: Potassium Chloride Elixir 20 MEQ/15 ML UDC PO SCH ×2 (08:52→17:20)
[2020-06-28] MEDS: Metoprolol XL (24 HR) Succ 25 MG TAB.ER.24H PO SCH (08:53)
[2020-06-28] MEDS: Multivit/Ca/Min/Fe/FA 1 TAB TABLET PO SCH (08:53)
[2020-06-28] MEDS: Isosorbide MONOnitrate (24 HR) 30 MG TAB.ER.24H PO SCH (08:53)
[2020-06-28] MEDS: Pregabalin 75 MG CAPSULE PO SCH ×2 (08:53→20:34)
[2020-06-28] MEDS: Azithromycin 250 MG TABLET PO SCH (08:54)
[2020-06-28] MEDS: Furosemide 40 MG TABLET PO SCH (08:54)
[2020-06-28] MEDS: GlipiZIDE 5 MG TABLET PO SCH ×2 (08:54→17:20)
[2020-06-28] MEDS: predniSONE 20 MG TABLET PO SCH (08:54)
[2020-06-28] MEDS ORDERED: predniSONE 20 MG TABLET PO SCH (09:00)
[2020-06-28 12:19] LABS: BUN/Creatinine Ratio 23 (6-26); Blood Urea Nitrogen 20 mg/dL (8-23); Carbon Dioxide 27 mEq/L (23-29); Chloride 103 mEq/L (98-107); Glucose 112 mg/dL (70-105); Osmolality,Calculated 291 (280-300); Sodium 139 mEq/L (136-145); eGFR For African Americans > 60 (> 60); eGFR For Non-African Americans > 60 (> 60)
[2020-06-28] MEDS: Ketorolac 30 MG/ML VIAL IVP PRN (13:27)
[2020-06-28] MEDS ORDERED: Isovue-370 500 ML BOTTLE IVP ONE (13:47)
[2020-06-28] MEDS ORDERED: MethylPREDNISolone 40 MG/ML VIAL IVP ONE (14:47)
[2020-06-28] MEDS ORDERED: Furosemide 40 MG/4 ML VIAL IVP ONE (15:00)
[2020-06-28] MEDS: Melatonin 3 MG TABLET PO PRN (20:36)
[2020-06-29] MEDS: *HR* Enoxaparin 40 MG/0.4 ML SYRINGE SQ SCH (05:00)
[2020-06-29 05:11] LABS: BUN/Creatinine Ratio 28 (6-26); Blood Urea Nitrogen 28 mg/dL (8-23); Calcium 9.1 mg/dL (8.6-10.3); Carbon Dioxide 32 mEq/L (23-29); Chloride 100 mEq/L (98-107); Glucose 131 mg/dL (70-105); Osmolality,Calculated 297 (280-300); Potassium 4.2 mEq/L (3.5-5.1); Sodium 140 mEq/L (136-145); eGFR For African Americans > 60 (> 60); eGFR For Non-African Americans 56 (> 60)
[2020-06-29] MEDS: Budesonide/Formoterol 160/4.5 1 PUFF INH IH SCH ×2 (08:03→19:12)
[2020-06-29] MEDS: Tiotropium 10 INH DOSE IH SCH (08:07)
[2020-06-29] MEDS: Ipratropium/Albuterol Neb 3 ML IH SCH ×4 (08:12→19:22)
[2020-06-29] MEDS: Ketorolac 30 MG/ML VIAL IVP PRN (09:17)
[2020-06-29] MEDS: Pregabalin 75 MG CAPSULE PO SCH ×2 (09:28→19:58)
[2020-06-29] MEDS: Multivit/Ca/Min/Fe/FA 1 TAB TABLET PO SCH (09:29)
[2020-06-29] MEDS: Furosemide 40 MG TABLET PO SCH (09:29)
[2020-06-29] MEDS: predniSONE 20 MG TABLET PO SCH (09:29)
[2020-06-29] MEDS: Azithromycin 250 MG TABLET PO SCH (09:29)
[2020-06-29] MEDS: Isosorbide MONOnitrate (24 HR) 30 MG TAB.ER.24H PO SCH (09:29)
[2020-06-29] MEDS: Metoprolol XL (24 HR) Succ 25 MG TAB.ER.24H PO SCH (09:29)
[2020-06-29] MEDS: GlipiZIDE 5 MG TABLET PO SCH ×2 (09:30→17:33)
[2020-06-29] MEDS: Potassium Chloride Elixir 20 MEQ/15 ML UDC PO SCH ×2 (09:30→17:33)
[2020-06-29] MEDS: Pantoprazole 40 MG VIAL IVP SCH (15:35)
[2020-06-29] MEDS: Ondansetron ODT 4 MG TAB.RAPDIS SL PRN (15:41)
[2020-06-29] MEDS: *HR* HYDROcodone/Acet 7.5/325 mg TABLET PO PRN (15:46)
[2020-06-29] MEDS: levoFLOXacin 750 MG TABLET PO SCH (17:33)
[2020-06-29] MEDS ORDERED: SUMAtriptan succinate 25 MG TABLET PO ONE (17:49)
[2020-06-29] MEDS ORDERED: SUMAtriptan 6 MG/0.5 ML SQ ONE (19:00)
[2020-06-29] MEDS: Melatonin 3 MG TABLET PO PRN (19:59)
[2020-06-30] MEDS: *HR* Enoxaparin 40 MG/0.4 ML SYRINGE SQ SCH (04:23)
[2020-06-30] MEDS: Budesonide/Formoterol 160/4.5 1 PUFF INH IH SCH (07:35)
[2020-06-30] MEDS: Tiotropium 10 INH DOSE IH SCH (07:36)
[2020-06-30] MEDS: Ipratropium/Albuterol Neb 3 ML IH SCH ×3 (07:44→16:08)
[2020-06-30] MEDS: Potassium Chloride Elixir 20 MEQ/15 ML UDC PO SCH ×2 (08:25→16:31)
[2020-06-30] MEDS: levoFLOXacin 750 MG TABLET PO SCH (08:25)
[2020-06-30] MEDS: predniSONE 20 MG TABLET PO SCH (08:26)
[2020-06-30] MEDS: Furosemide 40 MG TABLET PO SCH (08:26)
[2020-06-30] MEDS: GlipiZIDE 5 MG TABLET PO SCH ×2 (08:26→16:33)
[2020-06-30] MEDS: Isosorbide MONOnitrate (24 HR) 30 MG TAB.ER.24H PO SCH (08:26)
[2020-06-30] MEDS: Pregabalin 75 MG CAPSULE PO SCH (08:26)
[2020-06-30] MEDS: Metoprolol XL (24 HR) Succ 25 MG TAB.ER.24H PO SCH (08:26)
[2020-06-30] MEDS: Multivit/Ca/Min/Fe/FA 1 TAB TABLET PO SCH (08:27)
[2020-06-30] MEDS: Pantoprazole 40 MG VIAL IVP SCH (08:27)
[2020-06-30] MEDS: Ketorolac 30 MG/ML VIAL IVP PRN (08:37)
[2020-06-30] MEDS: Ondansetron ODT 4 MG TAB.RAPDIS SL PRN (10:23)
[2020-06-30] MEDS: *HR* Labetalol 20 MG/4 ML SYRINGE IVP PRN (12:09)
[2020-06-30] MEDS ORDERED: SUMAtriptan 6 MG/0.5 ML SQ ONE (16:23)
[2020-06-30 17:28] VITALS: BP 153/78
== END 2020-06-30 19:00 | disposition home or self-care (01) ==
LOC: INPGRE 14:20 → EMEROOGRE 14:20 → INPGRE 19:56
PROVIDERS: ADMIT Family Medicine; ATTEND Family Medicine

== ENCOUNTER 2020-09-22 06:45 | Observation (INO) ==
[2020-09-22] MEDS ORDERED: Ondansetron 4 MG/2 ML VIAL IVP ONE (07:13)
[2020-09-22] MEDS ORDERED: *HR* FentaNYL (PF) 100 MCG/2 ML VIAL IVP ONE (07:14)
[2020-09-22 08:31] LABS: Basophils # 0.1 K/mcL (0.0-0.2); Basophils % 0.6 %; Eosinophils # 0.2 K/mcL (0.0-0.6); Hematocrit 45.4 % (35.3-44.9); Immature Granulocytes % 0.3 % (0-4); Lymphocytes # 1.8 K/mcL (0.6-4.6); Lymphocytes % 19.6 %; Mean Corpuscular HGB Conc 30.8 g/dL (31.6-35.5); Mean Corpuscular Hemoglobin 25.6 pg (28.0-33.3); Mean Corpuscular Volume 83.2 fL (83.0-100.0); Mean Platelet Volume 11.3 fL (9.4-12.4); Monocytes # 0.6 K/mcL (0.0-1.3); Monocytes % 6.8 %; Neutrophils # 6.6 K/mcL (1.6-8.9); Platelet Count 164 K/mcL (140-400); Red Blood Count 5.46 M/mcL (3.82-4.97); Red Cell Distribution Width 16.7 % (11.5-14.5); Segmented Neutrophils % 70.7 %; White Blood Count 9.4 K/mcL (4.3-11.1)
[2020-09-22 08:33] LABS: INR 1.1; Prothrombin Time 12.2 Seconds (9.4-12.1)
[2020-09-22 08:42] LABS: Alanine Aminotransferase 10 Units/L (7-52); Albumin 4.2 g/dL (3.5-5.7); Albumin/Globulin Ratio 1.4 (1.1-2.2); Alkaline Phosphatase 89 Units/L (34-104); Aspartate Amino Transferase 12 Units/L (13-39); BUN/Creatinine Ratio 21 (6-26); Bilirubin,Total 0.3 mg/dL (0.3-1.0); Blood Urea Nitrogen 16 mg/dL (8-23); Carbon Dioxide 27 mEq/L (23-29); Chloride 103 mEq/L (98-107); Globulin 2.9 g/dL (2.4-3.5); Glucose 115 mg/dL (70-105); Osmolality,Calculated 288 (280-300); Potassium 3.7 mEq/L (3.5-5.1); Sodium 138 mEq/L (136-145); Total Protein 7.1 g/dL (6.4-8.9); eGFR For African Americans > 60 (> 60); eGFR For Non-African Americans > 60 (> 60)
[2020-09-22] MEDS ORDERED: Ketorolac 30 MG/ML VIAL IVP ONE ×2 (10:15→10:35)
[2020-09-22] MEDS ORDERED: Dextrose Gel 15 GM/37.5 ML TUBE PO PRN ×2 (10:35)
[2020-09-22] MEDS ORDERED: Nitroglycerin 0.4 MG TAB.SUBL SL PRN (10:35)
[2020-09-22] MEDS ORDERED: *HR* Enoxaparin 40 MG/0.4 ML SYRINGE SQ ONE (10:35)
[2020-09-22] MEDS ORDERED: D5% in Water 1,000 ML IVC PRN (10:35)
[2020-09-22] MEDS ORDERED: Ondansetron ODT 4 MG TAB.RAPDIS SL PRN (10:35)
[2020-09-22] MEDS ORDERED: *HR* Dextrose 50 % in Water (Vial) 50 ML VIAL IVP PRN (10:35)
[2020-09-22] MEDS ORDERED: Naloxone 0.4 MG/ML INJ IVP PRN (10:35)
[2020-09-22] MEDS ORDERED: 0.9 % Sodium Chloride 1,000 ML IVC SCH (10:35)
[2020-09-22] MEDS ORDERED: *HR* HYDROcodone/Acet 7.5/325 mg TABLET PO PRN (10:35)
[2020-09-22 10:37] LABS: Bilirubin,Urine Small (Negative); Blood,Urine Negative (Negative); Clarity,Urine Clear (Clear); Color,Urine Yellow (Yellow); Glucose,Urine (UA) Normal (Normal); Ketones,Urine Negative (Negative); Leukocyte Esterase,Urine Negative (Negative); Nitrite,Urine Negative (Negative); PH,Urine 5.5 pH Units (5.0-8.0); Protein,Urine Trace mg/dL (Neg-Trace); Specific Gravity,Urine >= 1.030 (1.010-1.025); Urobilinogen,Urine Normal (Normal)
[2020-09-22] MEDS ORDERED: SUMATRIPTAN NS PRN (10:55)
[2020-09-22] MEDS ORDERED: Pregabalin 75 MG CAPSULE PO PRN (11:10)
[2020-09-22] MEDS ORDERED: Ipratropium/Albuterol Neb 3 ML IH PRN (11:11)
[2020-09-22] MEDS: Insulin LISPRO 300 UNITS/3 ML VIAL SUBQ SCH ×2 (12:39→16:51)
[2020-09-22] MEDS: GlipiZIDE 5 MG TABLET PO SCH ×2 (12:47→18:40)
[2020-09-22] MEDS: Multivit/Ca/Min/Fe/FA 1 TAB TABLET PO SCH (12:47)
[2020-09-22] MEDS: Potassium Chloride Elixir 20 MEQ/15 ML UDC PO SCH ×2 (12:47→18:40)
[2020-09-22] MEDS: Metoprolol XL (24 HR) Succ 25 MG TAB.ER.24H PO SCH (12:48)
[2020-09-22] MEDS: Furosemide 40 MG TABLET PO SCH (12:48)
[2020-09-22] MEDS ORDERED: GlipiZIDE 5 MG TABLET PO SCH (17:00)
[2020-09-22] MEDS ORDERED: Ipratropium/Albuterol Neb 3 ML IH SCH (22:00)
[2020-09-23 05:19] LABS: Basophils # 0.1 K/mcL (0.0-0.2); Basophils % 0.8 %; Eosinophils # 0.2 K/mcL (0.0-0.6); Eosinophils % 2.5 %; Hemoglobin 13.3 g/dL (11.5-15.4); Immature Granulocytes % 0.4 % (0-4); Lymphocytes # 2.1 K/mcL (0.6-4.6); Lymphocytes % 26.8 %; Mean Corpuscular HGB Conc 30.2 g/dL (31.6-35.5); Mean Corpuscular Hemoglobin 25.4 pg (28.0-33.3); Mean Corpuscular Volume 84.1 fL (83.0-100.0); Mean Platelet Volume 11.2 fL (9.4-12.4); Monocytes # 0.6 K/mcL (0.0-1.3); Monocytes % 7.9 %; Neutrophils # 4.7 K/mcL (1.6-8.9); Platelet Count 155 K/mcL (140-400); Red Blood Count 5.23 M/mcL (3.82-4.97); Red Cell Distribution Width 16.4 % (11.5-14.5); Segmented Neutrophils % 61.6 %; White Blood Count 7.7 K/mcL (4.3-11.1)
[2020-09-23] MEDS ORDERED: Acetaminophen 325 MG TABLET PO PRN (05:20)
[2020-09-23 05:29] LABS: BUN/Creatinine Ratio 17 (6-26); Blood Urea Nitrogen 15 mg/dL (8-23); Calcium 8.6 mg/dL (8.6-10.3); Carbon Dioxide 30 mEq/L (23-29); Chloride 103 mEq/L (98-107); Glucose 99 mg/dL (70-105); Osmolality,Calculated 291 (280-300); Potassium 3.7 mEq/L (3.5-5.1); Sodium 140 mEq/L (136-145); eGFR For African Americans > 60 (> 60); eGFR For Non-African Americans > 60 (> 60)
[2020-09-23] MEDS ORDERED: *HR* Enoxaparin 40 MG/0.4 ML SYRINGE SQ SCH (06:00)
[2020-09-23] MEDS: Insulin LISPRO 300 UNITS/3 ML VIAL SUBQ SCH ×2 (07:58→11:53)
[2020-09-23] MEDS: GlipiZIDE 5 MG TABLET PO SCH (08:27)
[2020-09-23] MEDS: Furosemide 40 MG TABLET PO SCH (08:27)
[2020-09-23] MEDS: Multivit/Ca/Min/Fe/FA 1 TAB TABLET PO SCH (08:27)
[2020-09-23] MEDS: Potassium Chloride Elixir 20 MEQ/15 ML UDC PO SCH (08:28)
[2020-09-23] MEDS ORDERED: Isosorbide MONOnitrate (24 HR) 30 MG TAB.ER.24H PO SCH (09:00)
[2020-09-23] MEDS ORDERED: Furosemide 20 MG TABLET PO SCH (09:00)
[2020-09-23] MEDS ORDERED: predniSONE 10 MG TABLET PO SCH (09:00)
[2020-09-23] MEDS ORDERED: Metoprolol XL (24 HR) Succ 25 MG TAB.ER.24H PO SCH (09:00)
[2020-09-23] MEDS ORDERED: Multivit/Ca/Min/Fe/FA 1 TAB TABLET PO SCH (09:00)
[2020-09-23] MEDS ORDERED: Tiotropium 10 INH DOSE IH SCH (10:00)
[2020-09-23 11:09] VITALS: BP 121/70
[2020-09-23] MEDS: Metoprolol XL (24 HR) Succ 25 MG TAB.ER.24H PO SCH (11:25)
[2020-09-23 12:20] LABS: Phosphorous 3.3 mg/dL (2.7-4.5)
[2020-09-23 12:32] LABS: Thyroid Stimulating Hormone 2.468 mcIU/mL (0.340-5.600)
[2020-09-23 20:00] LABS: Folate 17.6 ng/mL (3.0-16.0)
== END 2020-09-23 15:27 | disposition home or self-care (01) ==
LOC: INPGRE 06:45 → EMEROOGRE 06:45 → INPGRE 10:04
PROVIDERS: ADMIT Family Medicine; ATTEND Family Medicine

== ENCOUNTER 2021-05-05 14:42 | Observation (INO) ==
[2021-05-05] MEDS ORDERED: methylPREDNISolone 125 MG/2 ML VIAL IVP ONE (15:49)
[2021-05-05] MEDS ORDERED: Ipratropium/Albuterol Neb 3 ML IH ONE (15:49)
[2021-05-05] MEDS ORDERED: Ipratropium/Albuterol Neb 3 ML ONE (15:50)
[2021-05-05] MEDS ORDERED: Acetaminophen 325 MG TABLET PO ONE (16:45)
[2021-05-05 17:16] LABS: Alanine Aminotransferase 13 Units/L (7-52); Albumin/Globulin Ratio 1.2 (1.1-2.2); Alkaline Phosphatase 82 Units/L (34-104); Aspartate Amino Transferase 11 Units/L (13-39); BUN/Creatinine Ratio 18 (6-26); Bilirubin,Total 0.6 mg/dL (0.3-1.0); Blood Urea Nitrogen 14 mg/dL (8-23); Calcium 9.3 mg/dL (8.6-10.3); Carbon Dioxide 30 mEq/L (23-29); Chloride 103 mEq/L (98-107); Globulin 3.4 g/dL (2.4-3.5); Glucose 109 mg/dL (70-105); Osmolality,Calculated 293 (280-300); Potassium 3.7 mEq/L (3.5-5.1); Sodium 141 mEq/L (136-145); Total Protein 7.4 g/dL (6.4-8.9); eGFR For African Americans > 60 (> 60); eGFR For Non-African Americans > 60 (> 60)
[2021-05-05 17:20] LABS: Basophils # 0.1 K/mcL (0.0-0.2); Basophils % 0.6 %; Eosinophils # 0.1 K/mcL (0.0-0.6); Eosinophils % 1.1 %; Hematocrit 42.8 % (35.3-44.9); Hemoglobin 13.3 g/dL (11.5-15.4); Immature Granulocytes % 0.4 % (0-4); Lymphocytes # 1.3 K/mcL (0.6-4.6); Lymphocytes % 14.2 %; Mean Corpuscular HGB Conc 31.1 g/dL (31.6-35.5); Mean Corpuscular Hemoglobin 26.5 pg (28.0-33.3); Mean Corpuscular Volume 85.4 fL (83.0-100.0); Mean Platelet Volume 10.8 fL (9.4-12.4); Monocytes # 0.6 K/mcL (0.0-1.3); Monocytes % 6.5 %; Neutrophils # 7.2 K/mcL (1.6-8.9); Platelet Count 160 K/mcL (140-400); Red Blood Count 5.01 M/mcL (3.82-4.97); Red Cell Distribution Width 14.9 % (11.5-14.5); Segmented Neutrophils % 77.2 %; White Blood Count 9.4 K/mcL (4.3-11.1)
[2021-05-05] MEDS ORDERED: D5% in Water 1,000 ML IVC PRN ×2 (19:08→20:45)
[2021-05-05] MEDS ORDERED: Dextrose Gel 15 GM/37.5 ML TUBE PO PRN ×4 (19:08→20:45)
[2021-05-05] MEDS ORDERED: *HR* Dextrose 50 % in Water (Syg) 50 ML SYRINGE IVP PRN ×2 (19:08→20:45)
[2021-05-05] MEDS ORDERED: Ipratropium/Albuterol Neb 3 ML IH SCH (20:00)
[2021-05-05] MEDS ORDERED: *HR* Labetalol 20 MG/4 ML SYRINGE IVP PRN ×2 (20:24→20:45)
[2021-05-05] MEDS: Budesonide/Formoterol 160/4.5 1 PUFF INH IH SCH (21:00)
[2021-05-05] MEDS ORDERED: Insulin LISPRO 300 UNITS/3 ML VIAL SUBQ SCH (21:00)
[2021-05-05] MEDS ORDERED: Mag Hydrox/Al Hydrox/Simeth 30 ML UDC PO PRN (21:05)
[2021-05-05] MEDS ORDERED: Budesonide/Formoterol 160/4.5 1 PUFF INH IH SCH (22:00)
[2021-05-05] MEDS: Ipratropium/Albuterol Neb 3 ML IH SCH (23:33)
[2021-05-06] MEDS ORDERED: Acetaminophen 325 MG TABLET PO PRN (00:39)
[2021-05-06] MEDS ORDERED: Nitroglycerin 0.4 MG TAB.SUBL SL PRN (00:39)
[2021-05-06] MEDS ORDERED: DICLOFENAC SODIUM 1% TP PRN (01:11)
[2021-05-06] MEDS: Insulin LISPRO 300 UNITS/3 ML VIAL SUBQ SCH ×5 (02:12→21:20)
[2021-05-06] MEDS: Melatonin 3 MG TABLET PO PRN ×2 (02:14→21:23)
[2021-05-06] MEDS: *HR* HYDROcodone/Acet 7.5/325 mg TABLET PO PRN (02:29)
[2021-05-06 03:03] LABS: Bilirubin,Urine Small (Negative); Blood,Urine Negative (Negative); Clarity,Urine Cloudy (Clear); Color,Urine Yellow (Yellow); Glucose,Urine (UA) Normal (Normal); Ketones,Urine Negative (Negative); Leukocyte Esterase,Urine Negative (Negative); Nitrite,Urine Negative (Negative); PH,Urine 5.5 pH Units (5.0-8.0); Protein,Urine 30 mg/dL (Neg-Trace); Specific Gravity,Urine >= 1.030 (1.010-1.025); Urobilinogen,Urine Normal (Normal)
[2021-05-06 03:10] LABS: Amorphous Sediment,Urine Many per hpf (None-Few); Bacteria,Urine None Seen per hpf (None-Few); RBC,Urine 0-3 per hpf (0-3); Squamous Epithelial Cell,Urine Few per hpf (None-Few); WBC,Urine 0-3 per hpf (0-3)
[2021-05-06] MEDS: Ipratropium/Albuterol Neb 3 ML IH SCH ×5 (03:47→21:07)
[2021-05-06 05:47] LABS: Hematocrit 43.8 % (35.3-44.9); Hemoglobin 14.1 g/dL (11.5-15.4); Mean Corpuscular HGB Conc 32.2 g/dL (31.6-35.5); Mean Corpuscular Hemoglobin 27.6 pg (28.0-33.3); Mean Corpuscular Volume 85.7 fL (83.0-100.0); Mean Platelet Volume 10.2 fL (9.4-12.4); Platelet Count 148 K/mcL (140-400); Red Blood Count 5.11 M/mcL (3.82-4.97); Red Cell Distribution Width 14.2 % (11.5-14.5); White Blood Count 7.2 K/mcL (4.3-11.1)
[2021-05-06] MEDS ORDERED: *HR* Enoxaparin 40 MG/0.4 ML SYRINGE SQ SCH (06:00)
[2021-05-06 06:02] LABS: BUN/Creatinine Ratio 23 (6-26); Blood Urea Nitrogen 17 mg/dL (8-23); Calcium 9.1 mg/dL (8.6-10.3); Carbon Dioxide 22 mEq/L (23-29); Chloride 106 mEq/L (98-107); Glucose 195 mg/dL (70-105); Osmolality,Calculated 293 (280-300); Potassium 4.5 mEq/L (3.5-5.1); Sodium 138 mEq/L (136-145); eGFR For African Americans > 60 (> 60); eGFR For Non-African Americans > 60 (> 60)
[2021-05-06] MEDS: *HR* Enoxaparin 40 MG/0.4 ML SYRINGE SQ SCH (06:54)
[2021-05-06] MEDS: Budesonide/Formoterol 160/4.5 1 PUFF INH IH SCH ×2 (07:22→21:10)
[2021-05-06] MEDS ORDERED: Insulin LISPRO 300 UNITS/3 ML VIAL SUBQ SCH (07:30)
[2021-05-06] MEDS ORDERED: predniSONE 20 MG TABLET PO SCH ×2 (09:00)
[2021-05-06] MEDS: Isosorbide MONOnitrate (24 HR) 30 MG TAB.ER.24H PO SCH (10:37)
[2021-05-06] MEDS: Metoprolol XL (24 HR) Succ 25 MG TAB.ER.24H PO SCH (10:37)
[2021-05-06] MEDS: Multivit/Ca/Min/Fe/FA 1 TAB TABLET PO SCH (10:37)
[2021-05-06] MEDS: Pregabalin 75 MG CAPSULE PO SCH ×2 (10:38→21:07)
[2021-05-06] MEDS: Furosemide 40 MG TABLET PO SCH (10:38)
[2021-05-06] MEDS ORDERED: predniSONE 20 MG TABLET PO ONE (13:06)
[2021-05-06 13:46] LABS: Adenovirus Not Detected (Not Detect); Bordetella Pertussis Not Detected (Not Detect); Chlamydophila pneumoniae Not Detected (Not Detect); Coronavirus 229E Not Detected (Not Detect); Coronavirus HKU1 Not Detected (Not Detect); Coronavirus NL63 Not Detected (Not Detect); Coronavirus OC43 DETECTED (Not Detect); Human Metapneumovirus Not Detected (Not Detect); Human Rhinovirus/Enterovirus Not Detected (Not Detect); Influenza A Subtype 2009 H1 Not Detected (Not Detect); Influenza B Not Detected (Not Detect); Mycoplasma pneumoniae Not Detected (Not Detect); Parainfluenza Virus 1 Not Detected (Not Detect); Parainfluenza Virus 2 Not Detected (Not Detect); Parainfluenza Virus 3 Not Detected (Not Detect); Parainfluenza Virus 4 Not Detected (Not Detect); Respiratory Syncytial Virus Not Detected (Not Detect); SARS-CoV-2 Not Detected (Not Detect)
[2021-05-07] MEDS: Ipratropium/Albuterol Neb 3 ML IH SCH ×7 (01:04→23:23)
[2021-05-07] MEDS: *HR* Enoxaparin 40 MG/0.4 ML SYRINGE SQ SCH (05:13)
[2021-05-07] MEDS: *HR* HYDROcodone/Acet 7.5/325 mg TABLET PO PRN ×2 (05:16→21:25)
[2021-05-07] MEDS: Insulin LISPRO 300 UNITS/3 ML VIAL SUBQ SCH ×4 (08:28→21:25)
[2021-05-07] MEDS ORDERED: predniSONE 20 MG TABLET PO ONE (09:00)
[2021-05-07] MEDS: Metoprolol XL (24 HR) Succ 25 MG TAB.ER.24H PO SCH (09:47)
[2021-05-07] MEDS: Multivit/Ca/Min/Fe/FA 1 TAB TABLET PO SCH (09:47)
[2021-05-07] MEDS: Pregabalin 75 MG CAPSULE PO SCH ×2 (09:47→21:24)
[2021-05-07] MEDS: predniSONE 20 MG TABLET PO SCH (09:47)
[2021-05-07] MEDS: Isosorbide MONOnitrate (24 HR) 30 MG TAB.ER.24H PO SCH (09:48)
[2021-05-07] MEDS: Furosemide 40 MG TABLET PO SCH (09:48)
[2021-05-07] MEDS: Budesonide/Formoterol 160/4.5 1 PUFF INH IH SCH ×2 (10:16→19:46)
[2021-05-07] MEDS: Melatonin 3 MG TABLET PO PRN (21:25)
[2021-05-08] MEDS: Ipratropium/Albuterol Neb 3 ML IH SCH ×2 (03:37→04:51)
[2021-05-08 04:38] LABS: Basophils % 0.3 %; Hematocrit 38.8 % (35.3-44.9); Lymphocytes # 1.3 K/mcL (0.6-4.6); Lymphocytes % 16.9 %; Mean Corpuscular HGB Conc 31.2 g/dL (31.6-35.5); Mean Corpuscular Hemoglobin 26.4 pg (28.0-33.3); Mean Corpuscular Volume 84.7 fL (83.0-100.0); Mean Platelet Volume 10.1 fL (9.4-12.4); Monocytes # 0.6 K/mcL (0.0-1.3); Monocytes % 7.2 %; Neutrophils # 5.8 K/mcL (1.6-8.9); Platelet Count 153 K/mcL (140-400); Red Blood Count 4.58 M/mcL (3.82-4.97); Red Cell Distribution Width 14.7 % (11.5-14.5); Segmented Neutrophils % 74.6 %; White Blood Count 7.8 K/mcL (4.3-11.1)
[2021-05-08 04:41] LABS: Hemoglobin 12.1 g/dL (11.5-15.4)
[2021-05-08] MEDS: *HR* HYDROcodone/Acet 7.5/325 mg TABLET PO PRN (04:42)
[2021-05-08] MEDS: *HR* Enoxaparin 40 MG/0.4 ML SYRINGE SQ SCH (04:42)
[2021-05-08 04:53] LABS: BUN/Creatinine Ratio 36 (6-26); Blood Urea Nitrogen 27 mg/dL (8-23); Calcium 9.2 mg/dL (8.6-10.3); Carbon Dioxide 32 mEq/L (23-29); Chloride 103 mEq/L (98-107); Glucose 102 mg/dL (70-105); Osmolality,Calculated 297 (280-300); Sodium 141 mEq/L (136-145); eGFR For African Americans > 60 (> 60); eGFR For Non-African Americans > 60 (> 60)
[2021-05-08] MEDS ORDERED: Benzonatate 100 MG CAPSULE PO PRN (07:51)
[2021-05-08] MEDS: Insulin LISPRO 300 UNITS/3 ML VIAL SUBQ SCH ×2 (07:53→12:23)
[2021-05-08] MEDS: Metoprolol XL (24 HR) Succ 25 MG TAB.ER.24H PO SCH (07:56)
[2021-05-08] MEDS: Multivit/Ca/Min/Fe/FA 1 TAB TABLET PO SCH (07:56)
[2021-05-08] MEDS: Pregabalin 75 MG CAPSULE PO SCH (07:56)
[2021-05-08] MEDS: predniSONE 20 MG TABLET PO SCH (07:57)
[2021-05-08] MEDS: Isosorbide MONOnitrate (24 HR) 30 MG TAB.ER.24H PO SCH (07:57)
[2021-05-08] MEDS: Furosemide 40 MG TABLET PO SCH (07:57)
[2021-05-08] MEDS ORDERED: Perflutren Lipid Microsphere 1.3 ML in 0.9 % Sodium Chloride 8.7 ML IVP PRN (08:12)
[2021-05-08] MEDS ORDERED: Ondansetron ODT 4 MG TAB.RAPDIS SL PRN (08:18)
[2021-05-08] MEDS: Ipratropium 1 PUFF INHALER IH SCH ×2 (10:32→16:11)
[2021-05-08] MEDS: Budesonide/Formoterol 160/4.5 1 PUFF INH IH SCH (10:34)
[2021-05-08 14:47] VITALS: BP 109/61; PULSE 60; TEMP 97.6
[2021-05-08 16:17] VITALS: RESP 19; O2SAT 98
[2021-05-08] MEDS ORDERED: FLU Vac QV 21-22 (6Month+)/PF 0.5 ML SYRINGE IM ONE (18:07)
[2021-05-10 09:51] LABS: Estimated Average Glucose 151 mg/dl; Hemoglobin A1C 6.9 %
== END 2021-05-08 18:38 | disposition home health service (06) ==
LOC: EMEROOGRE 14:42 → INPGRE 14:42 → SUATTDRO 20:19
PROVIDERS: ADMIT Family Medicine; ATTEND Family Medicine